=== PATIENT | male | born 1945 | race Caucasian/White ===

== ENCOUNTER 2016-08-20 11:09 | Inpatient (IN) | payer MEDICARE, BC ==
[2016-08-20] MEDS ORDERED: NS 0.9% 1000 ML* 1,000 ML IV ONE (12:21)
[2016-08-20 12:29] LABS: Hematocrit 28 % (42-52); Hemoglobin 8.6 g/dl (14.0-18.0); Mean Corpuscular HGB Conc 31 g/dl (31-36); Mean Corpuscular Hemoglobin 24 pg (27-31); Mean Corpuscular Volume 78 fL (80-94); Mean Platelet Volume 8 um3 (7.4-10.4); Red Blood Count 3.61 10^6/ul (4.0-5.4); Red Cell Distribution Width 23 % (10.5-15); White Blood Count 21.1 10^3/ul (3.5-10.8)
[2016-08-20 12:41] LABS: ALT 34 U/L (7-52); AST 11 U/L (13-39); Albumin 3.2 g/dL (3.2-5.2); Alkaline Phosphatase 66 U/L (34-104); Anion Gap 8 mmol/L (2-11); BUN/Creatinine Ratio 17.5 (8-20); Blood Urea Nitrogen 21 mg/dL (6-24); CO2 Carbon Dioxide 26 mmol/L (22-32); Calcium 9.1 mg/dL (8.6-10.3); Chloride 93 mmol/L (101-111); EGFR African American 77.2 (>60); Globulin 3.3 g/dL (2-4); Glucose 119 mg/dL (70-100); Sodium 127 mmol/L (133-145); Total Protein 6.5 g/dL (6.4-8.9)
[2016-08-20 12:45] LABS: Add Diff/Slide Review? Slide Review Added; Comments Flag Yes
[2016-08-20 12:53] LABS: Urine Bacteria Absent (Absent); Urine Bilirubin Negative (Negative); Urine Glucose 1+(50 mg/dL) (Negative); Urine Nitrite Negative (Negative)
[2016-08-20] MEDS ORDERED: NS 0.9% 1000 ML* 400 ML IV ONE (13:37)
[2016-08-20] MEDS ORDERED: Vancomycin(*) 1,500 MG in NS 0.9% 250 ML* 250 ML IVPB ONE (13:38)
[2016-08-20] MEDS ORDERED: Piperac/Tazob 3.375 gm in NS* 3.375 GM/100 ML BAG IVPB ONE (13:38)
[2016-08-20 14:11] LABS: Hypochromasia 2+; Immature Granulocytes 18 % (0-9); Metamyelocytes % 1 % (0-2); Neutrophil % 79 % (38-83); Tear Drop Cells 1+
[2016-08-20 14:12] LABS: Microcytosis 1+; Polychromasia 1+
[2016-08-20 14:13] LABS: Macrocytosis 1+
--- NOTE | 2016-08-20 14:40 | RAD ---
INDICATION: Leukocytosis COMPARISON: None TECHNIQUE: PA and lateral views of the chest were obtained. FINDINGS: The heart and mediastinum are normal in size and contour. There is a patchy density involving the mid-level and lower left lung. On the lateral view chest x-ray is density appears to be bordered posteriorly by the major fissure indicating pneumonia of the left upper lobe. There is no evidence of large pleural effusion. Visualized bones are normal for the patient's age. There is no radiographic evidence of free air beneath the diaphragm IMPRESSION: LEFT UPPER LOBE PNEUMONIA.
[2016-08-20] MEDS ORDERED: Thiamine IV* 100 MG/ML 2 ML VIAL IM ONE (16:29)
[2016-08-20] MEDS ORDERED: Acetaminophen TAB* 325 MG PO PRN (16:29)
[2016-08-20] MEDS ORDERED: methylPREDNISolone 125 MG* 2 ML VIAL IV ONE (17:00)
[2016-08-20] MEDS ORDERED: LORazepam INJ* 2 MG/ML 1 ML VIAL IV SCH (17:00)
[2016-08-20 17:01] LABS: C Reactive Protein 426.69 mg/L (< 5.00)
[2016-08-20] MEDS ORDERED: Albuterol/Ipratropium NEB.SOL* Albuterol 2.5 MG/Ipratropium 0.5 MG 3 ML INH PRN (17:01)
[2016-08-20] MEDS: NS 0.9% 1000 ML* 1,000 ML IV SCH (17:32)
[2016-08-20 17:44] LABS: Alcohol < 10 mg/dL (<10)
[2016-08-20] MEDS ORDERED: Atorvastatin* 40 MG TAB PO SCH (18:00)
--- NOTE | 2016-08-20 18:44 | ED ---
Eduardo Leos Billy, scribed for Víctor Marks MD on 08/20/16 at 1221 . Complex/Multi-Sys Presentation - HPI Summary HPI Summary: Patient is a 70 year-old male coming to the ED after he was referred by Dr. Kerns for elevated WBC and dehydration. The patient complains of fever and chills (TMax 102F) for 2 days. He took Tylenol PEDIATRIC ANESTHESIOLOGIST which did not improve his symptoms. He also reports diarrhea without any blood in the stool or associated abdominal pain. Positive dizziness, cough, and congestion. Denies any sore throat or earache. Denies urinary symptoms. He has left foot pain secondary to gout, but he states this has been ongoing for several weeks and is unchanged. Denies home O2 or inhaler use. No PMHx of DM or COPD. No flu shot this year. - History Of Current Complaint Chief Complaint: EDFever Time Seen by Provider: 08/20/16 11:51 Hx Obtained From: Patient Onset/Duration: Gradual Onset, Lasting Days, Still Present Timing: Constant Severity Currently: Moderate Severity Initially: Moderate Aggravating Factor(s): n/a Alleviating Factor(s): n/a Associated Signs And Symptoms: Positive: Dizziness, Cough, Diarrhea, Fever, Other - congestion, chills. Negative: Abdominal Pain, Dysuria - Allergies/Home Medications Allergies/Adverse Reactions: Allergies Allergy/AdvReac Type Severity Reaction Status Date / Time No Known Allergies Allergy Verified 08/20/16 11:18 Home Medications: Home Medications Colchicine* [Colcrys*] 0.6 mg PO BID 08/20/16 [History Confirmed 08/20/16] predniSONE TAB* [Deltasone TAB*] 5 mg PO BID 08/20/16 [History Confirmed ] PMH/Surg Hx/FS Hx/Imm Hx Endocrine/Hematology History: Denies: Hx Diabetes Cardiovascular History: Reports: Hx Hypercholesterolemia, Hx Hypertension Denies: Hx Pacemaker/ICD History: Denies: Hx Dialysis, Hx Renal Disease Musculoskeletal History: Reports: Hx Bursitis, Hx Gout Sensory History: Reports: Hx Contacts or Glasses - for reading Denies: Hx Hearing Aid Opthamlomology History: Reports: Hx Contacts or Glasses - for reading Psychiatric History: Denies: Hx Panic Disorder - Surgical History Surgery Procedure, Year, and Place: 2011 cataract. Lt knee surgery Infectious Disease History: No Infectious Disease History: Denies: Traveled Outside the [place] in Last 30 Days - Family History Known Family History: Negative: Cardiac Disease, Hypertension, Diabetes - Social History Alcohol Use: Daily Alcohol Amount: 4-6/CANS DAY Substance Use Type: Reports: None Smoking Status (MU): Former Smoker Type: Cigarettes Amount Used/How Often: DOWN TO 4/DAY Length of Time of Smoking/Using Tobacco: 53 YEARS Have You Smoked in the Last Year: Yes Review of Systems Positive: Fever, Chills Positive: Other - nasal congestion. Negative: Sore Throat, Ear Ache Positive: Cough Positive: Diarrhea. Negative: Abdominal Pain Negative: dysuria, hematuria Positive: Other - left foot pain Neurological: Other - dizziness All Other Systems Reviewed And Are Negative: Yes Physical Exam - Summary Physical Exam Summary: General: Comfortable, pleasant, alert. He feels hot, but is nontoxic-appearing. HEENT: Moist mucosa. No pharyngeal redness. TMs pearly white without any effusions or redness. Neck: Soft, supple, no adenopathy, no edema. Heart: S1, S2, tachycardic. Negative murmur/rub/gallops Lungs: Clear, breathing comfortably, good air movement throughout. Negative wheezes/rales. Abd: Soft, flat, nontender. No guarding. Extremities: No edema, no calf tenderness. First MTP joint is mildly tender without skin breakdown; it is not hot or red. There is a shallow stage 3 ulcer outside the fifth MTP joint laterally; it is tender without surrounding redness , not hot, not fluctuant, not indurated, no streaking; it is tender, but he states it is no more than usual. Neuro: A&Ox3. Psych: Logical, coherent. Triage Information Reviewed: Yes Vital Signs On Initial Exam: Initial Vitals Temp Pulse Resp BP Pulse Ox 102.4 F 127 18 143/53 98 08/20/16 11:10 08/20/16 11:10 08/20/16 11:10 08/20/16 11:10 08/20/16 11:10 Vital Signs Reviewed: Yes Diagnostics - Vital Signs Vital Signs Temp Pulse Resp BP Pulse Ox 08/20/16 11:10 102.4 F 127 18 143/53 98 - Laboratory Lab Results: Lab Results 08/20/16 08/20/1608/20/16 Range/Units 12:10 12:10 12:10 WBC 21.1 H (3.5-10.8) 10^3/ul RBC 3.61 L (4.0-5.4) 10^6/ul Hgb 8.6 L (14.0-18.0) g/dl Hct 28 L (42-52) % MCV 78 L (80-94) fL MCH 24 L (27-31) pg MCHC 31 (31-36) g/dl RDW 23 H (10.5-15) % Plt Count 441 (150-450) 10^3/ul MPV 8 (7.4-10.4) um3 Immature Gran % (Auto) 18 H (0-9) % Neut % (Auto) 96.0 H (38-83) % Lymph % (Auto) 2.2 L (25-47) % Dickenson % (Auto) 1.7 (1-9) % Eos % (Auto) 0.1 (0-6) % Baso % (Auto) 0 (0-2) % Absolute Neuts (auto) 20.3 H (1.5-7.7) 10^3/ul Absolute Lymphs (auto) 0.5 L (1.0-4.8) 10^3/ul Absolute Monos (auto) 0.4 (0-0.8) 10^3/ul Absolute Eos (auto) 0 (0-0.6) 10^3/ul Absolute Basos (auto) 0 (0-0.2) 10^3/ul Absolute Nucleated RBC 0.01 10^3/ul Neutrophils % 79 (38-83) % Band Neutrophils % 17 H (0-8) % Lymphocytes % 2 L (25-47) % Monocytes % 1 (0-13) % Metamyelocytes % 1 (0-2) % Nucleated RBC % 0 Normal RBC Morphology Not Reportable Polychromasia 1+ Hypochromasia 2+ Microcytosis 1+ Macrocytosis 1+ Tear Drop Cells 1+ Hem Pathologist Commnt Pending INR (Anticoag Therapy) 1.21 H (0.89-1.11) APTT 28.8 (26.0-36.3) seconds Sodium 127 L (133-145) mmol/L Potassium 4.0 (3.5-5.0) mmol/L Chloride 93 L (101-111) mmol/L Carbon Dioxide 26 (22-32) mmol/L Anion Gap 8 (2-11) mmol/L BUN 21 (6-24) mg/dL Creatinine 1.20 H (0.67-1.17) mg/dL Est GFR ( Amer) 77.2 (>60) Est GFR (Non-Af Amer) 60.0 (>60) BUN/Creatinine Ratio 17.5 (8-20) Glucose 119 H (70-100) mg/dL Lactic Acid (0.5-2.0) mmol/L Calcium 9.1 (8.6-10.3) mg/dL Total Bilirubin 0.50 (0.2-1.0) mg/dL AST 11 L (13-39) U/L ALT 34 (7-52) U/L Alkaline Phosphatase 66 (34-104) U/L C-Reactive Protein 426.69 H (< 5.00) mg/L Total Protein 6.5 (6.4-8.9) g/dL Albumin 3.2 (3.2-5.2) g/dL Globulin 3.3 (2-4) g/dL Albumin/Globulin Ratio 1.0 (1-3) Procalcitonin (<0.6) ng/mL Urine Color Urine Appearance Urine pH (5-9) Ur Specific Kellogg (1.010-1.030) Urine Protein (Negative) Urine Ketones (Negative) Urine Blood (Negative) Urine Nitrate (Negative) Urine Bilirubin (Negative) Urine Urobilinogen (Negative) Ur Leukocyte Esterase (Negative) Urine WBC (Auto) (Absent) Urine RBC (Auto) (Absent) Ur Squamous Epith Cells (Absent) Urine Bacteria (Absent) Urine Glucose (Negative) Serum Alcohol < 10 (<10) mg/dL Influenza A (Rapid) (Negative) Influenza B (Rapid) (Negative) 08/20/16 08/20/16 08/20/16 Range/Units 12:10 12:10 12:24 WBC (3.5-10.8) 10^3/ul RBC (4.0-5.4) 10^6/ul Hgb (14.0-18.0) g/dl Hct (42-52) % MCV (80-94) fL MCH (27-31) pg MCHC (31-36) g/dl RDW (10.5-15) % Plt Count (150-450) 10^3/ul MPV (7.4-10.4) um3 Immature Gran % (Auto) (0-9) % Neut % (Auto) (38-83) % Lymph % (Auto) (25-47) % Dickenson % (Auto) (1-9) % Eos % (Auto) (0-6) % Baso % (Auto) (0-2) % Absolute Neuts (auto) (1.5-7.7) 10^3/ul Absolute Lymphs (auto) (1.0-4.8) 10^3/ul Absolute Monos (auto) (0-0.8) 10^3/ul Absolute Eos (auto) (0-0.6) 10^3/ul Absolute Basos (auto) (0-0.2) 10^3/ul Absolute Nucleated RBC 10^3/ul Neutrophils % (38-83) % Band Neutrophils % (0-8) % Lymphocytes % (25-47) % Monocytes % (0-13) % Metamyelocytes % (0-2) % Nucleated RBC % Normal RBC Morphology Polychromasia Hypochromasia Microcytosis Macrocytosis Tear Drop Cells Hem Pathologist Commnt INR (Anticoag Therapy) (0.89-1.11) APTT (26.0-36.3) seconds Sodium (133-145) mmol/L Potassium (3.5-5.0) mmol/L Chloride (101-111) mmol/L Carbon Dioxide (22-32) mmol/L Anion Gap (2-11) mmol/L BUN (6-24) mg/dL Creatinine (0.67-1.17) mg/dL Est GFR ( Amer) (>60) Est GFR (Non-Af Amer) (>60) BUN/Creatinine Ratio (8-20) Glucose (70-100) mg/dL Lactic Acid 2.0 (0.5-2.0) mmol/L Calcium (8.6-10.3) mg/dL Total Bilirubin (0.2-1.0) mg/dL AST (13-39) U/L ALT (7-52) U/L Alkaline Phosphatase (34-104) U/L C-Reactive Protein (< 5.00) mg/L Total Protein (6.4-8.9) g/dL Albumin (3.2-5.2) g/dL Globulin (2-4) g/dL Albumin/Globulin Ratio (1-3) Procalcitonin 3.9 H (<0.6) ng/mL Urine Color Urine Appearance Urine pH (5-9) Ur Specific Kellogg (1.010-1.030) Urine Protein (Negative) Urine Ketones (Negative) Urine Blood (Negative) Urine Nitrate (Negative) Urine Bilirubin (Negative) Urine Urobilinogen (Negative) Ur Leukocyte Esterase (Negative) Urine WBC (Auto) (Absent) Urine RBC (Auto) (Absent) Ur Squamous Epith Cells (Absent) Urine Bacteria (Absent) Urine Glucose (Negative) Serum Alcohol (<10) mg/dL Influenza A (Rapid) Negative (Negative) Influenza B (Rapid) Negative (Negative) 08/20/16 08/20/16 Range/Units 12:27 17:45 WBC (3.5-10.8) 10^3/ul RBC (4.0-5.4) 10^6/ul Hgb (14.0-18.0) g/dl Hct (42-52) % MCV (80-94) fL MCH (27-31) pg MCHC (31-36) g/dl RDW (10.5-15) % Plt Count (150-450) 10^3/ul MPV (7.4-10.4) um3 Immature Gran % (Auto) (0-9) % Neut % (Auto) (38-83) % Lymph % (Auto) (25-47) % Dickenson % (Auto) (1-9) % Eos % (Auto) (0-6) % Baso % (Auto) (0-2) % Absolute Neuts (auto) (1.5-7.7) 10^3/ul Absolute Lymphs (auto) (1.0-4.8) 10^3/ul Absolute Monos (auto) (0-0.8) 10^3/ul Absolute Eos (auto) (0-0.6) 10^3/ul Absolute Basos (auto) (0-0.2) 10^3/ul Absolute Nucleated RBC 10^3/ul Neutrophils % (38-83) % Band Neutrophils % (0-8) % Lymphocytes % (25-47) % Monocytes % (0-13) % Metamyelocytes % (0-2) % Nucleated RBC % Normal RBC Morphology Polychromasia Hypochromasia Microcytosis Macrocytosis Tear Drop Cells Hem Pathologist Commnt INR (Anticoag Therapy) (0.89-1.11) APTT (26.0-36.3) seconds Sodium (133-145) mmol/L Potassium (3.5-5.0) mmol/L Chloride (101-111) mmol/L Carbon Dioxide (22-32) mmol/L Anion Gap (2-11) mmol/L BUN (6-24) mg/dL Creatinine (0.67-1.17) mg/dL Est GFR ( Amer) (>60) Est GFR (Non-Af Amer) (>60) BUN/Creatinine Ratio (8-20) Glucose (70-100) mg/dL Lactic Acid 1.8 (0.5-2.0) mmol/L Calcium (8.6-10.3) mg/dL Total Bilirubin (0.2-1.0) mg/dL AST (13-39) U/L ALT (7-52) U/L Alkaline Phosphatase (34-104) U/L C-Reactive Protein (< 5.00) mg/L Total Protein (6.4-8.9) g/dL Albumin (3.2-5.2) g/dL Globulin (2-4) g/dL Albumin/Globulin Ratio (1-3) Procalcitonin (<0.6) ng/mL Urine Color Yellow Urine Appearance Clear Urine pH 6.0 (5-9) Ur Specific Kellogg 1.016 (1.010-1.030) Urine Protein 2+(100 mg/dl) H (Negative) Urine Ketones Negative (Negative) Urine Blood Negative (Negative) Urine Nitrate Negative (Negative) Urine Bilirubin Negative (Negative) Urine Urobilinogen Negative (Negative) Ur Leukocyte Esterase Negative (Negative) Urine WBC (Auto) Trace(0-5/hpf) (Absent) Urine RBC (Auto) Trace(0-2/hpf) (Absent) Ur Squamous Epith Cells Present H (Absent) Urine Bacteria Absent (Absent) Urine Glucose 1+(50 mg/dl) H (Negative) Serum Alcohol (<10) mg/dL Influenza A (Rapid) (Negative) Influenza B (Rapid) (Negative) Result Diagrams: 08/20/16 12:10 08/20/16 12:10 Lab Statement: Any lab studies that have been ordered have been reviewed, and results considered in the medical decision making process. - Radiology CXR Radiology Interpretation Completed By: Radiologist - LEFT UPPER LOBE PNEUMONIA. Complex Multi-Symp Course/Dx Assessment/Plan: For the last 2 days, he has had a high fever, chills, increased cough, but no other focal signs or symptoms of infection. Yes[place] WBC was 63737, today it is [address]. I believe this is higher than can be simply explained by viral illness. At this point, with fever, tachycardia, very elevated WBC, I will treat him according to sepsis protocol and admit for at least 24 hours to see if blood cultures are negative. He has also had diarrhea and has been admitted several times in the last 90 days. We will add on C. dif to complete the workup. - Diagnoses Differential Diagnoses/HQI/PQRI: Urinary Tract Infection Provider Diagnoses: Sepsis - Physician Notifications Discussed Care Of Patient With: Dr. Arzate (hospitalist) @ 1437: accepts admission. Discharge - Discharge Plan Condition: Stable Disposition: ADMITTED TO [facility] The documentation as recorded by the Eduardo santana Billy accurately reflects the service I personally performed and the decisions made by me, Víctor Marks MD.
[2016-08-20] MEDS ORDERED: Azithromycin IV(*) 500 MG in NS 0.9% 250 ML* 250 ML IVPB SCH (20:00)
[2016-08-20] MEDS: Colchicine* 0.6 MG TAB PO SCH (21:26)
[2016-08-20] MEDS: Heparin VIAL(*) 5000 UNITS/ML VIAL (FIVE THOUSAND) SUBCUT SCH (21:26)
[2016-08-20] MEDS: Gabapentin CAP(*) 300 MG PO SCH (21:26)
[2016-08-20] MEDS: cefTRIAXone VIAL(*) 1,000 MG in NS 0.9% 50 ML* 50 ML IVPB SCH (22:44)
[2016-08-21] MEDS: NS 0.9% 1000 ML* 1,000 ML IV SCH (02:11)
--- NOTE | 2016-08-21 04:05 | HP ---
HISTORY AND PHYSICAL: DATE OF ADMISSION: 08/20/16 PROVIDER: Juan Carlos Milton NP ATTENDING PHYSICIAN: Dr. Arzate *(report dictated by Juan Carlos Milton NP). PRIMARY CARE PROVIDER: Dr. Geronimo. CHIEF COMPLAINT: Referred by Dr. Purvis for elevated white blood cell count and dehydration. HISTORY OF PRESENT ILLNESS: Mr. Nino is a 70-year-old male with a past medical history of hypertension, peripheral vascular disease, status post femoral stenting, alcohol abuse, hyperlipidemia and gout, who presents to the emergency department today referred by Dr. Purvis for increased white blood cell count and dehydration. Mr. Nino reports that yesterday he went to his primary care doctor's office, was seen as a same day appointment due to 1 day of fevers. The patient reports on 2 days ago, he developed a fever of 101 and felt like he was coming down with a cold. Then yesterday morning, he noted that he was still feverish and went to his primary care doctor who referred him to get labs. He was called this morning with recommendation to come to the emergency department. The patient reports he has also had accompanied diarrhea for 2 days. He denies any blood in his stool. He reports mildly productive cough. He reports normal appetite. No abdominal pain, nausea , or vomiting. Denies chest pain. He does report some shortness of breath when he coughs. Denies any lower extremity edema. He reports general myalgias. No headache, vision changes, gait abnormalities. No rashes, lesions, or open wounds. In the emergency department, reviewing the patient's lab values from yesterday, it was noted yesterday he had a white blood cell count of 33,000 and today is 21 ,000. It was noted yesterday, he had band neutrophils of 40 and today they are down to 17. Creatinine appears to be slightly elevated above his baseline and is noted to be hyponatremic. His temperature in the emergency department on arrival was 102.4. As well, he is noted to have tachycardia with a heart rate in the low 100s and blood pressure on the soft side, systolically in the low 100s per patient, screening positive for sepsis. The patient has a chest x-ray showing left upper lobe pneumonia and elevated procalcitonin of 3.9. Hospital Medicine was asked to evaluate the patient for sepsis secondary to pneumonia. PAST MEDICAL HISTORY: 1. Gout. Per patient, he had active gout in his left big toe, which he reports now to be much better. 2. Hypertension. 3. Hyperlipidemia. 4. Alcohol abuse. No history of detox. 5. Neuropathy. 6. History of olecranon bursitis in the left elbow. 7. Peripheral vascular disease, status post femoral endarterectomy and lower extremity stent, on aspirin and Plavix. 8. Recent hospitalization on 07/12/16 to 07/13/16 for acute blood loss anemia , suspected secondary to GI bleed, presenting with a hemoglobin of 5.7. He underwent a colonoscopy on 07/27/[address] Carrillo, which showed 2 large polyps which were removed per Dr. Carrillo. He thought that the possible GI bleed could have been secondary to the large polyp. 9. History of tobacco abuse, quitting approximately a year and a half ago. HOME MEDICATIONS: 1. Allopurinol 100 mg p.o. daily. 2. Prednisone 5 mg p.o. b.i.d. 3. Colchicine 0.6 mg p.o. b.i.d. 4. Lipitor 40 mg p.o. q.p.m. 5. Lisinopril 40 mg p.o. daily. 6. Gabapentin 300 mg p.o. b.i.d. 7. Norvasc 2.5 mg p.o. b.i.d. 8. Protonix 20 mg p.o. daily. ALLERGIES: No known allergies. FAMILY HISTORY: No family history of coronary artery disease, diabetes, or cancer. SOCIAL HISTORY: The patient has a 53-year smoking history, quitting about a year and a half ago. The patient reports he has not had an alcoholic drink since Thanksgiving of this year. Denies recreational drug use. The patient lives in his own home with his , who is his healthcare proxy. They have 2 grown children. His 's name is Mitchell Nino, number [phone] or . REVIEW OF SYSTEMS: A 14-point review of systems was performed. All the pertinent positives and negatives are mentioned in the history of present illness. All the remaining systems are negative. PHYSICAL EXAMINATION GENERAL: Chronically ill-appearing 70-year-old male, sitting up in the emergency department stretcher, alert and oriented x3, in no acute distress, appropriate to situation, appears nontoxic. VITAL SIGNS: Temperature 98.6, heart rate 105, respirations 23, O2 sat 96% on 2 L nasal cannula, blood pressure 102/61. HEENT: Head is normocephalic, atraumatic. Pupils are equal and reactive to light. Oropharynx is clear. Moist mucous membranes. Good dentition. No oropharyngeal edema or erythema noted. NECK: Supple. No supraclavicular lymphadenopathy. RESPIRATORY: No accessory muscle use. Left upper lobe is mildly diminished; otherwise good aeration throughout. No rhonchi, wheezes, or rales noted. CARDIAC: S1, S2. No murmurs, rubs, or gallops appreciated. No lower extremity edema noted; 1+ DP pulses bilaterally. ABDOMEN: Distended, obese, soft, nontender, nondistended. Normal bowel sounds x4. MUSCULOSKELETAL: No clubbing or cyanosis noted. Full range of motion in all extremities. Strength is 5/5 throughout. Left foot healing ulcer on the fifth MTP joint appears to be healing. No erythema or drainage noted. No foul odor. Left first big toe is tender to palpation over the joint. There is no noted edema or erythema. SKIN: No rashes, lesions or open wounds noted. NEUROLOGIC: Cranial nerves II through XII are intact. Moves all extremities equally. Sensation to lower extremities intact to light touch. PSYCH: Alert and oriented x3, appropriate to situation. LABORATORY DATA/DIAGNOSTIC STUDIES: Sodium 127, potassium 4.0, chloride 93, carbon dioxide 26, anion gap 8, BUN 21, creatinine 1.20, glucose 119, lactic acid 2.0, calcium 9.1, total bilirubin 0.50, AST 11, ALT 34, alkaline phosphatase 66, total protein 6.5, albumin 3.2, procalcitonin 3.9. INR 1.21. WBC is 21.1, RBC 3.61, Hgb is 8.6, Hct 28, MCV 78, MCH 24, MCHC 31, RDW 23, platelet count 441, band neutrophils 17. Urinalysis: 2+ protein, squamous epithelial cells present high, glucose 1+, otherwise negative. Influenza A, B negative. Chest x-ray. Impression: Left upper lobe pneumonia. ASSESSMENT AND PLAN: Mr. Nino is a 70-year-old male with a past medical history of peripheral vascular disease, status post lower extremity stent, gout , hypertension, history of alcohol abuse and tobacco abuse, presents to the emergency department today by referral of his primary care provider's office for increased WBCs and dehydration and found to have a left upper lobe pneumonia and screen positive for sepsis. 1. Sepsis. The patient screens positive for fever, chills, leukocytosis. His qSOFA score is 1. The patient was given 2 L of normal saline in the emergency department. Will continue the patient on normal saline at 125 mL an hour. The patient appears nontoxic. No lactic acidosis. He is noted to have procalcitonin of 3.9. He was given Zosyn and vancomycin in the emergency department. Will continue the patient on ceftriaxone and azithromycin and treat him for community- acquired pneumonia. He has not had any antibiotics in the last 90 days. Send urine legionella and S. pneumoniae antigens. Blood cultures have been sent. Send sputum culture. Prednisone 40 mg p.o. daily x5 days. We will monitor the patient on telemetry due to his sepsis. Suspect source is community-acquired pneumonia. 2. Microcytic anemia, appears to be around the patient's baseline. He did have a recent admission from 07/12/16 to 07/13/16 for acute blood loss anemia suspected to be secondary to two large polyps, which were found on a colonoscopy , 07/27/16, as an outpatient. At that time, he was also on aspirin and Plavix for his peripheral vascular disease and lower extremity stent. We will send stool for occult blood. The patient should be restarted on his aspirin and Plavix per Dr. Carrillo' procedure note from 07/27/16, it does state the patient aspirin should be held only for a week. Per patient, he has not been restarted on these medications. Continue Protonix. 3. Hyponatremia, suspect secondary to dehydration. Plan to give normal saline overnight and recheck in the morning. 4. Hypertension. Plan to hold lisinopril and Norvasc in the setting of soft blood pressure. 5. Gout. Per patient, his gout is much improved over the past month. Continue allopurinol and colchicine. 6. Alcohol abuse. Per patient, he has not had any alcohol since . We will add on an alcohol level. 7. Peripheral neuropathy, status post stent placement in 2014. Again as stated above, it is possible the patient could be restarted his aspirin and Plavix as per Dr. Carrillo' note. This is only supposed to be held a week in the beginning of July after the procedure. We will send stool for occult blood. This should be discussed prior to discharge. 8. DVT prophylaxis. Heparin subcu. 9. Code status. DNR. MOLST is filled out and that is on the chart. His is his healthcare proxy. TIME SPENT: Approximately 60 minutes were spent on this admission. This case was discussed with the attending physician, Dr. Arzate, who agrees with the plan of care. JUAN CARLOS MILTON NP CC: Dr. Geronimo* [id number]/CPS #: [id number] RIANA
[2016-08-21] MEDS: Heparin VIAL(*) 5000 UNITS/ML VIAL (FIVE THOUSAND) SUBCUT SCH ×3 (05:42→21:23)
[2016-08-21 06:02] LABS: Hematocrit 25 % (42-52); Hemoglobin 7.6 g/dl (14.0-18.0); Mean Corpuscular HGB Conc 31 g/dl (31-36); Mean Corpuscular Hemoglobin 24 pg (27-31); Mean Platelet Volume 8 um3 (7.4-10.4); Red Blood Count 3.15 10^6/ul (4.0-5.4); Red Cell Distribution Width 22 % (10.5-15); White Blood Count 15.9 10^3/ul (3.5-10.8)
[2016-08-21 06:11] LABS: Add Diff/Slide Review? Slide Review Added; Comments Flag Yes; Mean Corpuscular Volume 78 fL (80-94)
[2016-08-21 06:17] LABS: BUN/Creatinine Ratio 21.9 (8-20); Calcium 8.5 mg/dL (8.6-10.3); EGFR African American 99.9 (>60); EGFR Non-African American 77.7 (>60); Potassium 3.9 mmol/L (3.5-5.0)
[2016-08-21] MEDS: Atorvastatin* 40 MG TAB PO SCH (08:30)
[2016-08-21] MEDS: Thiamine TAB* 100 MG TAB PO SCH (08:30)
[2016-08-21] MEDS: Omeprazole CAP* 20 MG PO SCH (08:30)
[2016-08-21] MEDS: Allopurinol TAB* 100 MG PO SCH (08:30)
[2016-08-21] MEDS: predniSONE TAB* 20 MG PO SCH (08:30)
[2016-08-21] MEDS: Gabapentin CAP(*) 300 MG PO SCH ×2 (08:30→20:22)
[2016-08-21] MEDS: Folic Acid TAB* 1 MG PO SCH (08:30)
[2016-08-21] MEDS: Multivitamins/Minerals TAB PO SCH (08:30)
[2016-08-21] MEDS: Colchicine* 0.6 MG TAB PO SCH ×2 (08:31→20:24)
--- NOTE | 2016-08-21 12:01 | PN ---
Subjective Date of Service: 08/21/16 Interval History: Patient seen this morning. [place] some sweats overnight. Has begun to cough, dry, non-productive. Still with some loose stools, states 3 episodes today. Overall feels he is improving. Eating well today. Family History: Unchanged from Admission Social History: Unchanged from Admission Past Medical History: Unchanged from Admission Objective Active Medications: Acetaminophen (Tylenol Tab*) 650 mg PO Q4H PRN Albuterol/Ipratropium (Duoneb Neb.Stella*) 1 neb INH Q4H PRN Allopurinol (Zyloprim Tab*) 100 mg PO DAILY [facility] Atorvastatin Calcium (Lipitor*) 40 mg PO 0900 JUAN R Colchicine (Colcrys*) 0.6 mg PO BID JUAN R Folic Acid (Folvite Tab*) 1 mg PO DAILY [facility] Gabapentin (Neurontin Cap(*)) 300 mg PO BID [facility] Heparin Sodium (Porcine) (Heparin Vial(*)) 5,000 units SUBCUT Q8HR [facility] Sodium Chloride (Ns 0.9% 1000 Ml*) 1,000 mls @ 125 mls/hr IV PER RATE JUAN R Ceftriaxone Sodium 1,000 mg/ (Sodium Chloride) 50 mls @ 200 mls/hr IVPB Q24H JUAN R Azithromycin 500 mg/ Sodium (Chloride) 250 mls @ 250 mls/hr IVPB Q24H [facility] Multivitamins/Minerals (Theragran/Minerals Tab*) 1 tab PO DAILY [facility] Omeprazole (Prilosec Cap*) 20 mg PO DAILY JU[facility] Prednisone (Deltasone Tab*) 40 mg PO DAILY [facility] Thiamine HCl (Vitamin B-1 Tab*) 100 mg PO DAILY [facility] Vital Signs 08/20/16 08/20/16 08/20/16 18:00 19:17 19:47 Temperature 99.2 F Pulse Rate 89 100 Respiratory 29 14 14 Rate Blood Pressure 98/54 109/41 (mmHg) O2 Sat by Pulse 97 94 Oximetry 08/20/16 08/20/16 08/20/16 20:00 21:26 23:20 Temperature 98.0 F Pulse Rate 88 Respiratory 14 20 16 Rate Blood Pressure 96/46 (mmHg) O2 Sat by Pulse 94 Oximetry 08/20/16 08/21/16 08/21/16 23:26 03:35 07:31 Temperature 97.6 F 97.5 F Pulse Rate 87 88 Respiratory 16 16 16 Rate Blood Pressure 105/49 116/51 (mmHg) O2 Sat by Pulse 93 94 Oximetry 08/21/16 08/21/16 08/21/16 07:41 08:30 10:30 Temperature Pulse Rate Respiratory 16 16 18 Rate Blood Pressure (mmHg) O2 Sat by Pulse Oximetry Oxygen Devices in Use Now: None Appearance: Middle-aged, M, laying in bed in NAD Eyes: No Scleral Icterus Ears/Nose/Mouth/Throat: Mucous Membranes Moist Neck: NL Appearance and Movements; NL JVP Respiratory: Symmetrical Chest Expansion and Respiratory Effort, Clear to Auscultation Cardiovascular: NL Sounds; No Murmurs; No JVD, RRR Abdominal: NL Sounds; No Tenderness; No Distention Lymphatic: No Cervical Adenopathy Extremities: No Edema Skin: No Rash or Ulcers, - - warm, diaphoretic Neurological: Alert and Oriented x 3 Result Diagrams: 08/21/16 05:33 08/21/16 05:33 Additional Lab and Data: Lab Results 08/20/16 08/20/16 08/20/16 Range/Units 12:10 12:10 12:10 WBC 21.1 H (3.5-10.8) 10^3/ul RBC 3.61 L (4.0-5.4) 10^6/ul Hgb 8.6 L (14.0-18.0) g/dl Hct 28 L (42-52) % MCV 78 L (80-94) fL MCH 24 L (27-31) pg MCHC 31 (31-36) g/dl RDW 23 H (10.5-15) % Plt Count 441 (150-450) 10^3/ul MPV 8 (7.4-10.4) um3 Immature Gran % (Auto) 18 H (0-9) % Neut % (Auto) 96.0 H (38-83) % Lymph % (Auto) 2.2 L (25-47) % [place] % (Auto) 1.7 (1-9) % Eos % (Auto) 0.1 (0-6) % Baso % (Auto) 0 (0-2) % Absolute Neuts (auto) 20.3 H (1.5-7.7) 10^3/ul Absolute Lymphs (auto) 0.5 L (1.0-4.8) 10^3/ul Absolute Monos (auto) 0.4 (0-0.8) 10^3/ul Absolute Eos (auto) 0 (0-0.6) 10^3/ul Absolute Basos (auto) 0 (0-0.2) 10^3/ul Absolute Nucleated RBC 0.01 10^3/ul Neutrophils % 79 (38-83) % Band Neutrophils % 17 H (0-8) % Lymphocytes % 2 L (25-47) % Monocytes % 1 (0-13) % Metamyelocytes % 1 (0-2) % Nucleated RBC % 0 Normal RBC Morphology Not Reportable Polychromasia 1+ Hypochromasia 2+ Microcytosis 1+ Macrocytosis 1+ Tear Drop Cells 1+ Hem Pathologist Commnt Pending INR (Anticoag Therapy) 1.21 H (0.89-1.11) APTT 28.8 (26.0-36.3) seconds Sodium 127 L (133-145) mmol/L Potassium 4.0 (3.5-5.0) mmol/L Chloride 93 L (101-111) mmol/L Carbon Dioxide 26 (22-32) mmol/L Anion Gap 8 (2-11) mmol/L BUN 21 (6-24) mg/dL Creatinine 1.20 H (0.67-1.17) mg/dL Est GFR ( Amer) 77.2 (>60) Est GFR (Non-Af Amer) 60.0 (>60) BUN/Creatinine Ratio 17.5 (8-20) Glucose 119 H (70-100) mg/dL Lactic Acid (0.5-2.0) mmol/L Calcium 9.1 (8.6-10.3) mg/dL Total Bilirubin 0.50 (0.2-1.0) mg/dL AST 11 L (13-39) U/L ALT 34 (7-52) U/L Alkaline Phosphatase 66 (34-104) U/L C-Reactive Protein 426.69 H (< 5.00) mg/L Total Protein 6.5 (6.4-8.9) g/dL Albumin 3.2 (3.2-5.2) g/dL Globulin 3.3 (2-4) g/dL Albumin/Globulin Ratio 1.0 (1-3) Procalcitonin (<0.6) ng/mL Urine Color Urine Appearance Urine pH (5-9) Ur Specific [place] (1.010-1.030) Urine Protein (Negative) Urine Ketones (Negative) Urine Blood (Negative) Urine Nitrate (Negative) Urine Bilirubin (Negative) Urine Urobilinogen (Negative) Ur Leukocyte Esterase (Negative) Urine WBC (Auto) (Absent) Urine RBC (Auto) (Absent) Ur Squamous Epith Cells (Absent) Urine Bacteria (Absent) Urine Glucose (Negative) Serum Alcohol < 10 (<10) mg/dL Influenza A (Rapid) (Negative) Influenza B (Rapid) (Negative) 08/20/16 08/20/16 08/20/16 Range/Units 12:10 12:10 12:24 WBC (3.5-10.8) 10^3/ul RBC (4.0-5.4) 10^6/ul Hgb (14.0-18.0) g/dl Hct (42-52) % MCV (80-94) fL MCH (27-31) pg MCHC (31-36) g/dl RDW (10.5-15) % Plt Count (150-450) 10^3/ul MPV (7.4-10.4) um3 Immature Gran % (Auto) (0-9) % Neut % (Auto) (38-83) % Lymph % (Auto) (25-47) % [place] % (Auto) (1-9) % Eos % (Auto) (0-6) % Baso % (Auto) (0-2) % Absolute Neuts (auto) (1.5-7.7) 10^3/ul Absolute Lymphs (auto) (1.0-4.8) 10^3/ul Absolute Monos (auto) (0-0.8) 10^3/ul Absolute Eos (auto) (0-0.6) 10^3/ul Absolute Basos (auto) (0-0.2) 10^3/ul Absolute Nucleated RBC 10^3/ul Neutrophils % (38-83) % Band Neutrophils % (0-8) % Lymphocytes % (25-47) % Monocytes % (0-13) % Metamyelocytes % (0-2) % Nucleated RBC % Normal RBC Morphology Polychromasia Hypochromasia Microcytosis Macrocytosis Tear Drop Cells Hem Pathologist Commnt INR (Anticoag Therapy) (0.89-1.11) APTT (26.0-36.3) seconds Sodium (133-145) mmol/L Potassium (3.5-5.0) mmol/L Chloride (101-111) mmol/L Carbon Dioxide (22-32) mmol/L Anion Gap (2-11) mmol/L BUN (6-24) mg/dL Creatinine (0.67-1.17) mg/dL Est GFR ( Amer) (>60) Est GFR (Non-Af Amer) (>60) BUN/Creatinine Ratio (8-20) Glucose (70-100) mg/dL Lactic Acid 2.0 (0.5-2.0) mmol/L Calcium (8.6-10.3) mg/dL Total Bilirubin (0.2-1.0) mg/dL AST (13-39) U/L ALT (7-52) U/L Alkaline Phosphatase (34-104) U/L C-Reactive Protein (< 5.00) mg/L Total Protein (6.4-8.9) g/dL Albumin (3.2-5.2) g/dL Globulin (2-4) g/dL Albumin/Globulin Ratio (1-3) Procalcitonin 3.9 H (<0.6) ng/mL Urine Color Urine Appearance Urine pH (5-9) Ur Specific [place] (1.010-1.030) Urine Protein (Negative) Urine Ketones (Negative) Urine Blood (Negative) Urine Nitrate (Negative) Urine Bilirubin (Negative) Urine Urobilinogen (Negative) Ur Leukocyte Esterase (Negative) Urine WBC (Auto) (Absent) Urine RBC (Auto) (Absent) Ur Squamous Epith Cells (Absent) Urine Bacteria (Absent) Urine Glucose (Negative) Serum Alcohol (<10) mg/dL Influenza A (Rapid) Negative (Negative) Influenza B (Rapid) Negative (Negative) 08/20/16 08/20/16 Range/Units 12:27 17:45 WBC (3.5-10.8) 10^3/ul RBC (4.0-5.4) 10^6/ul Hgb (14.0-18.0) g/dl Hct (42-52) % MCV (80-94) fL MCH (27-31) pg MCHC (31-36) g/dl RDW (10.5-15) % Plt Count (150-450) 10^3/ul MPV (7.4-10.4) um3 Immature Gran % (Auto) (0-9) % Neut % (Auto) (38-83) % Lymph % (Auto) (25-47) % [place] % (Auto) (1-9) % Eos % (Auto) (0-6) % Baso % (Auto) (0-2) % Absolute Neuts (auto) (1.5-7.7) 10^3/ul Absolute Lymphs (auto) (1.0-4.8) 10^3/ul Absolute Monos (auto) (0-0.8) 10^3/ul Absolute Eos (auto) (0-0.6) 10^3/ul Absolute Basos (auto) (0-0.2) 10^3/ul Absolute Nucleated RBC 10^3/ul Neutrophils % (38-83) % Band Neutrophils % (0-8) % Lymphocytes % (25-47) % Monocytes % (0-13) % Metamyelocytes % (0-2) % Nucleated RBC % Normal RBC Morphology Polychromasia Hypochromasia Microcytosis Macrocytosis Tear Drop Cells Hem Pathologist Commnt INR (Anticoag Therapy) (0.89-1.11) APTT (26.0-36.3) seconds Sodium (133-145) mmol/L Potassium (3.5-5.0) mmol/L Chloride (101-111) mmol/L Carbon Dioxide (22-32) mmol/L Anion Gap (2-11) mmol/L BUN (6-24) mg/dL Creatinine (0.67-1.17) mg/dL Est GFR ( Amer) (>60) Est GFR (Non-Af Amer) (>60) BUN/Creatinine Ratio (8-20) Glucose (70-100) mg/dL Lactic Acid 1.8 (0.5-2.0) mmol/L Calcium (8.6-10.3) mg/dL Total Bilirubin (0.2-1.0) mg/dL AST (13-39) U/L ALT (7-52) U/L Alkaline Phosphatase (34-104) U/L C-Reactive Protein (< 5.00) mg/L Total Protein (6.4-8.9) g/dL Albumin (3.2-5.2) g/dL Globulin (2-4) g/dL Albumin/Globulin Ratio (1-3) Procalcitonin (<0.6) ng/mL Urine Color Yellow Urine Appearance Clear Urine pH 6.0 (5-9) Ur Specific [place] 1.016 (1.010-1.030) Urine Protein 2+(100 mg/dl) H (Negative) Urine Ketones Negative (Negative) Urine Blood Negative (Negative) Urine Nitrate Negative (Negative) Urine Bilirubin Negative (Negative) Urine Urobilinogen Negative (Negative) Ur Leukocyte Esterase Negative (Negative) Urine WBC (Auto) Trace(0-5/hpf) (Absent) Urine RBC (Auto) Trace(0-2/hpf) (Absent) Ur Squamous Epith Cells Present H (Absent) Urine Bacteria Absent (Absent) Urine Glucose 1+(50 mg/dl) H (Negative) Serum Alcohol (<10) mg/dL Influenza A (Rapid) (Negative) Influenza B (Rapid) (Negative) Microbiology and Other Data: Microbiology 08/21/16 09:50 Gram Stain - Final Sputum Expectorated 08/21/16 05:47 Stool Occult Blood (HOLLY) - Final Stool 08/21/16 05:41 Stool Gross Appearance - Final Stool C. difficile DNA Amplification - Final 027 Presumptive NEGATIVE Toxigenic C.diff NEGATIVE Assess/Plan/Problems-Billing Assessment: S. pneumo CAP in a 70 yo M with hx of HTN, HLD, EtOH abuse, gout, neuropathy - Patient Problems (1) CAP (community acquired pneumonia) Current Visit: Yes Comment: Positive s. pneumo antigen. Leukocytosis still present but improving. Will continue IV CTX for another 24 hours. Continue Prednisone. Can d/c IVF. (2) Anemia Current Visit: Yes Comment: Hct down a bit today, likely from IVF. Will hold on restarting ASA/Plavix for now, can restart tomorrow if blood counts are stable. (3) Hyponatremia Current Visit: Yes Comment: Resolved (4) Gout Current Visit: No Comment: Continue allopurinol and colchicine (5) Hyperlipidemia Current Visit: No Comment: Cont statin (6) Hypertension Current Visit: No Comment: Holding home Lisinopril and Norvasc (7) DVT prophylaxis Current Visit: Yes Comment: HSQ Status and Disposition: Likely discharge in AM
[2016-08-21] MEDS: cefTRIAXone VIAL(*) 1,000 MG in NS 0.9% 50 ML* 50 ML IVPB SCH (19:51)
[2016-08-22] MEDS: Heparin VIAL(*) 5000 UNITS/ML VIAL (FIVE THOUSAND) SUBCUT SCH (05:30)
[2016-08-22 06:10] LABS: Hematocrit 25 % (42-52); Hemoglobin 7.7 g/dl (14.0-18.0); Mean Corpuscular HGB Conc 31 g/dl (31-36); Mean Corpuscular Hemoglobin 24 pg (27-31); Mean Corpuscular Volume 77 fL (80-94); Mean Platelet Volume 7 um3 (7.4-10.4); Red Blood Count 3.21 10^6/ul (4.0-5.4); Red Cell Distribution Width 22 % (10.5-15)
[2016-08-22 07:58] VITALS: BP 139/61
[2016-08-22] MEDS: Colchicine* 0.6 MG TAB PO SCH (08:12)
[2016-08-22] MEDS: Multivitamins/Minerals TAB PO SCH (08:13)
[2016-08-22] MEDS: predniSONE TAB* 20 MG PO SCH (08:13)
[2016-08-22] MEDS: Atorvastatin* 40 MG TAB PO SCH (08:13)
[2016-08-22] MEDS: Folic Acid TAB* 1 MG PO SCH (08:13)
[2016-08-22] MEDS: Omeprazole CAP* 20 MG PO SCH (08:13)
[2016-08-22] MEDS: Allopurinol TAB* 100 MG PO SCH (08:13)
[2016-08-22] MEDS: Gabapentin CAP(*) 300 MG PO SCH (08:13)
[2016-08-22] MEDS: Thiamine TAB* 100 MG TAB PO SCH (08:13)
--- NOTE | 2016-08-22 09:44 | DCNOTE ---
Patient seen this morning. Says he has slight cough productive of some yellow mucous. No fever or chills. No SOB. Stool is beginning to solidify. On exam, RRR, s1 and s2 present, no m/g/r, abd soft, mild distension, obese, non -tender, lungs CTA B/L, no LE edema Discharge home to complete ABx today. Has PCP f/u tomorrow.
--- NOTE | 2016-08-23 00:40 | DS ---
DISCHARGE SUMMARY: DATE OF ADMISSION: 08/20/16 DATE OF DISCHARGE: 08/22/15 PRIMARY CARE PHYSICIAN: Dr. eGronimo. PRINCIPAL DISCHARGE DIAGNOSIS: Streptococcus pneumoniae, community acquired pneumonia. SECONDARY DIAGNOSIS: 1. Gout. 2. Hypertension. 3. Hyperlipidemia. 4. Neuropathy. DISCHARGE MEDICATION REGIMEN: 1. Cefpodoxime 200 mg by mouth 2 times daily. 2. Loperamide 2 mg by mouth every 4 hours as needed for diarrhea. 3. Prednisone 40 mg by mouth daily. 4. Protonix 40 mg by mouth daily. 5. Amlodipine 2.5 mg by mouth 2 times daily. 6. Gabapentin 300 mg by mouth 2 times daily. 7. Lisinopril 40 mg by mouth daily. 8. Atorvastatin 40 mg by mouth nightly. 9. Colchicine 0.6 mg by mouth 2 times daily. 10. Prednisone 5 mg by mouth 2 times daily, to resume after prednisone burst. 11. Allopurinol 100 mg by mouth daily. LABS AND DIAGNOSTICS: Chest x-ray, impression: Left upper lobe pneumonia. HPI AND HOSPITAL SUMMARY: Please see the full history and physical by Alison Infante NP, for full details. Briefly, Mr. Nino is a 70-year-old male with a past medical history as above who presented to the hospital with fevers, cough, and leukocytosis, which was noted on outpatient labs. He was referred to the hospital by his PCP office. He had a bandemia on his CBC as well. The patient has elevated procalcitonin on admission and a fever as well. He was started on IV antibiotics as well as prednisone for severe community acquired pneumonia. His urine strep pneumo antigen came back positive. The patient did not require any oxygen and over the following days, the symptoms improved and his fever resolved. He still had a leukocytosis; however, this was preferably felt to be due to the steroids contributing as well. Clinically , he was continuing to improve. It was noted that the patient used to be on aspirin and Plavix and this was held earlier in July for GI procedure; however, it seemed that the plan was to possibly restart these after a week. He is not taking currently them now. We will defer to Dr. Geronimo if and when to restart the patient's aspirin and Plavix for his peripheral vascular disease. The patient will be discharged home to complete a few additional days of prednisone and to complete his oral antibiotics. He has followup with Dr. Geronimo tomorrow. Total time spent on this discharge 45 minutes. This is the summary of the hospitalization. Please see the full medical records for further details. CC: Dr. Geronimo * [id number]/CPS #: [id number] MTDD
== END 2016-08-22 11:15 | disposition home or self-care (01) | DRG 871 ==
LOC: ED 11:09 → MEDTELE 17:56 → MED 08-21 19:40
PROVIDERS: ADMIT Hospitalist; ATTEND Hospitalist
DX: A41.9 Sepsis, unspecified organism (principal); J13 Pneumonia due to Streptococcus pneumoniae; E87.1 Hypo-osmolality and hyponatremia; I10 Essential (primary) hypertension; F10.10 Alcohol abuse, uncomplicated; D50.9 Iron deficiency anemia, unspecified; M10.9 Gout, unspecified; I73.9 Peripheral vascular disease, unspecified; E78.5 Hyperlipidemia, unspecified; G62.9 Polyneuropathy, unspecified; E86.0 Dehydration; Z66 Do not resuscitate; Z87.891 Personal history of nicotine dependence; Z79.52 Long term (current) use of systemic steroids; Z79.899 Other long term (current) drug therapy
CPT/HCPCS: 36415; 71020; 80048; 80053; 80320; 81003; 81015; 82272; 83605; 84145; 84550; 85025; 85060; 85610; 85730; 86140; 87040; 87070; 87205; 87493; 87502; 87899; 94760; 99283; A9270-GY; G0480; J0456; J0696; J1644; J2543; J2930; J3370; J7512

== ENCOUNTER 2019-09-21 08:22 | Inpatient (IN) | payer MEDICARE, BC ==
--- OUTSIDE RECORDS SUMMARY | 2019-09-21 08:31 | XMS REPORT ---
:1945 Author Organization [facility] Care Team Providers Name Role Phone Unavailable Unavailable Unavailable Problems Condition Condition Condition Status Onset Resolution Last Treating Comments Name Details Category Date Date Treatment Clinician Date Peripheral Peripheral Diagnosis Active [facility], disease, [id number] unspecified unspecified Allergies, Adverse Reactions, Alerts Allergy Allergy Status Severity Reaction(s) Onset Inactive Treating Comments Name Type Date Date Clinician Unknown None Active Unknown None Unknown No Known Allergies For This Patient Medications Ordered Filled Start Stop Current Ordering Indication Dosage Frequency Signature Comments Components Medication Medication Date Date Medication? Clinician (SIG) Name Name No Known No Known No None None None Medications Medications For This For This Patient Patient Procedures This patient has no known procedures. Results This patient has no known results.
--- OUTSIDE RECORDS SUMMARY | 2019-09-21 08:31 | XMS REPORT ---
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 16 [facility] ulcer of ulcer of [id number] other part other part of right of right foot with foot with fat layer fat layer exposed exposed 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 -16 [facility] ulcer of ulcer of [id number] other part other part of right of right foot foot limited to limited to breakdown breakdown of skin of skin Essential Essential Diagnosis Active Sasha (primary) (primary) 08-21 [facility] hypertensio hypertensio [id number] n n Gout, Gout, Diagnosis Active Sasha unspecified unspecified 08-21 [facility] [id number] Low back Low back Diagnosis Active Sasha pain pain In[facility] [id number] Gastro-esop Gastro-esop Diagnosis Active Sasha hageal hageal [facility] reflux reflux [id number] disease disease without without esophagitis esophagitis Hyperlipide Hyperlipide Diagnosis Active Sasha austin, austin, Ingra[facility] unspecified unspecified [id number] Alcohol Alcohol Diagnosis Active Sasha abuse, abuse, [facility] uncomplicat uncomplicat [id number] ed ed buttermaker buttermaker Diagnosis Active Sasha (current) (current) [facility] use of use of [id number] anticoagula anticoagula nts nts buttermaker buttermaker Diagnosis Active Sasha (current) (current) Ingrahm use of use of [id number] aspirin aspirin buttermaker buttermaker Diagnosis Active Sasha (current) (current) Ingrahm use of use of [id number] opiate opiate analgesic analgesic Personal Personal Diagnosis Active Sasha history of history of [facility] nicotine nicotine [id number] dependence dependence Pain frequent Pain Mgmt Active 2019-0 Jennifer pain -16 (Manuel) 10:00: Sanchez [id number] Cardio edema Cardiovasc Active 2019-0 Jennifer ular -16 (Manuel) 10:00: Sanchez [id number] Respiratory dyspnea Respirator Active 2019-0 Jennifer present y - (Manuel) 10:00: Sanchez [id number] Endo/Lorne anti-coagul Endo/Lorne Active 2019-0 Jennifer ation -16 (Manuel) therapy 10:00: Sanchez [id number] Integument surgical Integument Active 2019-0 Jennifer wound -16 (Manuel) present 10:00: Sanchez [id number] Integument skin Integument Active 2019-0 Jennifer integrity -16 (Manuel) risk 10:00: Sanchez [id number] Nutrition nutritional Nutrition Active 2019-0 Jennifer restriction -16 (Manuel) s 10:00: Sanchez [id number] Elimination urinary Eliminatio Resolve 2019-0 2019-09-09 Jennifer incontinenc n d -16 11:20:00 (Manuel) e 10:00: Sanchez [id number] Neuro confusion Neuro/Emot Active 2020-0 Jennifer present ion -16 (Manuel) 10:00: Sanchez [id number] Activity ADL Activity Active 2019-0 Jennifer assistance -16 (Manuel) required 10:00: Sanchez [id number] Activity self-care Activity Active 2020-0 Jennifer deficit -16 (Manuel) 10:00: Sanchez [id number] Safety fall risk Safety Active 2020-0 Jennifer factor -16 (Manuel) present 10:00: Sanchez [id number] Safety risk for Safety Active 2020-0 Jennifer hospitaliza -16 (Manuel) tion 10:00: Sanchez [id number] Safety can be left Safety Active 2020-0 Jennifer alone for -16 (Manuel) only short 10:00: Sanchez periods [id number] Medication oral med Meds Active 2020-0 Jennifer assistance 16 (Manuel) required 10:00: Sanchez [id number] Musculoskel transfer Musculoske Active 2020-0 Jennifer etal assistance letal 16 (Manuel) required 10:00: Sanchez [id number] Musculoskel requires Musculoske Active 2020-0 Jennifer etal human letal 16 (Manuel) assist to 10:00: Sanchez leave home [id number] Elimination urinary Eliminatio Active 2020-0 Marg[place] urgency n 24 Cheryle 14:30: [facility] [id number] Allergies, Adverse Reactions, Alerts Allergy Allergy Status Severity Reaction(s) Onset Inactive Treating Comments Name Type Date Date Clinician Unknown None Active Unknown None Unknown No Known Allergies For This Patient Medications Ordered Filled Start Stop Current Ordering Indication Dosage Frequency Signature Comments Components Medication Medication Date Date Medication? Clinician (SIG) Name Name oxyCODONE 5 oxyCODONE 5 2019- Yes Fernando Unknown Unknown mg tablet mg tablet 09-05 Kristin WOOD allopurinol allopurinol 0 Yes [place] Unknown Unknown 100 mg 100 mg 16 DO,Vivek tablet tablet amLODIPine amLODIPine 2019-0 Yes Fernando Unknown Unknown 2.5 mg 2.5 mg 09-05 MDFoster tablet tablet Aspirin Low Aspirin Low 2019-0 Yes [place] Unknown Unknown Dose 81 mg Dose 81 mg 16 DO,Vivek tablet,hao tablet,hao yed release yed release atorvastati atorvastati 2019-0 Yes [place] Unknown Unknown n 40 mg n 40 mg -16 DO,Vivek tablet tablet gabapentin gabapentin 2019-0 Yes [place] Unknown Unknown 300 mg 300 mg -16 DO,Vivek capsule capsule latanoprost latanoprost 2019-0 Yes Fernando Unknown Unknown 0.005 % eye 0.005 % eye 16 Kristin WOOD drops drops lisinopril lisinopril 2019-0 Yes [place] Unknown Unknown 40 mg 40 mg -16 DO,Vivek tablet tablet Protonix 40 Protonix 40 2020-0 Yes [place] Unknown Unknown mg mg -16 DO,Vivek tablet,hao tablet,hao yed release yed release Vitamin Vitamin No Fernando 1 tab Unknown B-12 1,000 B-12 1,000 Kristin WOOD mcg tablet mcg tablet collagenase collagenase 2019-0 Yes [place] Unknown Unknown -16 DO,Vivek multivitami multivitami 2019-0 Yes [place] Unknown Unknown n capsule n capsule 16 DO,Vivek Xarelto 2.5 Xarelto 2.5 2019- Yes [place]ak Unknown Unknown mg tablet mg tablet 16 DO,Vivek Acetaminoph Acetaminoph Yes [place] Unknown Unknown en Extra en Extra - DO,Vivke Strength Strength 500 mg 500 mg tablet tablet oxyCODONE 5 oxyCODONE 5 Yes Fernando Unknown Unknown mg tablet mg tablet 09-10 Kristin WOOD Vital Signs Vital Name Observation Time Observation Value Comments SYSTOLIC mm[Hg] 2019-09-18 18:10:07 132 mm[Hg] mm[Hg] Method: Sit SYSTOLIC mm[Hg] 2019-09-08 18:09:57 132 mm[Hg] mm[Hg] Method: Stand SYSTOLIC mm[Hg] 2019-09-09 18:09:58 122 mm[Hg] mm[Hg] Method: Lie DIASTOLIC mm[Hg] 2019-09-18 18:10:07 78 mm[Hg] mm[Hg] Method: Sit DIASTOLIC mm[Hg] 2019-09-08 18:09:57 64 mm[Hg] mm[Hg] Method: Stand DIASTOLIC mm[Hg] 2019-09-09 18:09:58 64 mm[Hg] mm[Hg] Method: Lie PULSE 2019-09-18 18:10:07 82 /min /min RESP RATE 2019-09-18 18:10:07 18 /min /min TEMP 2019-09-18 18:10:07 98.2 [degF] Procedures This patient has no known procedures. Results This patient has no known results.
--- OUTSIDE RECORDS SUMMARY | 2019-09-21 08:31 | XMS REPORT ---
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 Ingrahm ulcer of ulcer of [id number] other part other part of right of right foot with foot with fat layer fat layer exposed exposed 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 -16 Ingrahm ulcer of ulcer of [id number] other part other part of right of right foot foot limited to limited to breakdown breakdown of skin of skin Essential Essential Diagnosis Active Sasha (primary) (primary) 08-21 Ingrahm hypertensio hypertensio [id number] n n Gout, Gout, Diagnosis Active Sasha unspecified unspecified 08-21 Ingrahm [id number] Low back Low back Diagnosis Active Sasha pain pain Ingrahm [id number] Gastro-esop Gastro-esop Diagnosis Active Sasha hageal hageal Ingrahm reflux reflux [id number] disease disease without without esophagitis esophagitis Hyperlipide Hyperlipide Diagnosis Active Sasha austin, austin, Ingrahm unspecified unspecified [id number] Alcohol Alcohol Diagnosis Active Sasha abuse, abuse, Ingrahm uncomplicat uncomplicat [id number] 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 Sasha (current) (current) Ingrahm use of use of [id number] anticoagula anticoagula nts nts terminal gauger terminal gauger Diagnosis Active Sasha (current) (current) Ingrahm use of use of [id number] aspirin aspirin terminal gauger terminal gauger Diagnosis Active Sasha (current) (current) Ingrahm use of use of [id number] opiate opiate analgesic analgesic Personal Personal Diagnosis Active Sasha history of history of Ingrahm nicotine nicotine 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 dependence dependence Pain frequent Pain Mgmt Active 2019-0 Jennifer pain -16 (Manuel) 10:00: Sanchez [id number] Cardio edema Cardiovasc Active 2019-0 Jennifer ular -16 (Manuel) 10:00: Sanchez [id number] Respiratory dyspnea Respirator Active 2019-0 Jennifer present y - (Manuel) 10:00: Sanchez [id number] Endo/Lorne anti-coagul Endo/Lorne Active 2019-0 Jennifer ation -16 (Manuel) therapy 10:00: Sanchez [id number] Integument surgical Integument Active 2019-0 Jennifer wound -16 (Manuel) present 10:00: Sanchez [id number] Integument skin Integument Active 2019-0 Jennifer integrity -16 (Manuel) risk 10:00: Sanchez [id number] Nutrition nutritional Nutrition Active 2019-0 Jennifer restriction -16 (Manuel) s 10:00: Sanchez [id number] Elimination urinary Eliminatio Resolve 2019-0 2019-09-09 Jennifer incontinenc n d -16 11:20:00 (Manuel) e 10:00: Sanchez [id number] Neuro confusion Neuro/Emot Active 2020-0 Jennifer present ion -16 (Manuel) 10:00: Sanchez [id number] Activity ADL Activity Active 2019-0 Jennifer assistance -16 (Manuel) required 10:00: Sanchez [id number] Activity self-care Activity Active 2020-0 Jennifer deficit -16 (Manuel) 10:00: Sanchez [id number] Safety fall risk Safety Active 2020-0 Jennifer factor -16 (Manuel) present 10:00: Sanchez [id number] Safety risk for Safety Active 2020-0 Jennifer hospitaliza -16 (Manuel) tion 10:00: Sanchez [id number] Safety can be left Safety Active 2020-0 Jennifer alone for 1-16 (Manuel) only short 10:00: Sanhcez [id number] Medication oral med Meds Active 2020-0 Jennifer assistance 16 (Manuel) required 10:00: [id number] Musculoskel transfer Musculoske Active 2020-0 Jennifer etal assistance letal 16 (Manuel) required 10:00: Sanchez [id number] Musculoskel requires Musculoske Active 2020-0 Jennifer etal human letal 09-05 (Manuel) assist to 10:00: Sanchez leave home [id number] Allergies, Adverse Reactions, Alerts Allergy Allergy Status Severity Reaction(s) Onset Inactive Treating Comments Name Type Date Date Clinician Unknown None Active Unknown None Unknown No Known Allergies For This Patient Medications Ordered Filled Start Stop Current Ordering Indication Dosage Frequency Signature Comments Components Medication Medication Date Date Medication? Clinician (SIG) Name Name oxyCODONE 5 oxyCODONE 5 2020-0 Yes Fernando Unknown Unknown mg tablet mg tablet 09-05 MDFoster allopurinol allopurinol 2019-0 Yes Sopchak Unknown Unknown 100 mg 100 mg 16 DO,Vivek tablet tablet amLODIPine amLODIPine 2019-0 Yes Fernando Unknown Unknown 2.5 mg 2.5 mg 09-05 ,Foster tablet tablet Aspirin Low Aspirin Low 2020-0 Yes Sopchak Unknown Unknown Dose 81 mg Dose 81 mg 16 DO,Vivek tablet,hao tablet,hao yed release yed release atorvastati atorvastati 2019-0 Yes Sopchak Unknown Unknown n 40 mg n 40 mg 16 DO,Vivek tablet tablet gabapentin gabapentin 2019-0 Yes Sopchak Unknown Unknown 300 mg 300 mg 16 DO,Vivek capsule capsule latanoprost latanoprost 2019-0 Yes Fernando Unknown Unknown 0.005 % eye 0.005 % eye 16 ,Foster drops drops lisinopril lisinopril 2020-0 Yes Sopchak Unknown Unknown 40 mg 40 mg -16 DO,Vivek tablet tablet Protonix 40 Protonix 40 2020-0 Yes Sopchak Unknown Unknown mg mg -16 DO,Vivek tablet,hao tablet,hao yed release yed release Vitamin Vitamin No Fernando 1 tab Unknown B-12 1,000 B-12 1,000 ,Foster mcg tablet mcg tablet collagenase collagenase 2019-0 Yes Sopchak Unknown Unknown 09-05 DO,Vivek multivitami multivitami 2019- Yes Sopchak Unknown Unknown n capsule n capsule 09-05 DO,Vivek Xarelto 2.5 Xarelto 2.5 2019- Yes Sopchak Unknown Unknown mg tablet mg tablet 09-05 DO,Vivek Acetaminoph Acetaminoph Yes Sopchak Unknown Unknown en Extra en Extra 09-05 DO,Vivek Strength Strength 500 mg 500 mg tablet tablet oxyCODONE 5 oxyCODONE 5 Yes Fernando Unknown Unknown mg tablet mg tablet 09-10 Kristin WOOD Vital Signs Vital Name Observation Time Observation Value Comments SYSTOLIC mm[Hg] 2019-09-11 18:10:00 130 mm[Hg] mm[Hg] Method: Sit SYSTOLIC mm[Hg] 2019-09-08 18:09:57 132 mm[Hg] mm[Hg] Method: Stand SYSTOLIC mm[Hg] 2019-09-09 18:09:58 122 mm[Hg] mm[Hg] Method: Lie DIASTOLIC mm[Hg] 2019-09-11 18:10:00 60 mm[Hg] mm[Hg] Method: Sit DIASTOLIC mm[Hg] 2019-09-08 18:09:57 64 mm[Hg] mm[Hg] Method: Stand DIASTOLIC mm[Hg] 2019-09-09 18:09:58 64 mm[Hg] mm[Hg] Method: Lie PULSE 2019-09-11 18:10:00 83 /min /min RESP RATE 2019-09-09 18:09:58 16 /min /min TEMP 2019-09-11 18:10:00 98.9 [degF] Procedures This patient has no known procedures. Results This patient has no known results.
--- OUTSIDE RECORDS SUMMARY | 2019-09-21 08:31 | XMS REPORT | Summary of Care ---
:1945 Author Organization [facility] Address [address] [place] [id number] Care Team Providers Name Role Phone Vivek Geronimo DO Primary Care Provider Reason for Visit Reason Comments Post-op Encounter Details Date Type Department Care Team Description 09/20/2019 Office Visit [facility] Kristin Fernando, PAD (peripheral artery Associates MD ROSI disease) (Primary Dx) Department of Surgery, [address] [place] [address] Division of Vascular [address], [place] [facility] [id number] [facility] [phone] [place] [address] (Fax) [phone] Allergies No Known Allergiesdocumented as of this encounter (statuses as of 09/20/2019) Medications Medication Sig Dispensed Refills Start Date End Date Status atorvastatin (LIPITOR) Take 40 mg by 0 Active 40 MG tablet mouth daily lisinopril Take 40 mg by 0 Active (PRINIVIL,ZESTRIL) 40 MG mouth daily tablet amlodipine (NORVASC) 2.5 Take 2.5 mg by 0 Active MG tablet mouth Two Times Daily aspirin 81 MG tablet Take 81 mg by 0 Active mouth every evening pantoprazole (PROTONIX) Take 20 mg by 0 Active 20 MG tablet mouth daily allopurinol (ZYLOPRIM) Take 300 mg by 0 Active 300 MG tablet mouth daily as directed. gabapentin (NEURONTIN) Take 300 mg by 0 Active 300 MG capsule mouth Three times daily latanoprost (XALATAN) Place 1 drop 0 08/07/2017 Active 0.005 % ophthalmic into both eyes solution nightly acetaminophen (TYLENOL) Take 500 mg by 0 Active 500 MG tablet mouth every 6 (six) hours as needed for Pain Chlorthalidone 25 MG Take 25 mg by 0 08/18/2019 Active Oral Tablet (HYGROTON) mouth daily PreserVision AREDS 2 Take 1 capsule 0 Active Oral Capsule by mouth daily Tab-A-Marcelo/Beta Carotene Take 1 tablet by 30 tablet 0 09/04/2019 Active Oral Tablet mouth daily Additional information Patient not taking. Reported on 09/20/2019 9:01 AM Rivaroxaban 2.5 MG Oral Take 1 tablet by 60 tablet 5 09/03/2019 Active Tablet (XARELTO) mouth Two Times Daily oxyCODONE HCl 5 MG Oral Take 1 tablet by 44 tablet 0 09/10/20192019 Active Tablet (ROXICODONE) mouth every 6 (six) hours as needed for Pain, Max Daily Dose: 20 mg cloNIDine 0.1 MG/24HR 0 10/03/2018 Active Transdermal Patch Weekly (CATAPRES) documented as of this encounter (statuses as of 09/20/2019) Active Problems Problem Noted Date Alcohol abuse 08/28/2019 Overview: 6 beers per day PAD (peripheral artery disease) 07/29/2019 Atherosclerotic PVD with ulceration 10/24/2016 PVD (peripheral vascular disease) 01/30/2015 Current smoker 10/29/2014 Hyperlipidemia 10/29/2014 Hypertension 10/29/2014 Critical ischemia of lower extremity 10/29/2014 Ischemic ulcer 10/27/2014 documented as of this encounter (statuses as of 09/20/2019) Social History Tobacco Use Types Packs/Day Years Used Date Former Smoker Cigarettes 1 50 Quit: 02/28/2015 Smokeless Tobacco: Never Used Alcohol Use Drinks/Week oz/Week Comments Yes 42 Standard drinks or equivalent 42.0 6 beers daily Sex Assigned at Date Recorded Not on file Job Start Date Occupation Industry Not on file Not on file Not on file Travel History Travel Start Travel End No recent travel history available. documented as of this encounter Last Filed Vital Signs Vital Sign Reading Time Taken Comments Blood Pressure 123/57 09/20/2019 8:59 AM EST Pulse 110 09/20/2019 8:59 AM EST Temperature 36.1 09/20/2019 8:59 AM EST C (97 F) Respiratory Rate 18 09/20/2019 8:59 AM EST Oxygen Saturation 97% 09/20/2019 8:59 AM EST Inhaled Oxygen Concentration - - Weight 78 kg (172 lb) 09/20/2019 8:59 AM EST Height 172.7 cm (5' 8") 09/20/2019 8:59 AM EST Body Mass Index 26.15 09/20/2019 8:59 AM EST documented in this encounter Progress Notes Kristin Fernando MD - 09/20/2019 8:45 AM EST Subjective: Patient ID: Micah Nino is a 73 y.o. male whom I have followed for quite some time back in 2015. He has had severe peripheral vascular disease bilaterally for some time. He has had multiple procedures all revealed in my latest note. Surgically, he did have a right common femoral endarterectomy, bovine pericardial patch, and then a femoral-femoral bypass graft right to left with an 8 mm ringedPropaten graft and at that time, I did an antegrade procedure through the fem-fem bypass graft. I was able to cross an occlusion of the below-knee popliteal, TP trunk total occlusion and treat tibial vessels at that time. Since then, he had done fairly well. He did have a muscle flap after that procedure over that left common femoral. He has had progressive ulceration of both legs. The right foot has been increasingly ischemic. I did an angiogram, I did an angioplasty July 29 of the iliac artery via brachial approach, and did angiography. At that time, I tried to cross total occlusion of his popliteal, but I was unable to re-enter, so we decided to proceed with surgery. He has suitable below-knee popliteal artery bypass target with least 2 tibial vessel runoff, so we had him cleared for surgery and he is brought in for the bypass. HOSPITAL COURSE: The patient was admitted on 08/28/2019 for Atherosclerotic PVD with ulceration. He was taken to the OR and underwent a right femoral to popliteal artery bypass with Propaten graft. He noted to have some diminished pulses to RLE POD 2 and an arterial ultrasound was obtained which demonstrated no arterial flow in distal PT suggesting occlusion. He was started on a Heparin infusion eturned to the OR on 08/31/2019 and underwent a thrombectomy of RLE fem pop bypass X 2, aortogram and right external iliac artery angioplasty/stent and RLE angiogramshowing popliteal artery occlusion distal to distal anastomosis. On 09/02/2019 there was concern that the bypass was down and a repeat RLE arterial duplex indicated occlusion. A CTA obtained showed complete occlusion of the right femoral popliteal bypass graft, with official read results listed below. After reviewing images and results the plan for vein mapping to BLE was obtained. The patient was restarted on Xarelto and plan for discharge to home with follow up in [facility] with Dr. Fernando to discuss further intervention that could be offered. Patient remained hemodynamically stable and neurologically intact. He ambulated safely and tolerateda low fat low cholesterol diet, and his pain was well controlled. CTA 09/05/2019: VASCULAR FINDINGS: Dense calcified plaque is seen along the course of the infrarenal abdominal aorta. There is partially visualized focal occlusion at the origin of the left common iliac artery, unchanged from the 05/29/2019 CT study. There is moderate narrowing of the proximal right common iliac artery. A stent graft isseen at the right iliac bifurcation, extending along the proximal aspect of the internal iliac artery and appears patent. Another stent graft in the proximal external iliac artery and appears patent. The right internal and external iliac arteries are grossly patent. There is complete occlusion of the right femoropopliteal bypass graft, beginning at the anastomosis with the femorofemoral graft, extending to the distal popliteal anastomosis. There is high-grade narrowing at the common femoral bifurcation. There is intermittent occlusion of the superficial and deep femoral arteries throughout their respective courses. Dense calcification is seen at the tibioperoneal trunk and along the courses of the anterior tibial, posterior tibial, and peroneal arteries, throughout their respectivecourses. There is likely tandem stenosis of all 3 vessels throughout the calf. The vessels do appearpatent at the level of the ankle. DATE OF PROCEDURE/OPERATION: 08/28/2019 SURGEON: Kristin Fernando MD PREOPERATIVE DIAGNOSES: Right leg ischemia with ulceration, severe peripheral vascular disease. POSTOPERATIVE DIAGNOSES: Right leg ischemia with ulceration, severe peripheral vascular disease. PROCEDURE: Right common femoral artery graft to below-knee popliteal artery bypass with 6 mm ringed Propaten graft. DATE OF PROCEDURE/OPERATION: 08/31/2019 SURGEON: dL Campos MD PREOPERATIVE DIAGNOSIS: Acute graft thrombosis, right lower extremity, acute limb ischemia. POSTOPERATIVE DIAGNOSIS: Acute graft thrombosis, right lower extremity, acute limb ischemia. NATURE OF OPERATION: 1. Exposure and control of right femoral-popliteal bypass at both the common femoral artery anastomosis, as well as the below-knee popliteal artery segment. 2. Thromboembolectomy of the femoral-popliteal bypass x2. 3. Diagnostic angiogram right lower extremity. 4. Exposure and control of the right superficial femoral artery. 5. Aortogram and right lower extremity angiogram with angioplasty stenting of the right external iliac artery. Additional VASCULAR PROCEDURAL HISTORY: 10-24-16Left common femoral artery exposure, femoral and iliac angiography and a failed attempt tocross left iliac artery total occlusion retrograde; left brachial access under ultrasound guidance, aortic pelvic angiography, failed attempt to cross left iliac artery occlusion in antegrade fashion, completion angiography. (Fernando) [id number]:(Fernando) 1. Right common femoral artery endarterectomy with bovine pericardial patch. 2. Femoral-femoral bypass graft, right to left, using an 8 mm ringed Propaten graft. 3. Left lower extremity angiography via antegrade puncture through the fem-fem bypass graft. 4. Cross total occlusion of the below-knee popliteal and TP trunk total occlusion. 5. Balloon angioplasty of the anterior tibial artery with a 2.5 x 15 mm balloon , balloon angioplastyof the TP trunk and popliteal with a 3 mm x 15 cm balloon, balloon angioplasty of the SFA and above-knee popliteal with a 4 mm x 150 mm balloon, and then finally, balloon angioplasty of the superficialfemoral artery with a 5 mm x 10 cm balloon, . 6. Angioplasty of the popliteal TP trunk previously occluded area, 5 mm x 10 cm in length, drug-coated balloon Lutonix 7. Completion angiography. 10-28-16 Left muscle only rectus femoris flap to cover left groin anastomosis (Stefano) 02-02-15 Left common femoral artery and superficial femoral artery endarterectomy and patch angioplasty with a bovine pericardial patch, left profunda femoral endarterectomy and bovine pericardial patch, left lower extremity angiography cross focal total occlusion of the mid SFA, then crossed the totalocclusion of the popliteal artery, 4 cm and tibioperoneal trunk. Balloon angioplasty first with 3 mm x 10 cm balloon of the tibioperoneal trunk, popliteal and SFA, balloon angioplasty of the popliteal and tibioperoneal trunk with a 4 mm x 100 mm drug-coated Lutonix balloon, balloon angioplastywith a 5 mm x 8 cm balloon of the length of the SFA, focal stenting with a 6 mm x 4 cm LifeStent of the recalcitrant greater than 50% residual stenosis at the mid SFA post balloon dilatation, with a 5 mm x 8 cm balloon. Balloon angioplasty of the distal anterior tibial dorsalis pedis artery with a2 mm x 4 cm balloon and subsequent balloon angioplasty of the popliteal artery with a 5 mm x 4 cm balloon. Completion angiography of the left lower extremity and debridement of the left lateral foot wound down to fascia and wound VAC application, with the wound measuring 3 x 3 cm x 0.5 cm. He follows up today. He has a lot of right foot rest pain and 2 ulcers (Right 4th toe and lat foot 5th met head). Chief Complaint: JUAN Carver has a past medical history of Alcohol abuse (08/28/2019), Blood transfusion without reported diagnosis, Cataract, GERD (gastroesophageal reflux disease), Gout, Hyperlipidemia, Hypertension, Low back pain, Nonhealing skin ulcer, PAD (peripheral artery disease), and Tobacco use disorder. Micah has PVD (peripheral vascular disease); Atherosclerotic PVD with ulceration; Current smoker; Hyperlipidemia; Hypertension; Ischemic ulcer; Critical ischemia of lower extremity; PAD (peripheral artery disease); and Alcohol abuse on their problem list. Micah has a past surgical history that includes Knee surgery (Left); Femoral endarterectomy (Left,01/30/15); Aortic-Illiac Endarterectomy (N/A, 01/30/2015); Colonoscopy; pr vein bypass graft,fem-tibial (Left, 10/24/2016); pr thromboendartectmy femoral common (Bilateral, 10/28/2016); pr bypass graft othr, fem-fem (N/A, 10/28/2016); pr revascularization iliac artery angiop 1st vsl ( Bilateral, 07/29/2019); pr revsc opn/prq iliac art w/stnt plmt & angioplsty ( N/A, 07/29/2019); Cataract extraction (Bilateral); pr vein bypass graft,fem-pop ( Right, 08/28/2019); and pr remv art clot iliac-pop,leg incis (Right,08/30/2019). His family history is not on file. Micah reports that he quit smoking about 4 years ago. His smoking use included cigarettes. He has a 50.00 pack-year smoking history. He has never used smokeless tobacco. He reports current alcohol use of about 42.0 standard drinks of alcohol per week. He reports that he does not use drugs. Micah has a current medication list which includes the following prescription(s ): acetaminophen, allopurinol, amlodipine, aspirin, atorvastatin, chlorthalidone , clonidine, gabapentin, latanoprost, lisinopril, oxycodone, pantoprazole, preservision areds 2, rivaroxaban, and multivitamin. Current Outpatient Medications on File Prior to Visit Medication Sig Dispense Refill acetaminophen (TYLENOL) 500 MG tablet Take 500 mg by mouth every 6 (six) hours as needed forPain allopurinol (ZYLOPRIM) 300 MG tablet Take 300 mg by mouth daily as directed. amlodipine (NORVASC) 2.5 MG tablet Take 2.5 mg by mouth Two Times Daily aspirin 81 MG tablet Take 81 mg by mouth every evening atorvastatin (LIPITOR) 40 MG tablet Take 40 mg by mouth daily Chlorthalidone 25 MG Oral Tablet (HYGROTON) Take 25 mg by mouth daily cloNIDine 0.1 MG/24HR Transdermal Patch Weekly (CATAPRES) gabapentin (NEURONTIN) 300 MG capsule Take 300 mg by mouth Three times daily latanoprost (XALATAN) 0.005 % ophthalmic solution Place 1 drop into both eyes nightly lisinopril (PRINIVIL,ZESTRIL) 40 MG tablet Take 40 mg by mouth daily oxyCODONE HCl 5 MG Oral Tablet (ROXICODONE) Take 1 tablet by mouth every 6 (six) hours as needed for Pain, Max Daily Dose: 20 mg 44 tablet 0 pantoprazole (PROTONIX) 20 MG tablet Take 20 mg by mouth daily PreserVision AREDS 2 Oral Capsule Take 1 capsule by mouth daily Rivaroxaban 2.5 MG Oral Tablet (XARELTO) Take 1 tablet by mouth Two Times Daily 60 tablet 5 Tab-A-Marcelo/Beta Carotene Oral Tablet Take 1 tablet by mouth daily ( Patient not taking: Reported on 09/20/2019) 30 tablet No current facility-administered medications on file prior to visit. Micah has No Known Allergies. Review of Systems All other systems reviewed and are negative. Objective: Physical Exam Constitutional: He is oriented to person, place, and time. He appears well- developed and well-nourished. HENT: Head: Normocephalic. Eyes: Pupils are equal, round, and reactive to light. Neck: Normal range of motion. Cardiovascular: Normal rate. Right AT, peroneal faint monophasic. PT monophasic Left Peroneal and AT biphasic, PT monophasic Pulmonary/Chest: Effort normal. Abdominal: Soft. Musculoskeletal: Normal range of motion. Neurological: He is alert and oriented to person, place, and time. Skin: Skin is warm. Left 4th toe ulcer, lat met head area- dry, no redness, slight blister over heel Right rubor, 4th toe macerated and ulcerated, tender, lat foot 5th met head ulcer as well- tender. Heel with DTI. Psychiatric: He has a normal mood and affect. His behavior is normal. Judgment and thought content normal. Nursing note and vitals reviewed. Lab Review: [facility] --- FINAL REPORT --- Name: MICAH NINO : 1945 Visit: [id number] Date: 03 Sep 2019 TYPE OF TEST: Peripheral Venous Testing REASON FOR TEST Claudication Right Leg:- Deep venous thrombosis: No Superficial venous thrombosis: No Deep venous insufficiency: Not examined Superficial venous insufficiency: Not examined Left Leg:- Deep venous thrombosis: No Superficial venous thrombosis: No Deep venous insufficiency: Not examined Superficial venous insufficiency: Not examined Vein Mapping: Diam. Depth (mm) Right Great Saphenous Vein: High Thigh: Mid Thigh: 3.5 Low Thigh: 5.9 Knee: 5.0 High Calf: Low Calf: 5.3 Ankle: 4.0 Right Small Saphenous Vein: SPJ: Mid Calf: 3.3 Ankle: Giacomini: Accessory saph.: Pena mount loader: Marroquin mount loader: Left Great Saphenous Vein: High Thigh: 5.4 Mid Thigh: 3.2 Low Thigh: 3.7 Knee: 3.0 High Calf: 2.4 Low Calf: 3.5 Ankle: 4.1 Left Small Saphenous Vein: SPJ: Mid Calf: 2.9 Ankle: Giacomini: Accessory saph.: Pena mount loader: Marroquin mount loader: INTERPRETATION/FINDINGS Duplex interrogation of the bilateral lower extremity deep venous system was performed. Normal compressibility, augmentation and phasicity was demonstrated within the left common femoral and bilateral popliteal veins. The visualized portions of the femoral, posterior tibial and peroneal veins show normal compressibility. The right common femoral, proximal femoral, and proximal posterior tibial and peroneal veins were not imaged due to overlying bandage. Impression: No evidence of lower extremity deep venous thrombosis bilaterally. ADDITIONAL COMMENTS Bilateral vein mapping measurements enclosed. I have personally reviewed the data relevant to the interpretation of this study. TECHNOLOGIST: Roslyn Parsons PHYSICIAN: Electronically signed by: Keyur uMrphy 09/03/2019 05:40 PM Assessment: 1. PAD (peripheral artery disease) Right foot ischemia and CTLI. Left foot with severe PAD as well with small dry ulcer. More stable. Plan: His has severe PAD bilaterally. His Right foot has CLTI and is not adequately perfused to heal his wounds. He appears to have a tibial vessel patent (PT) however, these vessels are all very calcified. Additionally, a vein bypass would need to come off the FFBG or wilkins of the PTFE graft which is thrombosed. I had a long discussion with his and the patient as well while he was in the hospital. He is at significant risk of limb loss. I did explain to them that his extensive calcific burden may make a distal bypass impossible. He really wants to have another attempt at saving his foot. His rest pain is progressive and tissueloss worse. He needs something done soon. I will try to schedule this in next few weeks. Total time spent during this encounter including review of record and available studies, obtaining history and performing the physical exam with recommendations was 45 minutes. documented in this encounter Plan of Treatment Health Maintenance Due Date Last Done Comments Hepatitis C Screening (B. 1945 [id number]) MMR Vaccines (1 of 1 - Standard 10/23/1946 series) Varicella Vaccines (1 of 2 - 10/23/1946 2-dose childhood series) DTaP,Tdap,and Td Vaccines (1 - 1953 Tdap) Colon Cancer Screening 10 yrs 1996 Zoster Vaccines (1 of 2) 1996 Pneumococcal Vaccine: 65+ Years (1 10/23/2011 of 2 - PCV13) Influenza Vaccine 05/21/2019 HIB Vaccines Aged Out No longer eligible based on patient's age to complete this topic Hepatitis A Vaccines Aged Out No longer eligible based on patient's age to complete this topic Hepatitis B Vaccines Aged Out No longer eligible based on patient's age to complete this topic IPV Vaccines Aged Out No longer eligible based on patient's age to complete this topic Pneumococcal Vaccine: Pediatrics Aged Out No longer eligible based on (0 to 5 Years) and At-Risk patient's age to complete this Patients (6 to 64 Years) topic documented as of this encounter Implants Implanted Type Area Motorized Squad Lieutenant Device Shelf Model / Identifier Expiration Serial / Date Lot Patch Vasc Xenosure [id number] - [id number] Left: [facility] 07/20/2017 [id number] / Implanted: Qty: 1 on 01/30/2015 by Kristin Fernando MD at OR [facility] Arterial VASCULAR / [id number] Stent- Lifestent-6 X 40 X130 - [id number] Left: [facility] 01/30/2016 [id number] / Implanted: Qty: 1 on 01/30/2015 by Kristin Fernando MD at OR [facility] Arterial / [id number] Pledget Ptfe 9.5x4.8mm - [id number] Left: [facility] [id number] / Implanted: Qty: 1 on 01/30/2015 by Kristin Fernando MD at OR [facility] Arterial / Patch Vasc Xenosure [id number] - [id number] Right: [facility] 2021 E0.8P8 / Implanted: Qty: 1 on 10/28/2016 by Kristin Fernando MD at OR [facility] VASCULAR / [id number] Graft Vasc Propaten [id number] - [id number] Groin NATHANIELAnayaCHARLENE 05/25/2020 [id number] / Implanted: Qty: 1 on 10/28/2016 by Kristin Fernando MD at OR [facility] [id number] / Description:femoral to femoral artery graft Stent- Omnilink 8mm X 39 [id number] - [id number] Arterial [facility] 07/20/2022 [id number] / Implanted: Qty: 1 on 07/29/2019 by Kristin Fernando MD at OR [facility] [id number] / [id number] Description:iliac Graft Vasc Propaten [id number] - [id number] Right: Leg CHARLENE KLINE + 09/04/2022 [id number] / Implanted: Qty: 1 on 08/28/2019 by Kristin Fernando MD at OR [facility] [id number] / Cov Stnt - [id number] - [id number] Right: Iliac CHARLENE KLINE + [id number] / Implanted: Qty: 1 on 08/30/2019 by Ld Campos MD at OR [address] [facility] [id number] / documented as of this encounter Results Not on filedocumented in this encounter Visit Diagnoses Diagnosis PAD (peripheral artery disease) - Primary Peripheral vascular disease, unspecified documented in this encounter
--- OUTSIDE RECORDS SUMMARY | 2019-09-21 08:31 | XMS REPORT ---
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, disease, [id number] unspecified unspecified 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 09-05 Ingrahm ulcer of ulcer of [id number] other part other part of right of right foot with foot with fat layer fat layer exposed exposed 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 -16 Ingrahm ulcer of ulcer of [id number] other part other part of right of right foot foot limited to limited to breakdown breakdown of skin of skin Essential Essential Diagnosis Active Sasha (primary) (primary) 08-21 Ingrahm hypertensio hypertensio [id number] n n Gout, Gout, Diagnosis Active Sasha unspecified unspecified 08-21 Ingrahm [id number] Low back Low back Diagnosis Active Sasha pain pain Ingrahm [id number] Gastro-esop Gastro-esop Diagnosis Active Sasha hageal hageal Ingrahm reflux reflux [id number] disease disease without without esophagitis esophagitis Hyperlipide Hyperlipide Diagnosis Active Sasha austin, austin, Ingrahm unspecified unspecified [id number] Alcohol Alcohol Diagnosis Active Sasha abuse, abuse, Ingrahm uncomplicat uncomplicat [id number] 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 Sasha (current) (current) Ingrahm use of use of [id number] anticoagula anticoagula nts nts 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 Active Sasha (current) (current) Ingrahm use of use of [id number] aspirin aspirin 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 Active Sasha (current) (current) Ingrahm use of use of [id number] opiate opiate analgesic analgesic Personal Personal Diagnosis Active Sasha history of history of Ingrahm nicotine nicotine [id number] dependence dependence Pain frequent Pain Mgmt Active 2019-0 Jennifer pain -16 (Manuel) 10:00: Sanchez [id number] Cardio edema Cardiovasc Active 2019-0 Jennifer ular -16 (Manuel) 10:00: Sanchez [id number] Respiratory dyspnea Respirator Active 2019-0 Jennifer present y - (Manuel) 10:00: Sanchez [id number] Endo/Lorne anti-coagul Endo/Lorne Active 2019-0 Jennifer ation -16 (Manuel) therapy 10:00: Sanchez [id number] Integument surgical Integument Active 2019-0 Jennifer wound -16 (Manuel) present 10:00: Sanchez [id number] Integument skin Integument Active 2019-0 Jennifer integrity -16 (Manuel) risk 10:00: Sanchez [id number] Nutrition nutritional Nutrition Active 2019-0 Jennifer restriction -16 (Manuel) s 10:00: Sanchez [id number] Elimination urinary Eliminatio Resolve 2019-0 2019-09-09 Jennifer incontinenc n d -16 11:20:00 (Manuel) e 10:00: Sanchez [id number] Neuro confusion Neuro/Emot Active 2020-0 Jennifer present ion -16 (Manuel) 10:00: Sanchez [id number] Activity ADL Activity Active 2019-0 Jennifer assistance -16 (Manuel) required 10:00: Sanchez [id number] Activity self-care Activity Active 2020-0 Jennifer deficit -16 (Manuel) 10:00: Sanchez [id number] Safety fall risk Safety Active 2020-0 Jennifer factor -16 (Manuel) present 10:00: Sanchez [id number] Safety risk for Safety Active 2020-0 Jennifer hospitaliza -16 (Manuel) tion 10:00: Sanchez [id number] Safety can be left Safety Active 2020-0 Jennifer alone for 1-16 (Manuel) only short 10:00: Sanchez periods [id number] Medication oral med Meds Active 2020-0 Jennifer assistance 16 (Manuel) required 10:00: [id number] Musculoskel transfer Musculoske Active 2020-0 Jennifer etal assistance letal 16 (Manuel) required 10:00: Sanchez [id number] Musculoskel requires Musculoske Active 2020-0 Jennifer etal human letal 09-05 (Manuel) assist to 10:00: Sanchez leave home [id number] Elimination urinary Eliminatio Active Cherrise urgency n 09-16 Foster 10:50: [id number] Allergies, Adverse Reactions, Alerts Allergy Allergy Status Severity Reaction(s) Onset Inactive Treating Comments Name Type Date Date Clinician Unknown None Active Unknown None Unknown No Known Allergies For This Patient Medications Ordered Filled Start Stop Current Ordering Indication Dosage Frequency Signature Comments Components Medication Medication Date Date Medication? Clinician (SIG) Name Name oxyCODONE 5 oxyCODONE 5 Yes Fernando Unknown Unknown mg tablet mg tablet 09-05 Kristin WOOD allopurinol allopurinol Yes Sopchak Unknown Unknown 100 mg 100 mg 09-05 DO,Vivek tablet tablet amLODIPine amLODIPine 0 Yes Fernando Unknown Unknown 2.5 mg 2.5 mg 09-05 MDFoster tablet tablet Aspirin Low Aspirin Low 2019- Yes Sopchak Unknown Unknown Dose 81 mg Dose 81 mg 16 DO,Vivek tablet,hao tablet,hao yed release yed release atorvastati atorvastati Yes Sopchak Unknown Unknown n 40 mg n 40 mg 16 DO,Vivek tablet tablet gabapentin gabapentin 0 Yes Sopchak Unknown Unknown 300 mg 300 mg 16 DO,Vivek capsule capsule latanoprost latanoprost 2019-0 Yes Fernando Unknown Unknown 0.005 % eye 0.005 % eye 09-05 Kristin WOOD drops drops lisinopril lisinopril 2019-0 Yes Sopchak Unknown Unknown 40 mg 40 mg -16 DO,Vivek tablet tablet Protonix 40 Protonix 40 2019-0 Yes Sopchak Unknown Unknown mg mg -16 DO,Vivek tablet,hao tablet,hao yed release yed release Vitamin Vitamin No Fernando 1 tab Unknown B-12 1,000 B-12 1,000 Kristin WOOD mcg tablet mcg tablet collagenase collagenase 2019-0 Yes Sopchak Unknown Unknown -16 DO,Vivek multivitami multivitami 2019-0 Yes Sopchak Unknown Unknown n capsule n capsule 16 DO,Vivek Xarelto 2.5 Xarelto 2.5 2019-0 Yes Sopchak Unknown Unknown mg tablet mg tablet -16 DO,Vivek Acetaminoph Acetaminoph Yes Sopchak Unknown Unknown en Extra en Extra -16 DO,Vivek Strength Strength 500 mg 500 mg tablet tablet oxyCODONE 5 oxyCODONE 5 Yes Fernando Unknown Unknown mg tablet mg tablet 09-10 Kristin WOOD Vital Signs Vital Name Observation Time Observation Value Comments SYSTOLIC mm[Hg] 2019-09-16 18:10:05 142 mm[Hg] mm[Hg] Method: Sit SYSTOLIC mm[Hg] 2019-09-08 18:09:57 132 mm[Hg] mm[Hg] Method: Stand SYSTOLIC mm[Hg] 2019-09-09 18:09:58 122 mm[Hg] mm[Hg] Method: Lie DIASTOLIC mm[Hg] 2019-09-16 18:10:05 54 mm[Hg] mm[Hg] Method: Sit DIASTOLIC mm[Hg] 2019-09-08 18:09:57 64 mm[Hg] mm[Hg] Method: Stand DIASTOLIC mm[Hg] 2019-09-09 18:09:58 64 mm[Hg] mm[Hg] Method: Lie PULSE 2019-09-16 18:10:05 85 /min /min RESP RATE 2019-09-16 18:10:05 18 /min /min TEMP 2019-09-16 18:10:05 97.3 [degF] Procedures This patient has no known procedures. Results This patient has no known results.
--- OUTSIDE RECORDS SUMMARY | 2019-09-21 08:31 | XMS REPORT ---
:1945 Author Organization [facility] Care Team Providers Name Role Phone Unavailable Unavailable Unavailable Problems Condition Condition Condition Status Onset Resolution Last Treating Comments Name Details Category Date Date Treatment Clinician Date Peripheral Peripheral Diagnosis Active [facility], [id number] unspecified unspecified Allergies, Adverse Reactions, Alerts Allergy [...]
--- OUTSIDE RECORDS SUMMARY | 2019-09-21 08:31 | XMS REPORT ---
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, disease, [id number] unspecified unspecified 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 16 Ingrahm ulcer of ulcer of [id number] other part other part of right of right foot with foot with fat layer fat layer exposed exposed 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 -16 Ingrahm ulcer of ulcer of [id number] other part other part of right of right foot foot limited to limited to breakdown breakdown of skin of skin Essential Essential Diagnosis Active Sasha (primary) (primary) 08-21 Ingrahm hypertensio hypertensio [id number] n n Gout, Gout, Diagnosis Active Sasha unspecified unspecified 08-21 Ingrahm [id number] Low back Low back Diagnosis Active Sasha pain pain Ingrahm [id number] Gastro-esop Gastro-esop Diagnosis Active Sasha hageal hageal Ingrahm reflux reflux [id number] disease disease without without esophagitis esophagitis Hyperlipide Hyperlipide Diagnosis Active Sasha austin, austin, Ingrahm unspecified unspecified [id number] Alcohol Alcohol Diagnosis Active Sasha abuse, abuse, Ingrahm uncomplicat uncomplicat [id number] ed 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 Sasha (current) (current) Ingrahm use of use of [id number] anticoagula anticoagula nts nts 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 Sasha (current) (current) Ingrahm use of use of [id number] aspirin aspirin 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 Sasha (current) (current) Ingrahm use of use of [id number] opiate opiate analgesic analgesic Personal Personal Diagnosis Active Sasha history of history of Ingrahm nicotine nicotine [id number] dependence dependence Pain frequent Pain Mgmt Active 2019-0 Jennifer pain -16 (Manuel) 10:00: Sanchez [id number] Cardio edema Cardiovasc Active 2019-0 Jennifer ular -16 (Manuel) 10:00: Sanchez [id number] Respiratory dyspnea Respirator Active 2019-0 Jennifer present y - (Manuel) 10:00: Sanchez [id number] Endo/Lorne anti-coagul Endo/Lorne Active 2019-0 Jennifer ation -16 (Manuel) therapy 10:00: Sanchez [id number] Integument surgical Integument Active 2019-0 Jennifer wound -16 (Manuel) present 10:00: Sanchez [id number] Integument skin Integument Active 2019-0 Jennifer integrity -16 (Manuel) risk 10:00: Sanchez [id number] Nutrition nutritional Nutrition Active 2019-0 Jennifer restriction -16 (Manuel) s 10:00: Sanchez [id number] Elimination urinary Eliminatio Resolve 2019-0 2019-09-09 Jennifer incontinenc n d -16 11:20:00 (Manuel) e 10:00: Sanchez [id number] Neuro confusion Neuro/Emot Active 2020-0 Jennifer present ion -16 (Manuel) 10:00: Sanchez [id number] Activity ADL Activity Active 2019-0 Jennifer assistance -16 (Manuel) required 10:00: Sanchez [id number] Activity self-care Activity Active 2020-0 Jennifer deficit -16 (Manuel) 10:00: Sanchez [id number] Safety fall risk Safety Active 2020-0 Jennifer factor -16 (Manuel) present 10:00: Sanchez [id number] Safety risk for Safety Active 2020-0 Jennifer hospitaliza -16 (Manuel) tion 10:00: Sanchez [id number] Safety can be left Safety Active 2020-0 Jennifer alone for 1-16 (Manuel) only short 10:00: Sanchez [id number] Medication oral med Meds Active 2020-0 Jennifer assistance 16 (Manuel) required 10:00: [id number] Musculoskel transfer Musculoske Active 2020-0 Jennifer etal assistance letal 16 (Manuel) required 10:00: Sanchez [id number] Musculoskel requires Musculoske Active 2020-0 Jennifer etal human letal 09-05 (Manuel) assist to 10:00: Sanchez leave home [id number] Allergies, Adverse Reactions, Alerts Allergy Allergy Status [...]
--- OUTSIDE RECORDS SUMMARY | 2019-09-21 08:31 | XMS REPORT ---
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, disease, [id number] unspecified unspecified 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 16 Ingrahm ulcer of ulcer of [id number] other part other part of right of right foot with foot with fat layer fat layer exposed exposed 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 -16 Ingrahm ulcer of ulcer of [id number] other part other part of right of right foot foot limited to limited to breakdown breakdown of skin of skin Essential Essential Diagnosis Active Sasha (primary) (primary) 08-21 Ingrahm hypertensio hypertensio [id number] n n Gout, Gout, Diagnosis Active Sasha unspecified unspecified 08-21 Ingrahm [id number] Low back Low back Diagnosis Active Sasha pain pain Ingrahm [id number] Gastro-esop Gastro-esop Diagnosis Active Sasha hageal hageal Ingrahm reflux reflux [id number] disease disease without without esophagitis esophagitis Hyperlipide Hyperlipide Diagnosis Active Sasha austin, austin, Ingrahm unspecified unspecified [id number] Alcohol Alcohol Diagnosis Active Sasha abuse, abuse, Ingrahm uncomplicat uncomplicat [id number] 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 Sasha (current) (current) Ingrahm use of use of [id number] anticoagula anticoagula nts nts 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 Sasha (current) (current) Ingrahm use of use of [id number] aspirin aspirin 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 Sasha (current) (current) Ingrahm use of use of [id number] opiate opiate analgesic analgesic Personal Personal Diagnosis Active Sasha history of history of Ingrahm nicotine nicotine [id number] dependence dependence Pain frequent Pain Mgmt Active 2019-0 Jennifer pain -16 (Manuel) 10:00: Sanchez [id number] Cardio edema Cardiovasc Active 2019-0 Jennifer ular -16 (Manuel) 10:00: Sanchez [id number] Respiratory dyspnea Respirator Active 2019-0 Jennifer present y - (Manuel) 10:00: Sanchez [id number] Endo/Lorne anti-coagul Endo/Lorne Active 2019-0 Jennifer ation -16 (Manuel) therapy 10:00: Sanchez [id number] Integument surgical Integument Active 2019-0 Jennifer wound -16 (Manuel) present 10:00: Sanchez [id number] Integument skin Integument Active 2019-0 Jennifer integrity -16 (Manuel) risk 10:00: Sanchez [id number] Nutrition nutritional Nutrition Active 2019-0 Jennifer restriction -16 (Manuel) s 10:00: Sanchez [id number] Elimination urinary Eliminatio Resolve 2019-0 2019-09-09 Jennifer incontinenc n d -16 11:20:00 (Manuel) e 10:00: Sanchez [id number] Neuro confusion Neuro/Emot Active 2020-0 Jennifer present ion -16 (Manuel) 10:00: Sanchez [id number] Activity ADL Activity Active 2019-0 Jennifer assistance -16 (Manuel) required 10:00: Sanchez [id number] Activity self-care Activity Active 2020-0 Jennifer deficit -16 (Manuel) 10:00: Sanchez [id number] Safety fall risk Safety Active 2020-0 Jennifer factor -16 (Manuel) present 10:00: Sanchez [id number] Safety risk for Safety Active 2020-0 Jennifer hospitaliza -16 (Manuel) tion 10:00: Sanchez [id number] Safety can be left Safety Active 2020-0 Jennifer alone for 1-16 (Manuel) only short 10:00: Sanchez [id number] Medication oral med Meds Active 2020-0 Jennifer assistance 16 (Manuel) required 10:00: [id number] Musculoskel transfer Musculoske Active 2020-0 Jennifer etal assistance letal 16 (Manuel) required 10:00: Sanchez [id number] Musculoskel requires Musculoske Active 2020-0 Jennifer etal human letal 09-05 (Manuel) assist to 10:00: Sanchez leave home [id number] Allergies, Adverse Reactions, Alerts Allergy Allergy Status [...]
--- OUTSIDE RECORDS SUMMARY | 2019-09-21 08:31 | XMS REPORT ---
:1945 Author Organization [facility] Care Team Providers Name Role Phone Unavailable Unavailable Unavailable Problems Condition Condition Condition Status Onset Resolution Last Treating Comments Name Details Category Date Date Treatment Clinician Date Peripheral Peripheral Diagnosis Active 2020-0 Sasha vascular vascular -14 Ingrahm disease, disease, [id number] unspecified unspecified Pain frequent Pain Mgmt Active 2020-0 Jennifer pain -16 (Manuel) 10:00: Daniel [id number] Cardio edema Cardiovasc Active 2020-0 Jennifer ular -16 (Manuel) 10:00: Daniel [id number] Respiratory dyspnea Respirator Active 2020-0 Jennifer present y -16 (Manuel) 10:00: Daniel [id number] Endo/Lorne anti-coagul Endo/Lorne Active 2020-0 Jennifer ation -16 (Manuel) therapy 10:00: Daniel [id number] Integument surgical Integument Active 2020-0 Jennifer wound -16 (Manuel) present 10:00: Daniel [id number] Integument skin Integument Active 2020-0 Jennifer integrity -16 (Manuel) risk 10:00: Daniel [id number] Nutrition nutritional Nutrition Active 2020-0 Jennifer restriction -16 (Manuel) s 10:00: Daniel [id number] Elimination urinary Eliminatio Resolve 2020-0 2019-09-09 Jennifer incontinenc n d -16 11:20:00 (Manuel) e 10:00: Daniel [id number] Neuro confusion Neuro/Emot Active 2020-0 Jennifer present ion -16 (Manuel) 10:00: Daniel [id number] Activity ADL Activity Active 2020-0 Jennifer assistance -16 (Manuel) required 10:00: Daniel [id number] Activity self-care Activity Active 2020-0 Jennifer deficit -16 (Manuel) 10:00: [id number] Safety fall risk Safety Active 2020-0 Jennifer factor 1-16 (Manuel) present 10:00: [id number] Safety risk for Safety Active 2020-0 Jennifer hospitaliza 16 (Manuel) tion 10:00: [id number] Safety can be left Safety Active 2020-0 Jennifer alone for 16 (Manuel) only short 10:00: Sanchez [id number] Medication oral med Meds Active 2019-0 Jennifer assistance -16 (Manuel) required 10:00: [id number] Musculoskel transfer Musculoske Active 2020-0 Jennifer etal assistance letal 16 (Manuel) required 10:00: [id number] Musculoskel requires Musculoske Active 2019-0 Jennifer etal human letal 16 (Manuel) assist to 10:00: Sanchez leave home [id number] Allergies, Adverse Reactions, Alerts Allergy Allergy Status [...] mg 09-05 DO,Vivek tablet tablet amLODIPine amLODIPine Yes Fernando Unknown Unknown 2.5 mg 2.5 mg 09-05 Kristin WOOD tablet tablet Aspirin Low Aspirin Low Yes Sopchak Unknown Unknown Dose 81 mg Dose 81 mg 09-05 DO,Vivek tablet,hao tablet,hao yed release yed release atorvastati atorvastati Yes Sopchak Unknown Unknown n 40 mg n 40 mg 09-05 DO,Vivek tablet tablet gabapentin gabapentin 0 Yes Sopchak Unknown Unknown 300 mg 300 mg 09-05 DO,Vivek capsule capsule latanoprost latanoprost Yes Fernando Unknown Unknown 0.005 % eye 0.005 % eye 09-05 Kristin WOOD drops drops lisinopril lisinopril 2020-0 Yes Sopchak Unknown Unknown 40 mg 40 mg 1-16 DO,Vivek tablet tablet Protonix 40 Protonix 40 2019-0 Yes Sopchak Unknown Unknown mg mg -16 DO,Vivek tablet,hao tablet,hao yed release yed release Vitamin Vitamin No Fernando 1 tab Unknown B-12 1,000 B-12 1,000 MD,Foster mcg tablet mcg tablet collagenase collagenase 2019-0 Yes Sopchak Unknown Unknown -16 DO,Vivek multivitami multivitami 2019-0 Yes Sopchak Unknown Unknown n capsule n capsule 16 DO,Vivek Xarelto 2.5 Xarelto 2.5 2019-0 Yes Sopchak Unknown Unknown mg tablet mg tablet 16 DO,Vivek Acetaminoph Acetaminoph Yes Sopchak Unknown Unknown en Extra en Extra -16 DO,Vivek Strength Strength 500 mg 500 mg tablet tablet Vital Signs Vital Name Observation Time Observation Value Comments SYSTOLIC mm[Hg] 2019-09-08 18:09:57 132 mm[Hg] mm[Hg] Method: Stand SYSTOLIC mm[Hg] 2019-09-09 18:09:58 122 mm[Hg] mm[Hg] Method: Lie DIASTOLIC mm[Hg] 2019-09-08 18:09:57 64 mm[Hg] mm[Hg] Method: Stand DIASTOLIC mm[Hg] 2019-09-09 18:09:58 64 mm[Hg] mm[Hg] Method: Lie PULSE 2019-09-09 18:09:58 80 /min /min RESP RATE 2019-09-09 18:09:58 16 /min /min TEMP 2019-09-09 18:09:58 98.0 [degF] Procedures This patient has no known procedures. Results This patient has no known results.
--- OUTSIDE RECORDS SUMMARY | 2019-09-21 08:31 | XMS REPORT ---
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, disease, [id number] unspecified unspecified 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 09-05 Ingrahm ulcer of ulcer of [id number] other part other part of right of right foot with foot with fat layer fat layer exposed exposed 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 16 Ingrahm ulcer of ulcer of [id number] other part other part of right of right foot foot limited to limited to breakdown breakdown of skin of skin Essential Essential Diagnosis Active Sasha (primary) (primary) 08-21 Ingrahm hypertensio hypertensio [id number] n n Gout, Gout, Diagnosis Active Sasha unspecified unspecified 08-21 Ingrahm [id number] Low back Low back Diagnosis Active Sasha pain pain Ingrahm [id number] Gastro-esop Gastro-esop Diagnosis Active Sasha hageal hageal Ingrahm reflux reflux [id number] disease disease without without esophagitis esophagitis Hyperlipide Hyperlipide Diagnosis Active Sasha austin, austin, Ingrahm unspecified unspecified [id number] Alcohol Alcohol Diagnosis Active Sasha abuse, abuse, Ingrahm uncomplicat uncomplicat [id number] 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 Diagnosis Active Sasha (current) (current) Ingrahm use of use of [id number] anticoagula anticoagula nts nts long term acute care registered nurse long term acute care registered nurse Diagnosis Active Sasha (current) (current) Ingrahm use of use of [id number] aspirin aspirin long term acute care registered nurse long term acute care registered nurse Diagnosis Active Sasha (current) (current) Ingrahm use of use of [id number] opiate opiate analgesic analgesic Personal Personal Diagnosis Active Sasha history of history of Ingrahm nicotine nicotine [id number] dependence dependence Pain frequent Pain Mgmt Active 2019-0 Jennifer pain -16 (Manuel) 10:00: Sanchez [id number] Cardio edema Cardiovasc Active 2019-0 Jennifer ular -16 (Manuel) 10:00: Sanchez [id number] Respiratory dyspnea Respirator Active 2019-0 Jennifer present y - (Manuel) 10:00: Sanchez [id number] Endo/Lorne anti-coagul Endo/Lorne Active 2019-0 Jennifer ation -16 (Manuel) therapy 10:00: Sanchez [id number] Integument surgical Integument Active 2019-0 Jennifer wound -16 (Manuel) present 10:00: Sanchez [id number] Integument skin Integument Active 2019-0 Jennifer integrity -16 (Manuel) risk 10:00: Sanchez [id number] Nutrition nutritional Nutrition Active 2019-0 Jennifer restriction -16 (Manuel) s 10:00: Sanchez [id number] Elimination urinary Eliminatio Resolve 2019-0 2019-09-09 Jennifer incontinenc n d -16 11:20:00 (Manuel) e 10:00: Sanchez [id number] Neuro confusion Neuro/Emot Active 2020-0 Jennifer present ion -16 (Manuel) 10:00: Sanchez [id number] Activity ADL Activity Active 2019-0 Jennifer assistance -16 (Manuel) required 10:00: Sanchez [id number] Activity self-care Activity Active 2020-0 Jennifer deficit -16 (Manuel) 10:00: Sanchez [id number] Safety fall risk Safety Active 2020-0 Jennifer factor -16 (Manuel) present 10:00: Sanchez [id number] Safety risk for Safety Active 2020-0 Jennifer hospitaliza -16 (Manuel) tion 10:00: Sanchez [id number] Safety can be left Safety Active 2020-0 Jennifer alone for -16 (Manuel) only short 10:00: Sanchez periods [id number] Medication oral med Meds Active 2020-0 Jennifer assistance 16 (Manuel) required 10:00: Sanchez [id number] Musculoskel transfer Musculoske Active 2020-0 Jennifer etal assistance letal 16 (Manuel) required 10:00: Sanchez [id number] Musculoskel requires Musculoske Active 2020-0 Jennifer etal human letal 16 (Manuel) assist to 10:00: Sanchez leave home [id number] Elimination urinary Eliminatio Active 2020-0 Margoth urgency n 24 Cheryle 14:30: [facility] [id number] Allergies, Adverse Reactions, Alerts Allergy Allergy Status [...] Unknown Unknown en Extra en Extra - DO,Vivek Strength Strength 500 mg 500 mg tablet tablet oxyCODONE 5 oxyCODONE 5 Yes Fernando Unknown Unknown mg tablet mg tablet 09-10 Kristin WOOD Vital Signs Vital Name Observation Time Observation Value Comments SYSTOLIC mm[Hg] 2019-09-19 18:10:08 118 mm[Hg] mm[Hg] Method: Sit SYSTOLIC mm[Hg] 2019-09-08 18:09:57 132 mm[Hg] mm[Hg] Method: Stand SYSTOLIC mm[Hg] 2019-09-09 18:09:58 122 mm[Hg] mm[Hg] Method: Lie DIASTOLIC mm[Hg] 2019-09-19 18:10:08 55 mm[Hg] mm[Hg] Method: Sit DIASTOLIC mm[Hg] 2019-09-08 18:09:57 64 mm[Hg] mm[Hg] Method: Stand DIASTOLIC mm[Hg] 2019-09-09 18:09:58 64 mm[Hg] mm[Hg] Method: Lie PULSE 2019-09-19 18:10:08 72 /min /min RESP RATE 2019-09-19 18:10:08 16 /min /min TEMP 2019-09-19 18:10:08 97.6 [degF] Procedures This patient has no known procedures. Results This patient has no known results.
--- OUTSIDE RECORDS SUMMARY | 2019-09-21 08:31 | XMS REPORT ---
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, disease, [id number] unspecified unspecified 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 -16 Ingrahm ulcer of ulcer of [id number] other part other part of right of right foot with foot with fat layer fat layer exposed exposed 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 -16 Ingrahm ulcer of ulcer of [id number] other part other part of right of right foot foot limited to limited to breakdown breakdown of skin of skin Essential Essential Diagnosis Active Sasha (primary) (primary) 08-21 Ingrahm hypertensio hypertensio [id number] n n Gout, Gout, Diagnosis Active Sasha unspecified unspecified 08-21 Ingrahm [id number] Low back Low back Diagnosis Active Sasha pain pain Ingrahm [id number] Gastro-esop Gastro-esop Diagnosis Active Sasha hageal hageal Ingrahm reflux reflux [id number] disease disease without without esophagitis esophagitis Hyperlipide Hyperlipide Diagnosis Active Sasha austin, austin, Ingrahm unspecified unspecified [id number] Alcohol Alcohol Diagnosis Active Sasha abuse, abuse, Ingrahm uncomplicat uncomplicat [id number] 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 Sasha (current) (current) Ingrahm use of use of [id number] anticoagula anticoagula nts nts 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 Sasha (current) (current) Ingrahm use of use of [id number] aspirin aspirin 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 Sasha (current) (current) Ingrahm use of use of [id number] opiate opiate analgesic analgesic Personal Personal Diagnosis Active Sasha history of history of Ingrahm nicotine nicotine [id number] dependence dependence Pain frequent Pain Mgmt Active 2019-0 Jennifer pain -16 (Manuel) 10:00: Sanchez [id number] Cardio edema Cardiovasc Active 2019-0 Jennifer ular -16 (Manuel) 10:00: Sanchez [id number] Respiratory dyspnea Respirator Active 2019-0 Jennifer present y - (Manuel) 10:00: Sanchez [id number] Endo/Lorne anti-coagul Endo/Lorne Active 2019-0 Jennifer ation -16 (Manuel) therapy 10:00: Sanchez [id number] Integument surgical Integument Active 2019-0 Jennifer wound -16 (Manuel) present 10:00: Sanchez [id number] Integument skin Integument Active 2019-0 Jennifer integrity -16 (Manuel) risk 10:00: Sanchez [id number] Nutrition nutritional Nutrition Active 2019-0 Jennifer restriction -16 (Manuel) s 10:00: Sanchez [id number] Elimination urinary Eliminatio Resolve 2019-0 2019-09-09 Jennifer incontinenc n d -16 11:20:00 (Manuel) e 10:00: Sanchez [id number] Neuro confusion Neuro/Emot Active 2020-0 Jennifer present ion -16 (Manuel) 10:00: Sanchez [id number] Activity ADL Activity Active 2019-0 Jennifer assistance -16 (Manuel) required 10:00: Sanchez [id number] Activity self-care Activity Active 2020-0 Jennifer deficit -16 (Manuel) 10:00: Sanchez [id number] Safety fall risk Safety Active 2020-0 Jennifer factor -16 (Manuel) present 10:00: Sanchez [id number] Safety risk for Safety Active 2020-0 Jennifer hospitaliza -16 (Manuel) tion 10:00: Sanchez [id number] Safety can be left Safety Active 2020-0 Jennifer alone for 1-16 (Manuel) only short 10:00: Sanchez [id number] Medication oral med Meds Active 2020-0 Jennifer assistance 16 (Manuel) required 10:00: [id number] Musculoskel transfer Musculoske Active 2020-0 Jennifer etal assistance letal 16 (Manuel) required 10:00: Sanchez [id number] Musculoskel requires Musculoske Active 2020-0 Jennifer etal human letal 09-05 (Manuel) assist to 10:00: Sanchez leave home [id number] Allergies, Adverse Reactions, Alerts Allergy Allergy Status [...]
--- OUTSIDE RECORDS SUMMARY | 2019-09-21 08:31 | XMS REPORT ---
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, disease, [id number] unspecified unspecified 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 09-05 Ingrahm ulcer of ulcer of [id number] other part other part of right of right foot with foot with fat layer fat layer exposed exposed 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 -16 Ingrahm ulcer of ulcer of [id number] other part other part of right of right foot foot limited to limited to breakdown breakdown of skin of skin Essential Essential Diagnosis Active Sasha (primary) (primary) 08-21 Ingrahm hypertensio hypertensio [id number] n n Gout, Gout, Diagnosis Active Sasha unspecified unspecified 08-21 Ingrahm [id number] Low back Low back Diagnosis Active Sasha pain pain Ingrahm [id number] Gastro-esop Gastro-esop Diagnosis Active Sasha hageal hageal Ingrahm reflux reflux [id number] disease disease without without esophagitis esophagitis Hyperlipide Hyperlipide Diagnosis Active Sasha austin, austin, Ingrahm unspecified unspecified [id number] Alcohol Alcohol Diagnosis Active Sasha abuse, abuse, Ingrahm uncomplicat uncomplicat [id number] ed ed buttermaker buttermaker Diagnosis Active Sasha (current) (current) Ingrahm use of use of [id number] anticoagula anticoagula nts nts buttermaker buttermaker Diagnosis Active Sasha (current) (current) Ingrahm use of use of [id number] aspirin aspirin buttermaker buttermaker Diagnosis Active Sasha (current) (current) Ingrahm use of use of [id number] opiate opiate analgesic analgesic Personal Personal Diagnosis Active Sasha history of history of Ingrahm nicotine nicotine [id number] dependence dependence Pain frequent Pain Mgmt Active 2019-0 Jennifer pain -16 (Manuel) 10:00: Sanchez [id number] Cardio edema Cardiovasc Active 2019-0 Jennifer ular -16 (Manuel) 10:00: Sanchez [id number] Respiratory dyspnea Respirator Active 2019-0 Jennifer present y - (Manuel) 10:00: Sanchez [id number] Endo/Lorne anti-coagul Endo/Lorne Active 2019-0 Jennifer ation -16 (Manuel) therapy 10:00: Sanchez [id number] Integument surgical Integument Active 2019-0 Jennifer wound -16 (Manuel) present 10:00: Sanchez [id number] Integument skin Integument Active 2019-0 Jennifer integrity -16 (Manuel) risk 10:00: Sanchez [id number] Nutrition nutritional Nutrition Active 2019-0 Jennifer restriction -16 (Manuel) s 10:00: Sanchez [id number] Elimination urinary Eliminatio Resolve 2019-0 2019-09-09 Jennifer incontinenc n d -16 11:20:00 (Manuel) e 10:00: Sanchez [id number] Neuro confusion Neuro/Emot Active 2020-0 Jennifer present ion -16 (Manuel) 10:00: Sanchez [id number] Activity ADL Activity Active 2019-0 Jennifer assistance -16 (Manuel) required 10:00: Sanchez [id number] Activity self-care Activity Active 2020-0 Jennifer deficit -16 (Manuel) 10:00: Sanchez [id number] Safety fall risk Safety Active 2020-0 Jennifer factor -16 (Manuel) present 10:00: Sanchez [id number] Safety risk for Safety Active 2020-0 Jennifer hospitaliza -16 (Manuel) tion 10:00: Sanchez [id number] Safety can be left Safety Active 2020-0 Jennifer alone for -16 (Manuel) only short 10:00: Sanchez periods [id number] Medication oral med Meds Active 2020-0 Jennifer assistance 16 (Manuel) required 10:00: Sanchez [id number] Musculoskel transfer Musculoske Active 2020-0 Jennifer etal assistance letal 16 (Manuel) required 10:00: Sanchez [id number] Musculoskel requires Musculoske Active 2020-0 Jennifer etal human letal 16 (Manuel) assist to 10:00: Sanchez leave home [id number] Elimination urinary Eliminatio Active 2020-0 Margoth urgency n 24 Cheryle 14:30: [facility] [id number] Allergies, Adverse Reactions, Alerts Allergy Allergy Status [...]
--- OUTSIDE RECORDS SUMMARY | 2019-09-21 08:31 | XMS REPORT ---
:1945 Author Organization [facility] Care Team Providers Name Role Phone Unavailable Unavailable Unavailable Problems Condition Condition Condition Status Onset Resolution Last Treating Comments Name Details Category Date Date Treatment Clinician Date Peripheral Peripheral Diagnosis Active Neelam vascular vascular 1-14 Wendela disease, disease, unspecified unspecified Allergies, Adverse Reactions, Alerts Allergy [...]
--- OUTSIDE RECORDS SUMMARY | 2019-09-21 08:31 | XMS REPORT ---
:1945 Author Organization [facility] Care Team Providers Name Role Phone Unavailable Unavailable Unavailable Problems Condition Condition Condition Status Onset Resolution Last Treating Comments Name Details Category Date Date Treatment Clinician Date Peripheral Peripheral Diagnosis Active 2020-0 Sasha vascular vascular 1-14 Ingrahm disease, disease, [id number] unspecified unspecified Pain frequent Pain Mgmt Active 2020-0 Jennifer pain 1-16 (Manuel) 10:00: Daniel [id number] Cardio edema Cardiovasc Active 2020-0 Jennifer ular 1-16 (Manuel) 10:00: Daniel [id number] Respiratory dyspnea Respirator Active 2020-0 Jennifer present y 1-16 (Manuel) 10:00: Daniel [id number] Endo/Lorne anti-coagul Endo/Lorne Active 2020-0 Jennifer ation 1-16 (Manuel) therapy 10:00: Daniel [id number] Integument surgical Integument Active 2020-0 Jennifer wound 1-16 (Manuel) present 10:00: Daniel [id number] Integument skin Integument Active 2020-0 Jennifer integrity 1-16 (Manuel) risk 10:00: Daniel [id number] Nutrition nutritional Nutrition Active 2020-0 Jennifer restriction 1-16 (Manuel) s 10:00: Daniel [id number] Elimination urinary Eliminatio Active 2020-0 Jennifer incontinenc n 1-16 (Manuel) e 10:00: Daniel [id number] Neuro confusion Neuro/Emot Active 2020-0 Jennifer present ion 1-16 (Manuel) 10:00: Daniel [id number] Activity ADL Activity Active 2020-0 Jennifer assistance 1-16 (Manuel) required 10:00: Daniel [id number] Activity self-care Activity Active 2020-0 Jennifer deficit 1-16 (Manuel) 10:00: [id number] Safety fall risk Safety Active 2020-0 Jennifer factor 1-16 (Manuel) present 10:00: [id number] Safety risk for Safety Active 2020-0 Jennifer hospitaliza 16 (Manuel) tion 10:00: [id number] Safety can be left Safety Active 2020-0 Jennifer alone for 16 (Manuel) only short 10:00: Sanchez [id number] Medication oral med Meds Active 2020-0 Jennifer assistance 16 (Manuel) required 10:: [id number] Musculoskel transfer Musculoske Active 2020-0 Jennifer etal assistance letal 16 (Manuel) required 10:: Sanchez [id number] Musculoskel requires Musculoske Active 2020-0 Jennifer etal human letal 16 (Manuel) assist to 10:00: Sanchez leave home [id number] Allergies, Adverse Reactions, Alerts Allergy Allergy Status [...] mg 09-05 DO,Vivek tablet tablet amLODIPine amLODIPine 2019-0 Yes Fernando Unknown Unknown 2.5 mg 2.5 mg 09-05 Kristin WOOD tablet tablet Aspirin Low Aspirin Low 2019- [...] 2019-0 Yes Sopchak Unknown Unknown mg mg 1-16 DO,Vivek tablet,hao tablet,hao yed release yed release Vitamin Vitamin No Fernando 1 tab Unknown B-12 1,000 B-12 1,000 MD,Foster mcg tablet mcg tablet collagenase collagenase 2019-0 Yes Sopchak Unknown Unknown -16 DO,Vivek multivitami multivitami 2019-0 Yes Sopchak Unknown Unknown n capsule n capsule -16 DO,Vivek Xarelto 2.5 Xarelto 2.5 2019-0 Yes Sopchak Unknown Unknown mg tablet mg tablet -16 DO,Vivek Acetaminoph Acetaminoph 2019-0 Yes Sopchak Unknown Unknown en Extra en Extra -16 DO,Vivek Strength Strength 500 mg 500 mg tablet tablet Vital Signs Vital Name Observation Time Observation Value Comments SYSTOLIC mm[Hg] 2019-09-08 18:09:57 132 mm[Hg] mm[Hg] Method: Sit SYSTOLIC mm[Hg] 2019-09-08 18:09:57 132 mm[Hg] mm[Hg] Method: Stand DIASTOLIC mm[Hg] 2019-09-08 18:09:57 64 mm[Hg] mm[Hg] Method: Sit DIASTOLIC mm[Hg] 2019-09-08 18:09:57 64 mm[Hg] mm[Hg] Method: Stand PULSE 2019-09-08 18:09:57 82 /min /min RESP RATE 2019-09-08 18:09:57 16 /min /min TEMP 2019-09-08 18:09:57 98.1 [degF] Procedures This patient has no known procedures. Results This patient has no known results.
--- OUTSIDE RECORDS SUMMARY | 2019-09-21 08:31 | XMS REPORT ---
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-21 Ingrahm disease, disease, [id number] unspecified unspecified 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 16 Ingrahm ulcer of ulcer of [id number] other part other part of right of right foot with foot with fat layer fat layer exposed exposed 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 -16 Ingrahm ulcer of ulcer of [id number] other part other part of right of right foot foot limited to limited to breakdown breakdown of skin of skin Essential Essential Diagnosis Active Sasha (primary) (primary) 08-21 Ingrahm hypertensio hypertensio [id number] n n Gout, Gout, Diagnosis Active Sasha unspecified unspecified 08-21 Ingrahm [id number] Low back Low back Diagnosis Active Sasha pain pain Ingrahm [id number] Gastro-esop Gastro-esop Diagnosis Active Sasha hageal hageal Ingrahm reflux reflux [id number] disease disease without without esophagitis esophagitis Hyperlipide Hyperlipide Diagnosis Active Sasha austin, austin, Ingrahm unspecified unspecified [id number] Alcohol Alcohol Diagnosis Active Sasha abuse, abuse, Ingrahm uncomplicat uncomplicat [id number] ed ed roasterman roasterman Diagnosis Active Sasha (current) (current) Ingrahm use of use of [id number] anticoagula anticoagula nts nts roasterman roasterman Diagnosis Active Sasha (current) (current) Ingrahm use of use of [id number] aspirin aspirin roasterman roasterman Diagnosis Active Sasha (current) (current) Ingrahm use of use of [id number] opiate opiate analgesic analgesic Personal Personal Diagnosis Active Sasha history of history of Ingrahm nicotine nicotine [id number] dependence dependence Pain frequent Pain Mgmt Active 2019-0 Jennifer pain -16 (Manuel) 10:00: Sanchez [id number] Cardio edema Cardiovasc Active 2019-0 Jennifer ular -16 (Manuel) 10:00: Sanchez [id number] Respiratory dyspnea Respirator Active 2019-0 Jennifer present y - (Manuel) 10:00: Sanchez [id number] Endo/Lorne anti-coagul Endo/Lorne Active 2019-0 Jennifer ation -16 (Manuel) therapy 10:00: Sanchez [id number] Integument surgical Integument Active 2019-0 Jennifer wound -16 (Manuel) present 10:00: Sanchez [id number] Integument skin Integument Active 2019-0 Jennifer integrity -16 (Manuel) risk 10:00: Sanchez [id number] Nutrition nutritional Nutrition Active 2019-0 Jennifer restriction -16 (Manuel) s 10:00: Sanchez [id number] Elimination urinary Eliminatio Resolve 2019-0 2019-09-09 Jennifer incontinenc n d -16 11:20:00 (Manuel) e 10:00: Sanchez [id number] Neuro confusion Neuro/Emot Active 2020-0 Jennifer present ion -16 (Manuel) 10:00: Sanchez [id number] Activity ADL Activity Active 2019-0 Jennifer assistance -16 (Manuel) required 10:00: Sanchez [id number] Activity self-care Activity Active 2020-0 Jennifer deficit -16 (Manuel) 10:00: Sanchez [id number] Safety fall risk Safety Active 2020-0 Jennifer factor -16 (Manuel) present 10:00: Sanchez [id number] Safety risk for Safety Active 2020-0 Jennifer hospitaliza -16 (Manuel) tion 10:00: Sanchez [id number] Safety can be left Safety Active 2020-0 Jennifer alone for -16 (Manuel) only short 10:00: Sanchez periods [id number] Medication oral med Meds Active 2020-0 Jennifer assistance 16 (Manuel) required 10:00: Sanchez [id number] Musculoskel transfer Musculoske Active 2020-0 Jennifer etal assistance letal 16 (Manuel) required 10:00: Asnchez [id number] Musculoskel requires Musculoske Active 2020-0 Jennifer etal human letal 16 (Manuel) assist to 10:00: Sanchez leave home [id number] Elimination urinary Eliminatio Active 2020-0 Margoth urgency n 24 Cheryle 14:30: [facility] [id number] Allergies, Adverse Reactions, Alerts Allergy Allergy Status [...]
--- OUTSIDE RECORDS SUMMARY | 2019-09-21 08:31 | XMS REPORT ---
:1945 Author Organization [facility] Care Team Providers Name Role Phone Unavailable Unavailable Unavailable Problems Condition Condition Condition Status Onset Resolution Last Treating Comments Name Details Category Date Date Treatment Clinician Date Peripheral Peripheral Diagnosis Active 2020-0 Sasha vascular vascular -14 Ingrahm disease, disease, [id number] unspecified unspecified Pain frequent Pain Mgmt Active 2020-0 Jennifer pain -16 (Manuel) 10:00: Daniel [id number] Cardio edema Cardiovasc Active 2020-0 Jennifer ular -16 (Manuel) 10:00: Daniel [id number] Respiratory dyspnea Respirator Active 2020-0 Jennifer present y -16 (Manuel) 10:00: Daniel [id number] Endo/Lorne anti-coagul Endo/Lorne Active 2020-0 Jennifer ation -16 (Manuel) therapy 10:00: Daniel [id number] Integument surgical Integument Active 2020-0 Jennifer wound -16 (Manuel) present 10:00: Daniel [id number] Integument skin Integument Active 2020-0 Jennifer integrity -16 (Manuel) risk 10:00: Daniel [id number] Nutrition nutritional Nutrition Active 2020-0 Jennifer restriction -16 (Manuel) s 10:00: Daniel [id number] Elimination urinary Eliminatio Resolve 2020-0 2019-09-09 Jennifer incontinenc n d -16 11:20:00 (Manuel) e 10:00: Daniel [id number] Neuro confusion Neuro/Emot Active 2020-0 Jennifer present ion -16 (Manuel) 10:00: Daniel [id number] Activity ADL Activity Active 2020-0 Jennifer assistance -16 (Manuel) required 10:00: Daniel [id number] Activity self-care Activity Active 2020-0 Jennifer deficit -16 (Manuel) 10:00: [id number] Safety fall risk Safety Active 2020-0 Jennifer factor 1-16 (Manuel) present 10:00: [id number] Safety risk for Safety Active 2020-0 Jennifer hospitaliza 16 (Manuel) tion 10:00: [id number] Safety can be left Safety Active 2020-0 Jennifer alone for 16 (Manuel) only short 10:00: Sanchez [id number] Medication oral med Meds Active 2019-0 Jennifer assistance -16 (Manuel) required 10:00: [id number] Musculoskel transfer Musculoske Active 2020-0 Jennifer etal assistance letal 16 (Manuel) required 10:00: [id number] Musculoskel requires Musculoske Active 2019-0 Jennifer etal human letal 16 (Manuel) assist to 10:00: Sanchez leave home [id number] Allergies, Adverse Reactions, Alerts Allergy Allergy Status [...] Unknown Unknown 2.5 mg 2.5 mg 09-05 Krsitin WOOD tablet tablet Aspirin Low Aspirin Low [...]
--- OUTSIDE RECORDS SUMMARY | 2019-09-21 08:31 | XMS REPORT ---
:1945 Author Organization [facility] Care Team Providers Name Role Phone Unavailable Unavailable Unavailable Problems Condition Condition Condition Status Onset Resolution Last Treating Comments Name Details Category Date Date Treatment Clinician Date Peripheral Peripheral Diagnosis Active [facility] vascular [facility] 1[facility] disease, disease, [id number] unspecified unspecified Allergies, Adverse Reactions, Alerts Allergy [...]
--- OUTSIDE RECORDS SUMMARY | 2019-09-21 08:32 | XMS REPORT | Summary of Care ---
:1945 Author Organization [facility] Address [address] [place] [address] Care Team Providers Name Role Phone Vivek Geronimo DO Primary Care Provider Reason for Visit Auth/Cert Status Reason Specialty Diagnoses / Procedures Referred By Contact Referred To Contact Diagnoses bilateral PAD, rest pain Kristin Fernando MD [address] [facility] Room [address] [place] [phone] Email: [email or web address] Encounter Details Date Type Department Care Team Description 07/29/2019 Hospital Encounter 01D ONE DAY SUITE Kristin Fernando MD Claudication [address] [facility] [address] [place] [address] [place] [address] [phone] Allergies No Known Allergiesdocumented as of this encounter (statuses as of 07/29/2019) Medications Medication Sig Dispensed Refills Start Date End Date Status atorvastatin (LIPITOR) Take 40 mg by 0 Active 40 MG tablet mouth every morning lisinopril Take 40 mg by 0 Active (PRINIVIL,ZESTRIL) 40 MG mouth every tablet morning amlodipine (NORVASC) 2.5 Take 2.5 mg by 0 Active MG tablet mouth Two Times Daily Cyanocobalamin (VITAMIN Take 1,000 mg by 0 Active B 12 PO) mouth Two Times Daily aspirin 81 MG tablet Take 81 mg by 0 Active mouth daily. pantoprazole (PROTONIX) Take 40 mg by 0 Active 40 MG tablet mouth every morning allopurinol (ZYLOPRIM) Take 200 mg by 0 Active 100 MG tablet mouth every morning ferrous sulfate 325 (65 Take 325 mg by 0 Active FE) MG tablet mouth Three times daily with meals colchicine 0.6 MG tablet Take 0.6 mg by 0 Active mouth Two Times Daily Ascorbic Acid (VITAMIN C Take 1,000 mg by 0 Active PO) mouth every morning gabapentin (NEURONTIN) Take 300 mg by 0 Active 300 MG capsule mouth Two Times Daily latanoprost (XALATAN) 0 08/07/2017 Active 0.005 % ophthalmic solution acetaminophen (TYLENOL) Take 500 mg by 0 Active 500 MG tablet mouth every 6 (six) hours as needed for Pain indomethacin (INDOCIN TAKE ONE CAPSULE 3 02/05/2019 Active SR) 75 MG CR capsule BY MOUTH EVERY DAY WITH FOOD OR MILK Multiple Take by mouth 0 Active Vitamins-Minerals (PRESERVISION AREDS 2 PO) documented as of this encounter (statuses as of 07/29/2019) Active Problems Problem Noted Date PAD (peripheral artery disease) 07/29/2019 Atherosclerotic PVD with ulceration 10/24/2016 PVD (peripheral vascular disease) 01/30/2015 Current smoker 10/29/2014 Hyperlipidemia 10/29/2014 Hypertension 10/29/2014 Critical ischemia of lower extremity 10/29/2014 Ischemic ulcer 10/27/2014 documented as of this encounter (statuses as of 07/29/2019) Social History Tobacco Use Types Packs/Day Years Used Date Former Smoker Cigarettes 1 50 Quit: 02/28/2015 Smokeless Tobacco: Never Used Comments: cutting down to 3-4 daily Alcohol Use Drinks/Week oz/Week Comments Yes 42 [...] Sign Reading Time Taken Comments Blood Pressure 135/69 07/29/2019 2:00 PM EST Pulse 92 07/29/2019 2:00 PM EST Temperature 36.6 07/29/2019 2:00 PM EST C (97.9 F) Respiratory Rate 17 07/29/2019 2:00 PM EST Oxygen Saturation 97% 07/29/2019 2:00 PM EST Inhaled Oxygen Concentration - - Weight 82.1 kg (181 lb) 07/29/2019 7:33 AM EST Height 172.7 cm (5' 8") 07/29/2019 7:33 AM EST Body Mass Index 27.52 07/29/2019 7:33 AM EST documented in this encounter Discharge Instructions Discharge Instr - Other AbbeyMuYadira schuler RN - 07/29/2019 2:[address] Lowell Cyr, pt. Is to take off dressing tomorrow . documented in this encounter Progress Notes Yadira Licona RN - 07/29/2019 2:35 PM [id number]: Per Dr. Lowell Cyr, pt. Does not need a sling for home, he can Leave the facility at 1600 without an AVS. Pt. Can take dressing off tomorrow and leave open to air. documented in this encounter Plan of Treatment Name Type Priority Associated Diagnoses Date/Time IR Aortogram Imaging Routine Claudication 07/29/2019 11:09 AM EST Name Type Priority Associated Diagnoses Order Schedule IR Aortogram Imaging Routine Claudication One Time Imaging Routine for 1 Occurrences starting 07/29/2019 until 07/29/2019 Health Maintenance Due Date Last Done Comments Hepatitis C Screening (B. 1945 [id number]) MMR Vaccines (1 of 1 - Standard [...] of this encounter Implants Implanted Type Area Early Education Teacher Device Shelf Model / Identifier Expiration Serial / Date Lot Patch Vasc Xenosure [id number] - [id number] Left: [facility] 07/20/2017 E0.8P8 / Implanted: Qty: 1 on 01/30/2015 by Kristin Fernando MD at OR 5E Arterial VASCULAR / [id number] Stent- Lifestent-6 X 40 X130 - [id number] Left: [facility] 01/30/2016 [id number] / Implanted: Qty: 1 on 01/30/2015 by Kristin Fernando MD at OR 5E Arterial / [id number] Pledget Ptfe 9.5x4.8mm - [id number] Left: [facility] ALICE [id number] / Implanted: Qty: 1 on 01/30/2015 by Kristin Fernando MD at OR 5E Arterial / Patch Vasc Xenosure 0.7uta2nm - [id number] Right: [facility] 2021 E0.8P8 / Implanted: Qty: 1 on 10/28/2016 by Kristin Fernando MD at OR 5E VASCULAR / [id number] Graft Vasc Propaten [id number] - [id number] Groin CHARLENE KLINE Jessica 05/25/2020 [id number] / Implanted: Qty: 1 on 10/28/2016 by Kristin Fernando MD at OR 5E + [employer] [id number] / Description:femoral to femoral artery graft Stent- Omnilink 8mm X 39 [id number] - [id number] Arterial [facility] 07/20/2022 [id number] / Implanted: Qty: 1 on 07/29/2019 by Kristin Fernando MD at OR [facility] [id number] / [id number] Description:iliac documented as of this encounter Procedures Procedure Name Priority Date/Time Associated Diagnosis Comments POCT ISTAT ACT Routine 07/29/2019 10:53 AM Results for this EST procedure are in the results section. POCT ISTAT ACT Routine 07/29/2019 10:19 AM Results for this EST procedure are in the results section. POCT ISTAT ACT Routine 07/29/2019 9:37 AM Results for this EST procedure are in the results section. OPERATIVE AND 07/29/2019 7:39 AM PROCEDURE NOTE EST CBC STAT 07/29/2019 7:25 AM Results for this EST procedure are in the results section. BASIC METABOLIC STAT 07/29/2019 7:25 AM Results for this PANEL EST procedure are in the results section. documented in this encounter Results POCT i-STAT ACT (07/29/2019 10:53 AM EST) i-Stat ACT [facility] POC Specimen Whole Blood Performing Organization Address [facility] Phone Number POINT OF CARE TEST [address] POC [address] [place] [address] POCT i-STAT ACT (07/29/2019 10:19 AM EST) i-Stat ACT [facility] POC Specimen Whole Blood Performing Organization Address [facility] Phone Number POINT OF CARE TEST [address] POC [address] [place] [address] POCT i-STAT ACT (07/29/2019 9:37 AM EST) i-Stat ACT [facility] POC Specimen Whole Blood Performing Organization Address [facility] Phone Number POINT OF CARE TEST [address] POC [address] [place] [address] CBC (07/29/2019 7:25 AM EST) White Blood Cell 9.5 4 - 10 10*3/uL [facility] Clin Pathology Red Blood Cell 4.32 (L) 4.6 - 6.1 [facility] 10*6/uL Univ Clin Pathology Hemoglobin 14.4 13.5 - 18 g/dL [facility] Clin Pathology Hematocrit 42.8 41 - 53 % [facility] Clin Pathology Mean Cell Volume 98.9 (H) 80 - 96 fL [facility] Clin Pathology Mean Cell Hemoglobin 33.3 (H) 27 - 33 pg [facility] Clin Pathology Mean Cell Hgb Conc 33.7 32.0 - 36.0 [facility] g/dL Univ Clin Pathology Red Cell Dist Width 14.4 11.5 - 14.5 % [facility] Clin Pathology Platelet Count 356 150 - 400 [facility] 10*3/uL Univ Clin Pathology Specimen EDTA Whole Blood Performing Organization Address [facility] Phone Number [facility] CLINICAL PATHOLOGY [address] [place] [address] [facility] Clin [address] [place] [address] Pathology Basic Metabolic Panel (07/29/2019 7:25 AM EST) Bicarbonate 24 22 - 29 mmol/L [facility] Clin Pathology Chloride 95 (L) 98 - 107 mmol/L [facility] Clin Pathology Creatinine 0.95 0.70 - 1.20 [facility] mg/dL Univ Clin Pathology Glucose 128 70 - 140 mg/dL [facility] Clin Pathology Potassium 3.8 3.4 - 5.1 mmol/L [facility] Clin Pathology Sodium 136 136 - 145 mmol/L [facility] Clin Pathology Blood Urea Nitrogen 12 8 - 23 mg/dL [facility] Clin Pathology Anion Gap 16 (H) 8 - 15 mmol/L [facility] Clin Pathology Osmolality, Jermain 282 275 - 300 [facility] mosm/kg Univ Clin Pathology BUN/Cre Ratio 12 [facility] Clin Pathology Calcium 9.9 8.8 - 10.2 mg/dL [facility] Clin Pathology GFR Non 81 >60 [facility] [place] 2009 CDK-EPI mL/min/1.73m2 Univ Clin Pathology GFR >90 >60 [facility] 2009 CKD-EPI mL/min/1.73m2 [facility] Clin Pathology Specimen Plasma Performing Organization Address [facility] Phone Number [facility] CLINICAL PATHOLOGY [address] [place] [address] [phone] [facility] Clin [address] [place] [address] Pathology documented in this encounter Visit Diagnoses Diagnosis Claudication Peripheral vascular disease, unspecified documented in this encounter
--- OUTSIDE RECORDS SUMMARY | 2019-09-21 08:32 | XMS REPORT | Summary of Care ---
:1945 Author Organization [facility] Address [address] [place] [address] Care Team Providers Name Role Phone Vivek Geronimo DO Primary Care Provider Encounter Details Date Type Department Care Team Description 08/26/2019 Office Visit PREADMISSION TESTING Rosalinda Landis, Preop testing [address] [facility] (Primary Dx) [address] [place] [address] [address] [phone] [place] [address] [phone] Allergies No Known Allergiesdocumented as of this encounter (statuses as of 08/27/2019) Medications Medication Sig Dispensed Refills Start Date [...] by 0 Active 20 MG tablet mouth every morning allopurinol (ZYLOPRIM) Take 300 mg by 0 Active 300 MG tablet mouth every morning ferrous sulfate [...] mouth Three times daily latanoprost (XALATAN) Place 2 drops 0 08/07/2017 Active 0.005 % ophthalmic into both eyes solution every evening acetaminophen (TYLENOL) Take 500 mg by 0 Active 500 MG tablet mouth every 6 (six) hours as needed for Pain indomethacin (INDOCIN Take 75 mg by 3 02/05/2019 Active SR) 75 MG CR capsule mouth every morning Multiple Take 2 tablets 0 Active Vitamins-Minerals by mouth nightly (PRESERVISION AREDS 2 PO) Chlorthalidone 25 MG Take 25 mg by 0 08/18/2019 Active Oral Tablet (HYGROTON) mouth every morning documented as of this encounter (statuses as of 08/27/2019) Active Problems Problem Noted Date PAD (peripheral artery disease) 07/29/2019 Atherosclerotic PVD with ulceration 10/24/2016 PVD (peripheral vascular disease) 01/30/2015 Current smoker 10/29/2014 Hyperlipidemia 10/29/2014 Hypertension 10/29/2014 Critical ischemia of lower extremity 10/29/2014 Ischemic ulcer 10/27/2014 documented as of this encounter (statuses as of 08/27/2019) Social History Tobacco Use Types Packs/Day Years [...] Sign Reading Time Taken Comments Blood Pressure 156/72 08/26/2019 10:42 AM EST Pulse 92 08/26/2019 10:42 AM EST Temperature 37 08/26/2019 10:42 AM C (98.6 EST F) Respiratory Rate 16 08/26/2019 10:42 AM EST Oxygen Saturation 97% 08/26/2019 10:42 AM EST Inhaled Oxygen Concentration - - Weight 85.6 kg (188 lb 11.4 oz) 08/26/2019 10:42 AM EST Height 167.5 cm (5' 5.95") 08/26/2019 10:42 AM EST Body Mass Index 30.51 08/26/2019 10:42 AM EST documented in this encounter Plan of Treatment Date Type Specialty Care Team Description 08/28/2019 Hospital Encounter Surgery Kristin Fernando MD [place] [address] [phone] Health Maintenance Due Date Last Done Comments Hepatitis C Screening (B. 1945 [id number]) MMR Vaccines (1 of 1 - Standard [...] of this encounter Implants Implanted Type Area Boring And Filling Machine Operator Device Shelf Model / Identifier Expiration Serial / Date Lot Patch Vasc Xenosure [id number] - [id number] Left: [employer] 07/20/2017 E0.8P8 / Implanted: Qty: 1 on 01/30/2015 by Kristin Fernando MD at OR 5E Arterial VASCULAR / [id number] Stent- Lifestent-6 X 40 X130 - [id number] Left: [facility] 01/30/2016 [id number] / Implanted: Qty: 1 on 01/30/2015 by Kristin Fernando MD at OR 5E Arterial / [id number] Pledget Ptfe 9.5x4.8mm - [id number] Left: [facility] [id number] / Implanted: Qty: 1 on 01/30/2015 by Kristin Fernando MD at OR 5E Arterial / Patch Vasc Xenosure [id number] - [id number] Right: [employer] 2021 E0.8P8 / Implanted: Qty: 1 on 10/28/2016 by Kristin Fernando MD at OR 5E VASCULAR / [id number] Graft Vasc Propaten [id number] - [id number] CHARLENE Deng 05/25/2020 [id number] / Implanted: Qty: 1 on 10/28/2016 by Kristin Fernando MD at OR 5E [employer] [id number] / Description:femoral to femoral artery graft Stent- Omnilink 8mm X 39 [id number] - [id number] Arterial [facility] 07/20/2022 [id number] / Implanted: Qty: 1 on 07/29/2019 by Kristin Fernando MD at OR [facility] [id number] / [id number] Description:iliac documented as of this encounter Procedures Procedure Name Priority Date/Time Associated Diagnosis Comments CBC Routine 08/26/2019 11:04 AM Preop testing Results for this EST procedure are in the results section. TYPE AND SCREEN Routine 08/26/2019 11:04 AM Preop testing Results for this EST procedure are in the results section. documented in this encounter Results CBC (08/26/2019 11:04 AM EST) White Blood Cell 7.8 4 - 10 10*3/uL [facility] Clin Pathology Red Blood Cell 3.98 (L) 4.6 - 6.1 Health system 10*6/uL Univ Clin Pathology Hemoglobin 13.2 (L) 13.5 - 18 g/dL [facility] Clin Pathology Hematocrit 39.0 (L) 41 - 53 % [facility] Clin Pathology Mean Cell Volume 97.9 (H) 80 - [address] [facility] Clin Pathology Mean Cell Hemoglobin 33.1 (H) 27 - [address] [facility] Clin Pathology Mean Cell Hgb Conc 33.8 32.0 - 36.0 Health system g/dL [facility] Clin Pathology Red Cell Dist Width 14.1 11.5 - 14.5 % [facility] Clin Pathology Platelet Count 309 150 - 400 Health system 10*3/uL Univ Clin Pathology Specimen EDTA Whole Blood Performing Organization Address City/State/Zipcode Phone Number [facility] CLINICAL PATHOLOGY [address] [place], [place] [phone] Health system Univ Clin [address] [place] [address] Pathology Type and screen (08/26/2019 11:04 AM EST) ABO/RH(D) O POS [facility] Pathology Gel Antibody Screen NEG [facility] Pathology Site Performed at [facility], [facility], Pathology [place], [place] Blood Bank Comment Blood Type Health system Confirmed [facility] Pathology Specimen EDTA Whole Blood Performing Organization Address City/[facility]/Zipcode Phone Number [facility] CLINICAL PATHOLOGY [address] [place], [place] [phone] [facility] Clin [address] [place] [address] Pathology documented in this encounter Visit Diagnoses Diagnosis Preop testing - Primary Preoperative examination, unspecified documented in this encounter
--- OUTSIDE RECORDS SUMMARY | 2019-09-21 08:32 | XMS REPORT | Summary of Care ---
:1945 Author Organization [facility] Address [address] [place] [address] Care Team Providers Name Role Phone Vivek Geronimo DO Primary Care Provider Reason for Referral Home Health Care (Routine) Status Reason Specialty Diagnoses / Referred By Referred To Procedures Contact Contact Open Specialty Home Health Diagnoses PAD (peripheral artery disease) Denisse Olivarez Services Services B, RUG SHAMPOOER Required [address] [address] Email: [email or web address] Diagnostic Radiology (Routine) Status Reason Specialty Diagnoses / Procedures Referred By Contact Referred To Contact Open Procedures Lois, Doppler Lower MD Augusto Extremity Bilateral [address] [facility] Venous Comp (Vascular Room 4835 Lab) [place] [address] US Doppler Lower Extremity Bilateral Venous Comp (Vascular Email: Lab) [email or web address] Diagnostic Radiology (Routine) Status Reason Specialty Diagnoses / Referred By Contact Referred To Procedures Contact Open Diagnoses PVD (peripheral vascular disease) 08g Cardiothoracic Procedures US Doppler Lower Unilateral Arterial Bypass [employer] (Vascular Lab) [address] [place] [address] Diagnostic Radiology (Routine) Status Reason Specialty Diagnoses / Referred By Contact Referred To Procedures Contact Open Diagnoses PVD (peripheral vascular disease) Ischemic ulcer, limited to breakdown of skin 08g Cardiothoracic Procedures US Doppler Lower Unilateral Arterial Bypass [employer] (Vascular Lab) [address] [place] [address] Diagnostic Radiology (Routine) Status Reason Specialty Diagnoses / Procedures Referred By Contact Referred To Contact Open Procedures Denisse Olivarez, MALIKA US Doppler Lower [address] Extremity Unilateral 8th Floor [employer]terial [facility] ([place] [address] Lab) Email: [email or web address] Reason for Visit Auth/Cert Status Reason Specialty Diagnoses / Procedures Referred By Contact Referred To Contact Diagnoses Right foot ischemia, ulceration Kristin Fernando MD [address] Room [address] [place] [address] Email: [email or web address] Encounter Details Date Type Department Care Team Description 08/28/2019 - Hospital Encounter 08G CARDIOTHORACIC Kristin Fernando PAD (peripheral artery disease) (Primary Dx); 09/03/2019 [address] MD PVD (peripheral vascular disease); [place], [place] [address] Ischemic ulcer, limited to breakdown of skin; [id number] Diagnosis unknown Room [facility] [place] [address] [phone] Allergies No Known Allergiesdocumented as of this encounter (statuses as of 09/03/2019) Medications Medication Sig Dispensed Refills Start Date End Date Status atorvastatin Take 40 mg 0 Active (LIPITOR) 40 MG by mouth tablet daily lisinopril Take 40 mg 0 Active (PRINIVIL,ZESTRIL) by mouth 40 MG tablet daily amlodipine Take 2.5 mg 0 Active (NORVASC) 2.5 MG by mouth Two tablet Times Daily aspirin 81 MG Take 81 mg 0 Active tablet by mouth every evening pantoprazole Take 20 mg 0 Active (PROTONIX) 20 MG by mouth tablet daily allopurinol Take 300 mg 0 Active (ZYLOPRIM) 300 MG by mouth tablet daily as directed. gabapentin Take 300 mg 0 Active (NEURONTIN) 300 MG by mouth capsule Three times daily latanoprost Place 1 drop 0 08/07/2017 Active (XALATAN) 0.005 % into both ophthalmic solution eyes nightly acetaminophen Take 500 mg 0 Active (TYLENOL) 500 MG by mouth tablet every 6 (six) hours as needed for Pain indomethacin Take 75 mg 3 02/05/2019 Active (INDOCIN SR) 75 MG by mouth CR capsule daily with food or milk. Chlorthalidone 25 Take 25 mg 0 08/18/2019 Active MG Oral Tablet by mouth (HYGROTON) daily PreserVision AREDS Take 1 0 Active 2 Oral Capsule capsule by mouth daily Collagenase 250 To right 15 g 0 09/03/2019 Active UNIT/GM External foot toe 0 Ointment (SANTYL) ulcer daily Tab-A-Marcelo/Beta Take 1 30 tablet 0 09/04/2019 Active Carotene Oral tablet by Tablet mouth daily oxyCODONE HCl 5 MG Take 1 12 tablet 0 09/03/2019 Active Oral Tablet tablet by 0 (ROXICODONE) mouth every 6 (six) hours as needed for up to 3 days, Max Daily Dose: 20 mg Rivaroxaban 2.5 MG Take 1 60 tablet 5 09/03/2019 Active Oral Tablet tablet by (XARELTO) mouth Two Times Daily Cyanocobalamin Take 1,000 0 Discontinued (VITAMIN B 12 PO) mg by mouth 0 (Medication Two Times Reconcilation) Daily ferrous sulfate 325 Take 325 mg 0 Discontinued (65 FE) MG tablet by mouth 0 (Medication Three times Reconcilation) daily with meals colchicine 0.6 MG Take 0.6 mg 0 Discontinued tablet by mouth Two 0 (Medication Times Daily Reconcilation) Ascorbic Acid Take 1,000 0 Discontinued (VITAMIN C PO) mg by mouth 0 (Medication every Reconcilation) morning Multiple Take 2 0 Discontinued Vitamins-Minerals tablets by 0 (Medication (PRESERVISION AREDS mouth Reconcilation) 2 PO) nightly documented as of this encounter (statuses as of 09/03/2019) Active Problems Problem Noted Date Alcohol abuse 08/28/2019 Overview: 6 beers per day PAD (peripheral artery disease) 07/29/2019 Atherosclerotic PVD with ulceration 10/24/2016 PVD (peripheral vascular disease) 01/30/2015 Current smoker 10/29/2014 Hyperlipidemia 10/29/2014 Hypertension 10/29/2014 Critical ischemia of lower extremity 10/29/2014 Ischemic ulcer 10/27/2014 documented as of this encounter (statuses as of 09/03/2019) Social History Tobacco Use Types Packs/Day Years [...] Sign Reading Time Taken Comments Blood Pressure 134/51 09/03/2019 8:00 AM EST Pulse 87 09/03/2019 8:00 AM EST Temperature 36.6 09/03/2019 8:00 AM EST C (97.9 F) Respiratory Rate 14 09/03/2019 8:00 AM EST Oxygen Saturation 93% 09/03/2019 8:00 AM EST Inhaled Oxygen Concentration - - Weight 87 kg (191 lb 12.8 oz) 09/02/2019 7:00 AM EST Height 172.7 cm (5' 8") 08/28/2019 8:47 PM EST Body Mass Index 29.16 08/28/2019 8:47 PM EST documented in this encounter Discharge Instructions Patient InstructionsRosalinda Landis PA - 08/26/2019 10:18 AM EST PRE-ANESTHESIA INSTRUCTIONS Tentative Date: 08/28/2019 Tentative Arrival Time: noon Take medications morning of surgery with a few sips of water/clear liquid [employer]POSITOR Medications Medication Sig Pre-Anesthesia Instructions for Medications acetaminophen (TYLENOL) 500 MG tablet Take 500 mg by mouth every 6 (six) hours as needed forPain Continue as prescribed allopurinol (ZYLOPRIM) 300 MG tablet Take 300 mg by mouth every morning Continue as prescribed - TAKE MORNING OF SURGERY amlodipine (NORVASC) 2.5 MG tablet Take 2.5 mg by mouth Two Times Daily Continue as prescribed - TAKE MORNING OF SURGERY aspirin 81 MG tablet Take 81 mg by mouth every evening Call Surgeon for instructions atorvastatin (LIPITOR) 40 MG tablet Take 40 mg by mouth every morning Continue as prescribed- TAKE MORNING OF SURGERY Chlorthalidone 25 MG Oral Tablet (HYGROTON) Take 25 mg by mouth every morning Continue as prescribed - NOT TO BE TAKEN DAY OF SURGERY gabapentin (NEURONTIN) 300 MG capsule Take 300 mg by mouth Three times daily Continue as prescribed - TAKE MORNING OF SURGERY indomethacin (INDOCIN SR) 75 MG CR capsule Take 75 mg by mouth every morning Call Surgeon for instructions latanoprost (XALATAN) 0.005 % ophthalmic solution Place 2 drops into both eyes every eveningContinue as prescribed lisinopril (PRINIVIL,ZESTRIL) 40 MG tablet Take 40 mg by mouth every morning Continue as prescribed - NOT TO BE TAKEN DAY OF SURGERY Multiple Vitamins-Minerals (PRESERVISION AREDS 2 PO) Take 2 tablets by mouth nightly Continue as prescribed - NOT TO BE TAKEN DAY OF SURGERY pantoprazole (PROTONIX) 20 MG tablet Take 20 mg by mouth every morning Continue as prescribed - TAKE MORNING OF SURGERY ADULT AND CHILDREN 12 years old and older: These instructions apply to food and liquids by mouth andfeeding tube. Stop solid food 8 hours before your scheduled arrival at hospital (This includes gum and candies) Stop all clear liquids 2 hours before your scheduled arrival at hospital. Examples of Approved Clear Liquids for Children: water or ice,clear juices ( apple, grape, cranberry), Kee-Aid, plain Jello, plain popsicles, and balanced electrolyte solution (Pedialyte). Examples of Approved Clear Liquids for Adults: Water or ice, apple juice, bogdan luanne, non-red and non-purple Gatorade or Powerade. NOTHING ELSE, NO SUBSTITUTIONS! Examples of solids include: pureed solids, milk, formula, gum, candy, lozenges, pulp juices, nectars, or any liquid you cannot see through. PATIENTS WITH DIABETES PLEASE NOTE: Please check your sugar level the morning of your procedure. If you are having a low blood sugar attack (sweating, fatigue, light-headedness ) the morning of yoursurgery, please check your sugar level. You may take glucose tablets and/or clear juices such as apple, grape, or cranberry. Do not take juices you cannot see through such as orange or tomato juice.Do not eat solid food. If you are taking Motrin, Advil, Ibuprofen, or other anti-inflammatories, call your surgeon for specific instructions regarding stopping them prior to surgery. You may take Tylenol (acetaminophen) for pain. No alcohol, vitamins and supplements, illegal drugs or smoking 24 hours before surgery. Call your surgeon if you are sick, have a cold or fever. Make arrangements to have a responsible adult drive you home after surgery. Wear comfortable clothes, no valuables, remove all jewelry and piercing, no makeup or nail taiwanese. Do not use oil, lotion or powder on your skin before coming for your procedure. You will meet with your Anesthesiologist the day of your surgery. The Night before Your Procedure: You should receive a phone call the business day before (Monday for Monday procedures) between 3 and6 PM to confirm your arrival time the next day, as any time given to you before this was only tentative. To finalize your arrival time for your procedure, and if you have not heard from : Adult Operating Room (5E) will only call you if your arrival time has changed. If you have anyquestions, please call The Day of Your Procedure: Please park in the East Garage. Patient and Visitor parking is located on the 1st and 2nd floors of the garage. The garage accepts both ragland and credit cards for payment of parking fees. There also is an ELENA located in the Main Lobby. Speech Language Therapist Parking - Speech Language Therapist Parking is available in the Hospital front comanche for an additional $5.00 on top of regular parking fees. 1st floor - If you park on the 1st floor of the garage, please walk across [facility] and enter through the Main Hospital entrance. Walk past the Visitor check in and go to the Registration desk on the right, where you will be registered for your procedure and your family will get their visitor passes. All adults need to provide photo ID. You will then be told where to go for your procedure. 2 nd floor - If you park on the 2nd floor of the garage, please walk across bridge over [facility]. Do NOT go to the Visitor checking in on the 2nd floor. Take either the stairs or the elevator to yourright and go down to the 1st floor Main Lobby. Walk past the Visitor check in and go to the Registration desk on the right, where you will be registered for your procedure and your family will get their visitor passes. All adults need to provide photo ID. You will then be told where to go for yourprocedure. 5E Fast Pass Patients: Directions to 5E Pre-Surgical Care Waiting Room For patients seen in Pre-admission testing, attach your 5E Visitor Pass prior to coming to the hospital. Be sure the 5E Visitor pass is visible and you may bypass visitor check in and registration. Main elevators to 5th Floor Exit the elevator and take a right out of the elevator, then take another right and go straightdown Hallway E Continue down the urena approximately 50 feet on the left hand side to the Surgical Care WaitingArea Sign in at the Registration/Client Service Professional Desk Call Ambassador Services between 7:30am - 8:00PM. if you need more assistance Discharge Instr - Other Denisse Hagan NP - 09/03/2019 8:59 AM ESTLeg Bypass discharge intructions It is important to follow the instructions listed below to prevent possible problems after surgery and minimize any discomfort. If you have any questions or problems, please call our office, [facility] at: [phone] [phone]) Please call the appropriate office location when you get home to schedule a 2- week appointment for reevaluation. Medications ? You will be given a prescription for pain medication. Follow the instructions provided on how to take it. ? You should resume your regularly prescribed medications unless your provider has specifically instructed you not to. ? You may also be prescribed a medication to thin your blood. This is to prevent your bypass site from closing. Diet ? You may resume your regular diet as tolerated. ? Your appetite may be decreased after surgery, but will gradually improve. ? It is important to eat sufficient amounts of protein daily to help your incisions heal. Activity ? No vigorous exercise or heavy housework. Avoid frequent bending or lifting over 5 pounds for 2 weeks. ? Walking is encouraged. Walk short distances several times a day, gradually increasing the distanceyou walk daily. ? You will tire easily with activity. Your energy levels will improve gradually as you heal. Rest when you are tired. ? When resting, lay down with your legs elevated above the level of your heart. Use pillows for this, and put them under your lower legs to keep your knees bent and your heels lifted. ? Avoid sitting with your legs hanging down for long periods of time. Elevate your operative leg when sitting. ? If your leg swelling is increasing, you are doing too much walking, standing or sitting. You must elevate your leg more often. ? You may climb stairs. Use the good leg first when going upstairs and the operated leg first when going down. Go up a few steps, stop and rest if needed. ? No driving for 2 weeks or until you are told you may resume driving. You may ride in car. If possible, ride in the back, resting your operative leg on the seat. Incision Care ? You may shower. ? Wash the incisions gently with soap and water and rinse thoroughly. ? Do not rub or scrub the incisions. ? Wash gently with soap and water, pat dry, cover with dry gauze to keep area clean and dry and freeof moisture or irritation. ? Do not soak in a tub bath, hot tub, or go swimming until your doctor has told you the incisions are healed. ? Do not apply any creams, lotions, ointments or powders on or around the incisions unless prescribed by your doctor. ? Wear loose fitting clothing that wont irritate your incisions. Normal Expectations ? Some swelling, tenderness and bruising around the incisions. ? Slight swelling in the operative leg. ? Slight bleeding at the incision sites. ? Mild pain in the leg, groin and the incision sites. ? Tingling, burning, and numbness along the incisions and down the front of the calf. These are nerves healing after surgery and should resolve over 6 12 months. When to Call the Office ? Increasing redness, warmth or pain at the incision site. ? Severe bleeding or drainage from incisions. ? Chills and/or fever greater than 102 F ? If your leg suddenly becomes more painful, cold or numb, turns pale or bluish in color. Protecting Your Bypass To protect your bypass graft, it is important to control certain risk factors. The risk factors thatyou can control include: ? Smoking ? Obesity ? Diabetes ? High Cholesterol ? High blood pressure Call to make or change a follow up appointment: ? [facility]: [phone] ? [facility]: [phone] ? Satellite Offices: [facility] Right foot toe ulcer: Apply Santyl and dry sterile gauze to ulcer on toe daily. documented in this encounter Progress Notes Vianca Hernandez RN - 09/03/2019 10:37 AM ESTReviewed AVS with pt. At bedside. Demonstrated how to do dressing change. Pt. Feels comfortable since he did it with shift boss RN as well. Supplies sent with pt. Removed PIV. [facility] Vianca Hernandez RN at 09/03/2019 10:39 AM Vlad Iyer MD - 09/03/2019 7:01 AM EST Vascular Surgery Progress Note Micah Walters 73 y.o. POD: 4 Days Post-Op S/P: 08/31/2018: thrombectomy of RLE fem pop bypass X 2, aortogram and right external iliac artery angioplasty/stent, RLE angiogram. 08/28/2019: right femoral to popliteal artery bypass with propaten graft Subjective: HPI: 73 y.o. male with a PMH significant for HTN, Tobacco use, ETOH abuse, HLD and PAD with right 5th toe ulcer. He is now s/p right femoral to popliteal artery bypass with Propaten graft. He noted to have some diminished pulses to RLE and an arterial ultrasound was obtained POD 2 which demonstrated no arterial flow in distal PT suggesting occlusion. He returned to the OR and underwent a thrombectomyof RLE fem pop bypass X 2, aortogram and right external iliac artery angioplasty/stent and RLE angiogram showing popliteal artery occlusion distal to distal anastomosis No acute overnight events. Arterial duplex and RLE CTA demonstrates occulsion of graft with significant calcification distally. Ordered vein mapping to assess for possibility of repeat bypass using vein graft but study not performed yet. Denies CP, pressure, SOB abdominal pain nausea or vomiting, I/O: Intake/Output Summary (Last 24 hours) at 09/03/2019 0701 Last data filed at 09/03/2019 0350 Gross per 24 hour Intake 1953.6 ml Output 350 ml Net 1603.6 ml IV Access Peripheral IV 08/28/19 Right Hand Peripheral IV 08/28/19 Right Antecubital Scheduled Meds: acetaminophen (TYLENOL) tablet 650 mg Oral Q6H allopurinol 300 mg Oral QAM amlodipine 2.5 mg Oral BID aspirin 81 mg Oral QPM atorvastatin 40 mg Oral QAM collagenase Topical Daily folic acid 1 mg Oral Daily gabapentin 300 mg Oral TID sodium chloride (preservative free) 10 mL Intravenous Q12H And heparin lock flush 20 Units Intravenous Q12H latanoprost 2 drop Both Eyes QPM lisinopril 40 mg Oral QAM multivitamin 1 tablet Oral Daily pantoprazole 20 mg Oral QAM thiamine 100 mg Oral Daily Continuous Infusions: heparin (porcine) in NaCl 1,800 Units/hr (09/03/19 0350) PRN Meds:.sodium chloride (preservative free) AND heparin lock flush AND* * sodium chloride (preservative free) AND heparin lock flush, lidocaine, lidocaine, ondansetron, oxyCODONE OR oxyCODONE Telemetry: SR Physical Exam: Vitals: Visit Vitals BP 142/55 Pulse 91 Temp 36.6 C (97.9 F) (Oral) Resp 17 Ht 1.727 m (5' 8") Wt 87 kg (191 lb 12.8 oz) SpO2 91% BMI 29.16 kg/m Exam: General: Alert, pleasant, in NAD CV: RRR Lungs: CTA b/l no wheezes, rales, crackles or rhonchi Abd: Soft, non-tender, non-distended, positive bowel sounds, no masses Extremities: All dressings changed today. Right groin and medial thigh incisions clean intact, no drainage or surrounding erythema. Right toe with dry ulcer. No erythema noted. LLE warm perfused. Pulses:RLE AT/PT monophasic, LLE AT/PT biphasic, left femoral and cross femoral graft signal audible Neuro: AAOx3, speech is clear, answers questions appropriately Labs, Imaging, and other Diagnostics: Diagnostic tests reviewed for today's visit. SCIP Measures: Antibiotics: discontinued post op Ramos: discontinued DVT prophylaxis: Heparin drip Beta Steven: none Assessment and Plan: Principal Problem: Atherosclerotic PVD with ulceration Active Problems: Hyperlipidemia Hypertension PAD (peripheral artery disease) Alcohol abuse 1. PAD with right 5th toe ulcer: - s/p revascularization, with return to OR for thrombectomy - monophasic RLE AT/PT, foot warm pink - Will follow up results of venous US - All dressings changed today - continue Heparin infusion - santyl to right 5th toe ulcer - OOB PT, OT, Incentive spirometer, pain control, Neurontin ASA 2. HTN: - BP well controlled - continue Lisinopril Norvasc - chorthalidone held 3. HLD: - Lipitor - low fat diet 4. ETOH abuse: - [facility] protocol - MVI, Thiamine, Folic acid - currently scoring 0 5. AHD: full code 6. ADOD: unknown pending progress with PT, I saw and evaluated the patient. Discussed with the resident and agree with the residents findings and above plan along with any supplemental dictated and/ or attending documentation in the patient record by myself. I reviewed his pre op angio and CTA. His bypass graft is down and his outflow is poor. He has very calcified tibial vessels and a distal bypass would be very challenging. In discussion with Dr. Prajapati is in agreement will obtain vein mapping and have him fu with her outpt this month to see if anyfurther intervention can be offered. He is assymptomatic and anxious to go home. Will resume his home AC Vlad Reyez MD, [facility] Department of Vascular Surgery [facility] pilot boat captain Vlad Lorenzana, PT - 09/02/2019 10:31 AM ESTPhysical Therapy Acute Care Treatment Note Medical Diagnosis: Right foot ischemia, ulceration Atherosclerotic PVD with ulceration s/p Procedure(s): 08/28/19 FEMORAL BELOW KNEE POPLITEAL bypass graft, prosthetic graft s/p Procedure(s): 08/31/19 Thrombectomy of fem-pop bypass x2, aortagram and right external illiac artery angioplasty stent, right lower extremity angiogram- per Dr. Campos Rehabilitation Precautions/Restrictions: Full code, moderate fall risk, out of bed as tolerated Goal Review Visit Number: 3 SUBJECTIVE Patient Report: Pt agrees to participate with PT Pain: Patient currently complains of pain. Location: right LE . Patient describes pain as Nonspecific. Verbal Scale: Patient reports a pain level of 7 out of 10. Location #2: right hip . Patient describes pain as Nonspecific. Verbal Scale: Patient reports a pain level of 4 out of 10. Pain Medication Today: yes. OBJECTIVE General Observation: Supine in bed with head of bed slightly elevated in no apparent distress, PIV, pulse oximeter, cardiac monitor technician, denies lightheadedness or dizziness No bed alarm noted at start of session. Vital Signs: Heart Rate: 99 beats per minute Blood Pressure: 137/51 mm Hg Range of Motion:No change observed. Strength:No change observed. Skin Integrity Screen: All visible skin intact, surgical dressing to right medial thigh. Functional Status: Transfers: Transfers were not assessed at this time. Bed Mobility: Not assessed. Locomotion/Wheelchair: Not assessed. Locomotion/Gait/Ambulation: Not assessed. Stairs: Not assessed. Outcome Measures: [facility] AM-PAC "6 Clicks" Basic Mobility Inpatient Short Form: Turning over in bed: A little difficulty (3) Sitting down on and standing up from a chair with arms: A little difficulty (3) Moving from lying on back to sitting on the side of the bed: A little difficulty (3) Moving to and from a bed to a chair (including a wheelchair): A little help (3) Walking in hospital room: A little help (3) Climbing 3-5 steps with a railing: A little help (3) Raw Score 18 /24. Interventions: Therapeutic Exercise: Pt instructed to perform single knee to chest, ankle pumps, glute sets, quad sets, and straight leg raises. Pt required verbal cues for proper muscle activation, proper form, proper breathing technique, and to ensure appropriate parameters. Pt required rest breaks between exercises secondary to LE muscle fatigue and pain. Education: Mode of education provided: Demonstration. Explanation. Audience: Patient. Nurse. Education Provided: Safe mobility. Treatment plan. Range of motion exercises. Importance of activity. Mobility Techniques. Role of Physical Therapy. Response: Applied knowledge. Indicates understanding. Needs practice/reinforcement. ASSESSMENT Response to Visit: The session was tolerated fair, as evidenced by: Pain unchanged. Patient reported fatigue Patient demonstrated good exercise technique. Call khan was in patient's reach at end of session. Pain: Yes, pain is unchanged from start of today's treatment. Goal review: Pt continues to progress towards ambulating with at least modified independence utilizing least restrictive assistive device Changes in or Continuation of Plan of Care: Patient will benefit from continued therapy to achieve planned goals. PLAN Treatment Frequency, Duration and Interventions: Restorative Physical Therapy is recommended for 5 times per week for 3 weeks Treatment is to include: Gait Training. Manual Therapy. Neuromuscular Re-education. Therapeutic Activity. Therapeutic Exercise. Self Care/Home Management. Pt will continue to benefit from skilled PT services to optimize functional mobility Equipment Provided: None issued this visit. Equipment Recommended: To be assessed. Recommended Physical Therapy Follow Up: Upon acute care discharge, the following is currently recommended: Anticipate home with family assistance and Home PT pending progress Recommended Consults: None currently. Development of Plan of Care: Participants included: pt. There was no change to plan of care today. Visit Number: Today's visit is number 3 Program: General Medicine (Therapist may be reached on Vocera) SESSION: Duration: 23 CHARGES: - ORDER - Physical Therapy Treatment 1 Units 45222 - CHARGE - PT THER EX - 15 MIN 2 Units - GENERAL MEDICINE VISIT 1 Units Total treatment minutes: 23.00 Minutes Electronically Signed by: Vlad Iglesias Jr, PT, DPT, 09/02/2019 10:44:09 AM Denisse Soria RUG SHAMPOOER - 09/02/2019 9:46 AM EST Vascular Surgery Progress Note Micah Walters 73 y.o. POD: 3 Days Post-Op S/P: 08/31/2018: thrombectomy of RLE fem pop bypass X 2, aortogram and right external iliac artery angioplasty/stent, RLE angiogram. 08/28/2019: right femoral to popliteal artery bypass with propaten graft Subjective: HPI: 73 y.o. male with a PMH significant for HTN, Tobacco use, ETOH abuse, HLD and PAD with right 5th toe ulcer. He is now s/p right femoral to popliteal artery bypass with Propaten graft. He noted to have some diminished pulses to RLE and an arterial ultrasound was obtained POD 2 which demonstrated no arterial flow in distal PT suggesting occlusion. He returned to the OR and underwent a thrombectomyof RLE fem pop bypass X 2, aortogram and right external iliac artery angioplasty/stent and RLE angiogram showing popliteal artery occlusion distal to distal anastomosis Patient seen this am, lying in bed reports some numbness to right leg but otherwise no new complaints. Dressings changed, monophagic distal signals noted to RLE. Plan for repeat arterail duplex of RLE this am. Denies CP, pressure, SOB abdominal pain nausea or vomiting, I/O: Intake/Output Summary (Last 24 hours) at 09/02/2019 0946 Last data filed at 09/02/2019 0541 Gross per 24 hour Intake 1965.09 ml Output 1125 ml Net 840.09 ml IV Access Peripheral IV 08/28/19 Right Hand Peripheral IV 08/28/19 Right Antecubital Scheduled Meds: acetaminophen (TYLENOL) tablet 650 mg Oral Q6H allopurinol 300 mg Oral QAM amlodipine 2.5 mg Oral BID aspirin 81 mg Oral QPM atorvastatin 40 mg Oral QAM collagenase Topical Daily folic acid 1 mg Oral Daily gabapentin 300 mg Oral TID sodium chloride (preservative free) 10 mL Intravenous Q12H And heparin lock flush 20 Units Intravenous Q12H latanoprost 2 drop Both Eyes QPM lisinopril 40 mg Oral QAM multivitamin 1 tablet Oral Daily pantoprazole 20 mg Oral QAM thiamine 100 mg Oral Daily Continuous Infusions: heparin (porcine) in NaCl 1,700 Units/hr (09/02/19 0541) PRN Meds:.sodium chloride (preservative free) AND heparin lock flush AND* * sodium chloride (preservative free) AND heparin lock flush, lidocaine, lidocaine, ondansetron, oxyCODONE OR oxyCODONE Telemetry: SR Physical Exam: Vitals: Visit Vitals BP 133/51 (BP Location: Left arm, Patient Position: Lying) Pulse 100 Temp 36.7 C (Oral) Resp 16 Ht 1.727 m Wt 87 kg (191 lb 12.8 oz) SpO2 94% BMI 29.16 kg/m Exam: General: Alert, pleasant, in NAD CV: RRR S1S2, no murmur, rub, or gallop Lungs: CTA b/l no wheezes, rales, crackles or rhonchi Abd: Soft, non-tender, non-distended, positive bowel sounds, no masses Extremities: Right groin and medial thigh incisions clean intact, no drainage or surrounding erythema. Right toe with dry ulcer. No erythema noted. LLE warm perfused. Pulses:RLE AT/PT monophasic, LLE AT/PT biphasic, left femoral and cross femoral graft signal audible Neuro: AAOx3, speech is clear, answers questions appropriately Labs, Imaging, and other Diagnostics: Diagnostic tests reviewed for today's visit. SCIP Measures: Antibiotics: discontinued post op Ramos: discontinued DVT prophylaxis: Heparin drip Beta Steven: none Assessment and Plan: Principal Problem: Atherosclerotic PVD with ulceration Active Problems: Hyperlipidemia Hypertension PAD (peripheral artery disease) Alcohol abuse 1. PAD with right 5th toe ulcer: - s/p revascularization, with return to OR for thrombectomy - monophasic RLE AT/PT, foot warm pink - RLE arterial duplex ordered - continue Heparin infusion - santyl to right 5th toe ulcer - OOB PT, OT, Incentive spirometer, pain control, Neurontin ASA 2. HTN: - BP well controlled - continue Lisinopril Norvasc - chorthalidone held 3. HLD: - Lipitor - low fat diet 4. ETOH abuse: - [facility] protocol - MVI, Thiamine, Folic acid - currently scoring 0 5. AHD: full code 6. ADOD: unknown pending progress with PT, Plan was discussed with the Attending and any changes to the plan will be per the Attending. Denisse Olivarez NP-C Vascular Surgery September 02, 2019 9:46 AM Na Torres RN - 09/01/2019 1:05 PM ESTVascular Access Team: At bedside to place PICC. Patient states a doctor was just at his bedside stating he may not need the surgery he thought he was going to have. The decision has not been finalized until the doctor confirms it with Dr. Fernando. Patient does not want a PICC if he doesn't need it and would like to hold off until the decision on the surgery has been made. Dustin Redman, bedside RN, gloriaand will update VAT with information as it becomes available. Na Torres RN - 09/01/2019 10:41 AM ESTVascular Access Team: Called Dr Licona, who is scrubbed in the OR at this time, and agrees the patient can have a PICC placed instead of a midline. Will wait to start the procedure until orders are entered. Consent obtained by Tai Mccray RN [facility]. Bedside RNDustin aware. Haritha Piage RN - 07/2020 7:00 AM ESTFoley removed at 0600. Patient due to void Korin Loyola DO - 2019 9:14 PM ESTBrief Note Approximately at 20:00 was notified of weaker right lower extremity pulses. Went to bedside to assess. Right Lower Extremity Posterior tibialis: biphasic, faint Dorsalis pedis: biphasic, faint Left Lower Extremity Dorsalis pedis, posterior tibialis, peroneal all triphasic and easily dopplered Will continue to closely monitor Korin Barrera PGY-1 Haritha Paige RN - 08/31/2019 8:01 PM ESTTimes approximated; 1935; Received report from offgoing RN. Went into pt room to doppler pulses and check heparin drip. Dorsalis pedis pulse was more faint than on my previous shift. Posterior tibial pulse was also more faint. Notified Korin Barrera, PGY- 1 OBatyLenora roque RN - 08/31/2019 5:31 PM ESTAt 1330 unfractionated level resulted 0.17 , heparin drip up to 24 ml/hr or 1200 unit per policy. Next blood draw at 2130. Call khan in reach, will be monitoring. Haritha Paige RN - 08/31/2019 3:31 AM ESTPatient received from PACU via stretcher. Patient drowsy but oriented, complaining of 8/10 pain, dressings over incisions intact. Patient was transferred to bed via slide board, vital signs are stable (pt is tachycardic), lower extremity pulses were dopplered with off going RN. Dorsalis pedis pulse was very faint but dopplerable. Per PAPETERIE TABLE ASSEMBLER, they were not able to locate a dorsalis pedis pulse in theOR. Posterior tibial pulse was dopplerable. Incision site by the patient's knee had some serosanguinous drainage noted, traced with a sharpie. Heparin was supposed to be restarted at 0300. Patient's unfractionated heparin came back at 1.40. . eparin infusion held until at least 0600 when next unfractionated will be drawn. Patient did not receive evening meds. These meds will be held for the evening and the patient will receive his next scheduled dose of these medications in the morning. Pulses, medications, and unfractionated heparin level were all discussed and reviewed with Korin Barrera, PGY-1. Marcelino Saucedo RN - 08/30/2019 12:56 PM [id number]: This web content writer and Haritha MARIA at bedside to check pulses with doppler. RLE is cool, and monophasic pulses are present. Denisse Olivarez RUG SHAMPOOER notified and team aware. 0815: Patient transported to vascular lab for US doppler study. Xarelto held per order, pt Okay to travel off monitor. 0900: Patient done with breakfast prior to NPO order. 0930: Dr. Campos at bedside. Plan for patient to go to OR this afternoon (~5pm) . Low dose, no bolus heparin drip to be started. 1645: Patient transported to PACU. Nose to toes and pre op checklist complete. Chart w/ patient. IV cefazolin sent with patient. Vlad Lorenzana PT - 08/30/2019 9: 45 AM ESTPhysical Therapy Acute Care Encounter Note Medical Diagnosis: Right foot ischemia, ulceration Atherosclerotic PVD with ulceration s/p Procedure(s): 08/28/19 FEMORAL BELOW KNEE POPLITEAL bypass graft, prosthetic graft Rehabilitation Precautions/Restrictions: Full code, moderate fall risk, out of bed as tolerated Goal Review Visit Number: 2 SUBJECTIVE Patient Report: Pt agrees to participate with PT Pain: Patient currently complains of pain. Location: right LE . Patient describes pain as Nonspecific. Verbal Scale: Patient reports a pain level of 7 out of 10. Pain Medication Today: yes. OBJECTIVE General Observation: Supine in bed with head of bed slightly elevated in no apparent distress, PIV, pulse oximeter, cardiac monitor technician, denies lightheadedness or dizziness. No bed alarm noted at start of session. Skin Integrity Screen: All visible skin intact, surgical dressing to right medial thigh. Vital Signs: Heart Rate: 88 beats per minute Functional Status: Transfers: Sit<>stand with stand by assistance utilizing rolling walker Bed Mobility: Supine<>sit independently Locomotion/Gait/Ambulation: Patient was stand by assist with gait/ambulation for 75 ft . Patient requires the following assistive device(s): Rolling walker. Decreased luzmaria, foot clearance, step length, stride length, downward gaze Stairs: Not assessed. Outcome Measures: [facility]-PAC "6 Clicks" Basic Mobility Inpatient Short Form: Turning over in bed: A little difficulty (3) Sitting down on and standing up from a chair with arms: A little difficulty (3) Moving from lying on back to sitting on the side of the bed: A lot of difficulty (2) Moving to and from a bed to a chair (including a wheelchair): A little help (3) Walking in hospital room: A little help (3) Climbing 3-5 steps with a railing: A little help (3) Raw Score 17 /24. Interventions: Gait Training: Pt required verbal cues for proper hand placement onto assistive device, proper management of assistive device, proper LE positioning to ensure optimal base of support, proper muscle activation to ensure upright standing posture and to promote increased step length, proper self pacing and deep breathing to ensure acceptable oxygen saturation is maintained. Pt required seated rest break during ambulation secondary to LE muscle fatigue. Therapeutic Activities: Pt required verbal cues for proper hand placement onto assistive device, proper management of assistive device, proper LE positioning to ensure optimal base of support, proper muscle activation to ensure upright standing posture and to promote increased step length, proper self pacing and deep breathing to ensure acceptable oxygen saturation is maintained. Pt required seated rest break during ambulation secondary to LE muscle fatigue. Education: Mode of education provided: Demonstration. Explanation. Audience: Patient. Nurse. Education Provided: Safe mobility. Treatment plan. Range of motion exercises. Importance of activity. Mobility Techniques. Role of Physical Therapy. Response: Applied knowledge. Indicates understanding. Needs practice/reinforcement. ASSESSMENT Response to Visit: The session was tolerated fair, as evidenced by: Pain unchanged. Patient reported fatigue Call khan was in patient's reach at end of session. Pain: Yes, pain is unchanged from start of today's treatment. PLAN Treatment Frequency, Duration and Interventions: Restorative Physical Therapy is recommended for 5 times per week for 3 weeks Treatment is to include: Gait Training. Manual Therapy. Neuromuscular Re-education. Therapeutic Activity. Therapeutic Exercise. Self Care/Home Management. Pt will continue to benefit from skilled PT services to optimize functional mobility Recommended Physical Therapy Follow Up: Upon acute care discharge, the following is currently recommended: Home with family assistance and OP PT Equipment Provided: None issued this visit. Visit Number: Today's visit is number 2 Program: General Medicine (Therapist may be reached on Vocera) SESSION: Duration: 25 CHARGES: - ORDER - Physical Therapy Treatment 1 Units 55710 - CHARGE - PT GAIT TRNG - 15 MIN 1 Units 21902 - CHARGE - PT THERAPEUTIC ACTIVITIES - 15 MIN 1 Units - GENERAL MEDICINE VISIT 1 Units Total treatment minutes: 25.00 Minutes Electronically Signed by: Vlad Iglesias Jr, PT, DPT, 08/30/2019 3:57:22 PM Margoth Leon PharmD - 08/30/2019 9:38 AM EST Inpatient Pharmacy Medication History Review Micah Walters's medication history was completed by a medication history fire protection engineering technician and independently reviewed by myself. Medications Prior to Admission Medication Sig acetaminophen (TYLENOL) 500 MG tablet Take 500 [...] (HYGROTON) Take 25 mg by mouth daily gabapentin (NEURONTIN) 300 MG capsule Take 300 mg by mouth Three times daily indomethacin (INDOCIN SR) 75 MG CR capsule Take 75 mg by mouth daily with food or milk. latanoprost (XALATAN) 0.005 % ophthalmic solution Place 1 drop into both eyes nightly lisinopril (PRINIVIL,ZESTRIL) 40 MG tablet Take 40 mg by mouth daily pantoprazole (PROTONIX) 20 MG tablet Take 20 mg by mouth daily PreserVision AREDS 2 Oral Capsule Take 1 capsule by mouth daily Medication History Source: [employer] [address] [place] [id number] Notes to Provider: 1. Home meds note resumed inpatient: chlorthalidone, indomethacin, and PreserVision. Consider restarting inpatient if / when clinically appropriate. Of note, if team would like to resume PreserVision, this medication is a non- formulary. Thank you, Margoth Fleming, PharmD, BCPS, BCGP Of note: Medication history was completed based on information available during this patient encounter, the list above may not be all inclusive. Denisse Soria RUG SHAMPOOER - 08/30/2019 9:34 AM EST Vascular Surgery Progress Note Micah Walters 73 y.o. POD: 2 Days Post-Op S/P: 08/28/2019: right femoral to popliteal artery bypass with propaten graft Subjective: HPI: 73 y.o. male with a PMH significant for HTN, Tobacco use, ETOH abuse, HLD and PAD with right 5th toe ulcer. He is now s/p right femoral to popliteal artery bypass with Propaten graft. Seen this am,lying in bed, right foot cooler than left with diminished signals. RLE arterial duplex ordered showing no arterial flow in distal PT suggesting occlusion, cross femoral bypass patient. Heparin infusion ordered, NPO, plan for RLE thrombectomy today. Denies CP, pressure, SOB abdominal pain nausea or vomiting, I/O: Intake/Output Summary (Last 24 hours) at 08/30/2019 0934 Last data filed at 08/30/2019 0400 Gross per 24 hour Intake 360 ml Output 1200 ml Net -840 ml IV Access Peripheral IV 08/28/19 Right Hand Peripheral IV 08/28/19 Right Antecubital Scheduled Meds: acetaminophen (TYLENOL) tablet 650 mg Oral Q6H allopurinol 300 mg Oral QAM amlodipine 2.5 mg Oral BID aspirin 81 mg Oral QPM atorvastatin 40 mg Oral QAM collagenase Topical Daily folic acid 1 mg Oral Daily gabapentin 300 mg Oral TID latanoprost 2 drop Both Eyes QPM lisinopril 40 mg Oral QAM multivitamin 1 tablet Oral Daily pantoprazole 20 mg Oral QAM thiamine 100 mg Oral Daily Continuous Infusions: PRN Meds:.ondansetron, oxyCODONE OR oxyCODONE Telemetry: SR Physical Exam: Vitals: Visit Vitals BP 152/63 Pulse 80 Temp 36.4 C (Oral) Resp (!) 11 Ht 1.727 m Wt 83.9 kg (185 lb) SpO2 96% BMI 28.13 kg/m Exam: General: Alert, pleasant, in NAD CV: RRR S1S2, no murmur, rub, or gallop Lungs: CTA b/l no wheezes, rales, crackles or rhonchi Abd: Soft, non-tender, non-distended, positive bowel sounds, no masses Extremities: Right groin and medial thigh incisions clean intact, no drainage or surrounding erythema. Right fool cooler than left. Right 5t toe with dry ulcer. No erythema noted. LLE warm perfused. Pulses:RLE PT faint, LLE PT, faint peroneal audible, left femoral and cross femoral graft signal audible Neuro: AAOx3, speech is clear, answers questions appropriately Labs, Imaging, and other Diagnostics: Diagnostic tests reviewed for today's visit. SCIP Measures: Antibiotics: discontinued post op Ramos: discontinued DVT prophylaxis: Heparin drio Beta Steven: none Assessment and Plan: Principal Problem: Atherosclerotic PVD with ulceration Active Problems: Hyperlipidemia Hypertension PAD (peripheral artery disease) Alcohol abuse 1. PAD with right 5th toe ulcer: - s/p revascularization, - arterial duplex to RLE shows no arterial flow in the distal PT artery suggesting occlusion, right to left cross femoral bypass patent. - Heparin infusion started - plan for RLE thrombectomy today with Dr. Campos. - consent obtained and placed in chart. - NPO, IVF. Type and Cross 2 units, Ancef administration physician to OR - santyl to right 5th toe ulcer - OOB PT, OT, Incentive spirometer, pain control, Neurontin ASA 2. HTN: - BP well controlled - continue Lisinopril Norvasc - chorthalidone held 3. HLD: - Lipitor - low fat diet 4. ETOH abuse: - [facility] protocol - MVI, Thiamine, Folic acid - currently scoring 0 5. AHD: full code 6. ADOD: unknown pending progress with PT, Plan was discussed with the Attending and any changes to the plan will be per the Attending. Denisse Olivarez NP-C Vascular Surgery August 30, 2019 9:34 AM Zulay Eldridge RN - 08/29/2019 12:23 PM ESTCase Management Screen & amp; Assessment Patient's Name: Micah Walters Date of : 1945 Age: 73 y.o. Gender: male Attending Provider: Kristin Fernando MD Admitting Diagnosis: Atherosclerotic PVD with ulceration [I70.209, L98.499] Admission Date and Time: 08/28/2019 11:53 AM High Risk Criteria - MINT WAFER DEPOSITOR/Upon Arrival MINT WAFER DEPOSITOR-Type of Residence: Private residence MINT WAFER DEPOSITOR- Home Care Services: No Limited Home Supports/Lives Alone?: No Multi trauma/Critical care admit?: Yes Head/Spinal cord injury?: No Self pay/No prescription plan?: No Active with homecare?: No Multiple ED visits?: No Related/Unplanned readmission within 30 days?: No Complex/New medical issues: rt foot ischemia Psychosocial considerations: htn, pad, pvd CM Screen Outcome Parasitology Teacher Screen Outcome: Anticipate no Case Management needs for discharge planning Important message (Medicare rights) given?: Yes Date Given: 08/26/19 CM Chart Review Notice of Privacy Practice Signed?: Yes Self Pay: No Prescription Plan?: Yes (comment) Pt. Pharmacy & Phone # : [facility] MINT WAFER DEPOSITOR: Functional/Environmental Assessment Came from Rehab/SNF, plan to return?: No Brief physical/psychosocial summary: patient was independent prior to admission Bathing: Independent Dressing: Independent Toileting: Independent Medication administration: Independent Transfers: Independent Ambulation: Independent Meal preparation: Independent Number of stairs into home: 1 Number of stairs to bathroom: 0 Number of stairs to bedroom: 0 Durable Medical Equipment (DME): Walker, Cane Case Management Review Date CM re-review date needed?: No Discharge Assessment Patient/family informed of need for discharge planning?: Yes Patient expects to be discharged to:: home Actual discharge location : Home-No Needs Has discharge transport been arranged?: No transport arrangement necessary Home with support services reinstated?: No Living Arrangements: Spouse/significant other Support Systems: Spouse/significant other, Children Type of Residence: Private residence Home services arranged?: No Note: Meet with patient to introduce myself and explain my role as CM. Patient was independent prior to admission. Patient has a walker and a cane at home. Patient has been ambulating in the halls. Patient does not expect any discharge needs. CM will continue to follow and assess for discharge needs Zulay Cantuectronically signed by Zulay Cantu RN at 2019 12:26 PM Carlos Wiggins - 08/29/2019 11:28 AM EST Spiritual Care Progress Note School Manager: Chaplain Deja Mapping Engineer Patient Name: Micah Walters Age: 73 y.o. Sex: male Room/Bed: 62714/1 Cassie Affiliation/Tradition: none Admit Date: 08/28/2019 Referrals: Referral From: Rounding On Unit Referral To: School Manager Mapping Engineer Contact Information: vocera Spiritual Care Assessment Spouse/Significant Other Name/Relationship: None present Assessed Need for Visit: Change in Health Status Patient Description: Angry, Anxious Spiritual/Cultural/Social Issues Assessment: I visited Mr. Walters while rounding on the unit. He was partially sitting up in bed. He did not make eye contact. "I'm fine. I don't need anything." He wasnot interested in talking. I provided ministry of presence. Spiritual care remains available to him. Spiritual Care Intervention: Provide Ministry of Presence Spiritual Outcomes - Patient: Expressed feelings Spiritual Outcomes - Family: Not available for assessment Spiritual Care Plan Goal Goal: To assess spiritual care needs and hopes and mobilize spiritual resources for patients/families/caregivers that support/enhance quality of life related to hospitalization. Outcome: gradually improving Spiritual Care Follow Up Follow Up: Routine visit Denisse Soria NP - 08/29/2019 9:49 AM EST Vascular Surgery Progress Note Micah Walters 73 y.o. POD: 1 Day Post-Op S/P: right femoral to popliteal artery bypass with propaten graft Subjective: HPI: 73 y.o. male with a PMH significant for HTN, Tobacco use, ETOH abuse, HLD and PAD with right 5th toe ulcer. He is now s/p right femoral to popliteal artery bypass with Propaten graft. Seen this am,lying in bed, BLE warm complains of some incisional pain to medial knee incision, otherwise no complaints. Denies CP, pressure, SOB abdominal pain nausea or vomiting, I/O: Intake/Output Summary (Last 24 hours) at 08/29/2019 0949 Last data filed at 08/29/2019 0925 Gross per 24 hour Intake 4400 ml Output 3005 ml Net 1395 ml IV Access Peripheral IV 08/28/19 Right Hand Peripheral IV 08/28/19 Right Antecubital Scheduled Meds: acetaminophen (TYLENOL) tablet 650 mg Oral Q6H allopurinol 300 mg Oral QAM amlodipine 2.5 mg Oral BID aspirin 81 mg Oral QPM atorvastatin 40 mg Oral QAM collagenase Topical Daily enoxaparin 40 mg Subcutaneous Daily folic acid 1 mg Oral Daily gabapentin 300 mg Oral TID latanoprost 2 drop Both Eyes QPM lisinopril 40 mg Oral QAM magnesium sulfate 16 mEq Intravenous Once multivitamin 1 tablet Oral Daily pantoprazole 20 mg Oral QAM thiamine 100 mg Oral Daily Continuous Infusions: PRN Meds:.ondansetron, oxyCODONE OR oxyCODONE Telemetry: SR Physical Exam: Vitals: Visit Vitals BP 113/55 (BP Location: Right arm, Patient Position: Lying) Pulse 87 Temp 36.7 C (Oral) Resp (!) 10 Ht 1.727 m Wt 83.9 kg (185 lb) SpO2 97% BMI 28.13 kg/m Exam: General: Alert, pleasant, in NAD CV: RRR S1S2, no murmur, rub, or gallop Lungs: CTA b/l no wheezes, rales, crackles or rhonchi Abd: Soft, non-tender, non-distended, positive bowel sounds, no masses Extremities: Right LE, warm perfused, dressings intact slight bloody drainage noted to distal incision. Movement and sensation intact. Right 5t toe with dry ulcer. No erythema noted. LLE warm perfused. Pulses:RLE AT/Pt audible, LLE PT, faint peroneal audible, left femoral and cross femoral graft signal audible Neuro: AAOx3, speech is clear, answers questions appropriately Labs, Imaging, and other Diagnostics: Diagnostic tests reviewed for today's visit. SCIP Measures: Antibiotics: discontinued post op Ramos: discontinued DVT prophylaxis: Lovenox Beta Steven: none Assessment and Plan: Principal Problem: Atherosclerotic PVD with ulceration Active Problems: Hyperlipidemia Hypertension PAD (peripheral artery disease) Alcohol abuse 1. PAD with right 5th toe ulcer: - s/p revascularization, RLE warm perfused, distal signals. Movement and sensation intact - santyl to right 5th toe ulcer - dc IVF, dc MANUFACTURING MECHANIC, advance diet, dc ramos - OOB PT, OT, Incentive spirometer, pain control, Neurontin ASA - plan for low dose Xarelto (2.5 mg BID) this evening 2. HTN: - BP well controlled - continue Lisinopril Norvasc - chorthalidone held 3. HLD: - Lipitor - low fat diet 4. ETOH abuse: - [facility] protocol - MVI, Thiamine, Folic acid - currently scoring 0 5. AHD: full code 6. ADOD: unknown pending progress with PT, Pt has 1 stair to enter home. Plan was discussed with the Attending and any changes to the plan will be per the Attending. Denisse Olivarez NP-C Vascular Surgery August 29, 2019 9:49 AM Misty Bowie RN - 08/29/2019 2:48 AM ESTPt received from PACU. Pt AA&Ox3, Pt able move all extremities and follow commands. Pt complained of pain in Rt groin and down his Rt lower ext. Pt describes pain as a burning discomfort. Pt educated on use of fentanyl MANUFACTURING MECHANIC, bolus fentanyl and scheduled pain meds admin with good effect. Pt stated his pain was better controlled after understanding how to use fentanyl MANUFACTURING MECHANIC. Pts Rt lower ext noted to red and warm, bilateral pedal and post tib pulses audible with doppler. Dressings to Rt groin and Rt lower ext remain intact, small amt of sanguinous drainage noted. Pt kept on bedrest. Pt tolerating POliquids. Pts and daughter updated, Pt resting comfortably.Electronically signed by Misty Neff RN at 2019 2:54 AM Korin Loyola DO - 08/29/2019 12:54 AM ESTBrief Note Visited patient post operatively. Complained of some right sided groin pain. Pulses were dopperable bilaterally with signals in the posterior tibialis, dorsalis pedis and peroneal. Korin Barrera PGY-1 Surgery Misty Bowie RN - 08/28/2019 11:13 PM ESTIf wound was present on admission, this documentation was sent to attending provider for cosignature. Nancy Brink PA - 08/28/2019 9:44 PM EST Vascular Surgery Post Op Note Patient name: Micah Walters : 1945 73 y.o. POD: Day of Surgery s/p Right femoral to popliteal artery bypass with Propaten graft LOS: 0 days CC: Post op check SUBJECTIVE The patient is a 73 y.o. White or male with a history of PAD and right 5th toe wound who was taken to the OR today and underwent a right femo- pop bypass. The patient admits to pain in the right leg. He denies numbness, tingling, or weakness in the extrem. He denies CP, SOB, nausea, or vomiting. PHYSICAL EXAM Vitals: Temp: [36.5 C-37.2 C] 36.6 C Pulse: [96-121] 97 Resp: [8-19] 10 BP: (125-153)/(51-108) 138/63 SpO2: [92 %-98 %] 96 % O2 Therapy: Oxygen O2 Flow Rate (L/min): [2 L/min-4 L/min] 2 L/min I/O: Intake/Output Summary (Last 24 hours) at 08/28/20192150 Last data filed at 08/28/20191999 Gross per 24 hour Intake 2600 ml Output 1305 ml Net 1295 ml EBL: 150cc General appearance: Alert and oriented x 3, appears comfortable and in NAD. Lungs: Clear to auscultation bilaterally, no rhonchi, wheezes, or rales. Heart: Regular rate and rhythm, no murmur, rub, or gallop. Abdomen: Soft, non-tender, non-distended, normoactive bowel sounds. No flank tenderness. Extremities: Right leg is soft with no edema. Dressings are C/D/I. Movement and sensation intact.Right 5th toe with dry ulcer Pulses: R- DP/AT/PT peroneal signals on doppler. L- AT/PT signals on doppler SCIP Measures: Post op antibiotics: Ancef x 24 h Beta steven: No Ramos catheter: Yes, strict I/O DVT prophylaxis: Lovenox Labs, Imaging, and other diagnostics: Labs have been reviewed Assessment and Plan: Principal Problem: Atherosclerotic PVD with ulceration Active Problems: Hyperlipidemia Hypertension PAD (peripheral artery disease) Alcohol abuse 1. PAD with right foot ulceration - s/p right fem-pop bypass with Propaten graft - Leg is well perfused with good distal signals - Continue with aspirin daily - Bed rest overnight then OOB in the morning - PT/OT - Ramos in place for strict I/O, d/c in the morning - Ancef x 24 hours - Encourage incentive spirometry - VSS. Wean oxygen as tolerates - Santyl to right foot wound 2. Alcohol abuse - Drinks 6 beers/day - CIWA, MVI, thiamine, folic acid 3. HTN - BP well controlled - Continue with Norvasc and Lisinopril - Chlorthalidone held for now, restart if BP elevated 4. HLD - Continue with Lipitor daily 5. DVT prophylaxis - Lovenox 6. ADOD - Likely Monday Nancy Jernigan PA-C Date: August 28, 2019 Time: 9:51 PM documented in this encounter Plan of Treatment Date Type Specialty Care Team Description 09/20/2019 Office Visit Vascular Surgery Kristin Fernando MD [facility] [place] [place] [address] [phone] Name Type Priority Associated Date/Time Diagnoses US Doppler Lower Imaging Routine 08/30/2019 7:02 Extremity Unilateral AM EST Arterial Ltd (Vascular Lab) FLUORO Arteriogram Imaging Routine PVD (peripheral 08/31/2019 1:51 Lower Extremity-OR vascular disease) AM EST Right Surgical Pathology Pathology and Routine 09/03/2019 8:58 Exam ( Only) Cytology AM EST US Doppler Lower Imaging Routine PVD (peripheral 09/02/2019 2:07 Unilateral Arterial vascular disease) PM EST Bypass Graft Ltd (Vascular Lab) CT Angiography Lower Imaging STAT 09/02/2019 5:19 Extremity Right PM EST US Doppler Lower Imaging Routine 09/03/2019 5:44 Extremity Bilateral PM EST Venous Comp (Vascular Lab) Name Type Priority Associated Order Schedule Diagnoses FLUORO Arteriogram Imaging Routine PVD (peripheral One Time Imaging Lower Extremity-OR vascular disease) Routine for 1 Right Occurrences starting 08/28/2019 until 08/28/2019 Prepare RBC 2 Units Blood Bank Routine Once for 1 Occurrences starting 08/30/2019 until 08/30/2019 FLUORO Arteriogram Imaging Routine PVD (peripheral One Time Imaging Lower Extremity-OR vascular disease) Routine for 1 Right Occurrences starting 08/30/2019 until 08/30/2019 Surgical Pathology Pathology and Routine Once for 1 Exam ( Only) Cytology Occurrences starting 08/30/2019 until 08/30/2019 Surgical Pathology Pathology and Routine Once for 1 Exam ( Only) Cytology Occurrences starting 08/30/2019 until 08/30/2019 Oxygen Orders: Nasal Respiratory Care Routine Continuous for 30 Cannula; Liters per days for 30 Days minute: 2 LPM; D/C starting 08/31/2019 Oxygen 48hrs After until 09/29/2019 Being on Room Air: Yes Basic Metabolic Lab Routine AM Draw for 5 Panel Occurrences starting 09/02/2019 until 09/06/2019, 2 completed Name Type Priority Associated Diagnoses Order Schedule Referral to home Outpatient Referral Routine PAD (peripheral Ordered: health artery disease) 09/03/2019 Health Maintenance Due Date Last Done Comments Hepatitis C Screening (B. 1945 [id number]) MMR Vaccines (1 of 1 - Standard [...] of this encounter Implants Implanted Type Area Community Nurse Device Shelf Model / Identifier Expiration Serial / Date Lot Patch Vasc Xenosure [id number] - [id number] Left: [facility] 07/20/2017 [id number] / Implanted: Qty: 1 on 01/30/2015 by Kristin Fernando MD at OR [facility] Arterial VASCULAR / [id number] Stent- Lifestent-6 X 40 X130 - [id number] Left: [facility] 01/30/2016 [id number] / Implanted: Qty: 1 on 01/30/2015 by Kristin Fernando MD at OR [facility] Arterial / [id number] [place]get Ptfe 9.5x4.8mm - [id number] Left: [facility] [id number] / Implanted: Qty: 1 on 01/30/2015 by Kristin Fernando MD at OR 5E Arterial / Patch Vasc Xenosure [id number] - [id number] Right: Silvia MCCONNELL 2021 E0.8P8 / Implanted: Qty: 1 on 10/28/2016 by Kristin Fernando MD at OR [facility] VASCULAR / [id number] Graft Vasc Propaten [id number] - [id number] CHARLENE Deng 05/25/2020 [id number] / Implanted: Qty: 1 on 10/28/2016 by Kristin Fernando MD at OR [facility] [id number] / Description:femoral to femoral artery graft Stent- Omnilink 8mm X 39 [id number] - [id number] Arterial [facility] 07/20/2022 [id number] / Implanted: Qty: 1 on 07/29/2019 by Kristin Fernando MD at OR [facility] [id number] / [id number] Description:iliac Graft Vasc Propaten [id number] - [id number] Right: Leg CHARLENE KLINE + 09/04/2022 [id number] / Implanted: Qty: 1 on 08/28/2019 by Kristin Fernando MD at OR [facility] [id number] / Cov Stnt - [id number] - [id number] Right: Iliac GORCHARLENE Julien L + [id number] / Implanted: Qty: 1 on 08/30/2019 by Ld Campos MD at OR [facility] [id number] / documented as of this encounter Procedures Procedure Name Priority Date/Time Associated Comments Diagnosis ANTI-XA UNFRACTIONATED Routine 09/03/2019 2:58 Results for this HEPARIN LEVEL AM EST procedure are in the results section. PROTIME INR Routine 09/03/2019 2:58 Results for this AM EST procedure are in the results section. BASIC METABOLIC PANEL Routine 09/03/2019 2:58 Results for this AM EST procedure are in the results section. ANTI-XA UNFRACTIONATED Routine 09/02/2019 6:39 Results for this HEPARIN LEVEL PM EST procedure are in the results section. ANTI-XA UNFRACTIONATED Routine 09/02/2019 11:21 Results for this HEPARIN LEVEL AM EST procedure are in the results section. ANTI-XA UNFRACTIONATED Routine 09/02/2019 4:33 Results for this HEPARIN LEVEL AM EST procedure are in the results section. PROTIME INR Routine 09/02/2019 4:33 Results for this AM EST procedure are in the results section. CBC AND DIFFERENTIAL Routine 09/02/2019 4:33 Results for this AM EST procedure are in the results section. PHOSPHORUS LEVEL Routine 09/02/2019 4:33 Results for this AM EST procedure are in the results section. MAGNESIUM LEVEL Routine 09/02/2019 4:33 Results for this AM EST procedure are in the results section. BASIC METABOLIC PANEL Routine 09/02/2019 4:33 Results for this AM EST procedure are in the results section. ANTI-XA UNFRACTIONATED Routine 09/01/2019 9:37 Results for this HEPARIN LEVEL PM EST procedure are in the results section. ANTI-XA UNFRACTIONATED Routine 09/01/2019 2:47 Results for this HEPARIN LEVEL PM EST procedure are in the results section. CBC Timed 09/01/2019 2:47 Results for this PM EST procedure are in the results section. ANTI-XA UNFRACTIONATED Routine 09/01/2019 6:13 Results for this HEPARIN LEVEL AM EST procedure are in the results section. PROTIME INR Routine 09/01/2019 6:13 Results for this AM EST procedure are in the results section. CBC AND DIFFERENTIAL Routine 09/01/2019 6:13 Results for this AM EST procedure are in the results section. PHOSPHORUS LEVEL Routine 09/01/2019 6:13 Results for this AM EST procedure are in the results section. MAGNESIUM LEVEL Routine 09/01/2019 6:13 Results for this AM EST procedure are in the results section. BASIC METABOLIC PANEL Routine 09/01/2019 6:13 Results for this AM EST procedure are in the results section. ANTI-XA UNFRACTIONATED Routine 08/31/2019 9:31 Results for this HEPARIN LEVEL PM EST procedure are in the results section. ANTI-XA UNFRACTIONATED Routine 08/31/2019 1:20 Results for this HEPARIN LEVEL PM EST procedure are in the results section. ANTI-XA UNFRACTIONATED Routine 08/31/2019 5:58 Results for this HEPARIN LEVEL AM EST procedure are in the results section. PROTIME INR Routine 08/31/2019 5:58 Results for this AM EST procedure are in the results section. CBC AND DIFFERENTIAL Routine 08/31/2019 5:58 Results for this AM EST procedure are in the results section. PHOSPHORUS LEVEL Routine 08/31/2019 5:58 Results for this AM EST procedure are in the results section. MAGNESIUM LEVEL Routine 08/31/2019 5:58 Results for this AM EST procedure are in the results section. BASIC METABOLIC PANEL Routine 08/31/2019 5:58 Results for this AM EST procedure are in the results section. ANTI-XA UNFRACTIONATED STAT 08/31/2019 2:10 Results for this HEPARIN LEVEL AM EST procedure are in the results section. CBC STAT 08/31/2019 2:10 Results for this AM EST procedure are in the results section. BASIC METABOLIC PANEL STAT 08/31/2019 2:10 Results for this AM EST procedure are in the results section. XR FEMUR, ONE VIEW ONLY Routine 08/31/2019 1:30 Diagnosis unknown [place] this [address] AM EST procedure are in the results section. XR PELVIS 1-2 VIEWS Routine 08/31/2019 1:30 Diagnosis unknown [place] this [address] AM EST procedure are in the results section. TRANSFUSE RBC Routine 08/31/2019 12:27 (CONTINUOUS) AM EST POCT ISTAT VENOUS CG8 Routine 08/31/2019 12:11 Results for this AM EST procedure are in the results section. POCT ISTAT ACT Routine 08/31/2019 12:03 Results for this AM EST procedure are in the results section. POCT ISTAT ACT Routine 08/30/2019 11:20 Results for this PM EST procedure are in the results section. POCT ISTAT ACT Routine 08/30/2019 10:41 Results for this PM EST procedure are in the results section. POCT ISTAT ACT Routine 08/30/2019 9:54 Results for this PM EST procedure are in the results section. EMBOLECTOMY/THROMBECTOM 08/30/2019 6:21 occluded bypass Y PM EST FEMOROPOPLITEAL/AORTOIL IAC ARTERY, LEG INCISION Special Needs Pt had a full breakfast at 0900 ANTI-XA UNFRACTIONATED Routine 08/30/2019 4:09 Results for this HEPARIN LEVEL PM EST procedure are in the results section. VASC LAB US DOPPLER Routine 08/30/2019 11:46 PVD (peripheral Results for this LOWER UNILATERAL AM EST vascular disease) procedure are in ARTERIAL BYPASS GRAFT Ischemic ulcer, the results LTD limited to section. breakdown of skin ANTI-XA UNFRACTIONATED Routine 08/30/2019 9:51 Results for this HEPARIN LEVEL AM EST procedure are in the results section. PROTIME INR Routine 08/30/2019 9:51 Results for this AM EST procedure are in the results section. TYPE AND CROSSMATCH Routine 08/30/2019 9:51 Results for this AM EST procedure are in the results section. CBC AND DIFFERENTIAL Routine 08/30/2019 4:25 Results for this AM EST procedure are in the results section. PHOSPHORUS LEVEL Routine 08/30/2019 4:25 Results for this AM EST procedure are in the results section. MAGNESIUM LEVEL Routine 08/30/2019 4:25 Results for this AM EST procedure are in the results section. BASIC METABOLIC PANEL Routine 08/30/2019 4:25 Results for this AM EST procedure are in the results section. CBC AND DIFFERENTIAL Routine 08/29/2019 3:46 Results for this AM EST procedure are in the results section. PHOSPHORUS LEVEL Routine 08/29/2019 3:46 Results for this AM EST procedure are in the results section. MAGNESIUM LEVEL Routine 08/29/2019 3:46 Results for this AM EST procedure are in the results section. BASIC METABOLIC PANEL Routine 08/29/2019 3:46 Results for this AM EST procedure are in the results section. BYPASS GRAFT, W/VEIN; 08/28/2019 2:40 Ischemic ulcer of FEMORAL-POPLITEAL PM EST right foot, unspecified ulcer stage Case Notes 08/22 moved case up to 2 pm/lb08/27 removed aloka from equipment per MD Soha does not need/ bf documented in this encounter Results Protime-INR (09/03/2019 2:58 AM EST) PT Patient 13.4 12.5 - 14.9 [facility] Pathology Int'l Normalized 0.99Comment: Routine [facility] Ratio intensity oral [facility] anticoagulation INR is Pathology typically 2.0-3.0. Target INR must be clinically individualized. Specimen Plasma Performing Organization Address City/[facility] Phone Number [facility] CL[facility]ICAL PATHOLOGY [address] [place] [address] [facility] [address] [place] [address] Pathology anti-Xa unfractionated heparin level (09/03/2019 2:58 AM EST) Heparin Unfractionated 0.62 U/ml [facility] Pathology Specimen Serum Performing Organization Address City/[facility]/Zipcode Phone Number [facility] [address] [place] [address] [facility] [address] [place] [address] Pathology Basic Metabolic Panel (09/03/2019 2:58 AM EST) Bicarbonate 26 22 - 29 mmol/L [facility] Pathology Chloride 96 (L) 98 - 107 mmol/L [facility] Pathology Creatinine 0.72 0.70 - 1.20 [facility] mg/dL Univ Clin Pathology Glucose 110 70 - 140 mg/dL [facility] Pathology Potassium 4.0 3.4 - 5.1 [facility] mmol/L [facility] Pathology Sodium 134 (L) 136 - 145 [facility] mmol/L [facility] Pathology Blood Urea Nitrogen 7 (L) 8 - 23 mg/dL [facility] Pathology Anion Gap 12 8 - 15 mmol/L [facility] Pathology Osmolality, Jermain 277 275 - 300 [facility] mosm/kg [facility] Pathology BUN/Cre Ratio 10 [facility] Pathology Calcium 9.2 8.8 - 10.2 [facility] mg/dL Univ Clin Pathology GFR Non >90 >60 [facility] [place] 2009 CDK-EPI mL/min/1.73m2 Univ Clin Pathology GFR >90 >60 [facility] 2009 CKD-EPI mL/min/1.73m2 [facility] Pathology Specimen Plasma Performing Organization Address [facility] Hospitalcovt Phone Number [facility] PATHOLOGY [address] [place] [address] [facility] [address] [place] [address] Pathology anti-Xa unfractionated heparin level (09/02/2019 6:39 PM EST) Heparin Unfractionated 0.28 U/ml [facility] Pathology Specimen Serum Performing Organization Address [facility] Phone Number [facility] [address] [place] [address] [facility] [address] [place] [address] Pathology anti-Xa unfractionated heparin level (09/02/2019 11:21 AM EST) Heparin Unfractionated 0.23 U/ml [facility] Pathology Specimen Serum Performing Organization Address [facility] Phone Number [facility] [address] [place] [address] [phone] [facility] [address] [place] [address] Pathology HEP: Protime-INR (09/02/2019 4:33 AM EST) PT Patient 13.3 12.5 - 14.9 [facility] Pathology Int'l Normalized 0.98Comment: Routine [facility] Ratio intensity oral Univ Clin anticoagulation INR is Pathology typically 2.0-3.0. Target INR must be clinically individualized. Specimen Plasma Performing Organization Address City/[facility] Phone Number [facility] PATH[facility] [address] [place] [address] [facility] [address] [place] [address] Pathology anti-Xa unfractionated heparin level (09/02/2019 4:33 AM EST) Heparin Unfractionated 0.13 U/ml [facility] Pathology Specimen Serum Performing Organization Address [facility] Phone Number [facility] [address] [place] [address] [phone] [facility] [address] [place] [address] Pathology Basic Metabolic Panel (09/02/2019 4:33 AM EST) Bicarbonate 25 22 - 29 mmol/L [facility] Pathology Chloride 99 98 - 107 mmol/L [facility] Pathology Creatinine 0.82 0.70 - 1.20 [facility] mg/dL [facility] Pathology Glucose 110 70 - 140 mg/dL [facility] Pathology Potassium 4.4 3.4 - 5.1 [facility] mmol/L [facility] Pathology Sodium 134 (L) 136 - 145 [facility] mmol/L [facility] Pathology Blood Urea Nitrogen 10 8 - 23 mg/dL [facility] Pathology Anion Gap 10 8 - 15 mmol/L [facility] Pathology Osmolality, Jermain 278 275 - 300 [facility] mosm/kg [facility] Pathology BUN/Cre Ratio 12 [facility] Pathology Calcium 8.8 8.8 - 10.2 [facility] mg/dL [facility] Pathology GFR Non 86 >60 [facility] [place] 2009 CDK-EPI mL/min/1.73m2 Univ Clin Pathology GFR >90 >60 [facility] 2009 CKD-EPI mL/min/1.73m2 [facility] Pathology Specimen Plasma Performing Organization Address [facility] Phone Number [facility] [address] [place] [address] [facility] Clin [address] [place] [address] Pathology CBC and Differential (09/02/2019 4:33 AM EST) White Blood Cell 10.3 (H) 4 - 10 [facility] 10*3/uL [facility] Clin Pathology Red Blood Cell 2.60 (L) 4.6 - 6.1 [facility] 10*6/uL [facility] Pathology Hemoglobin 8.7 (L) 13.5 - 18 [facility] g/dL [facility] Pathology Hematocrit 25.8 (L) 41 - 53 % [facility] Pathology Mean Cell Volume 99.3 (H) 80 - 96 fL [facility] Pathology Mean Cell Hemoglobin 33.6 (H) 27 - 33 pg [facility] Pathology Mean Cell Hgb Conc 33.8 32.0 - 36.0 [facility] g/dL Univ Clin Pathology Red Cell Dist Width 13.9 11.5 - 14.5 % [facility] Pathology Platelet Count 338 150 - 400 [facility] 10*3/uL [facility] Clin Pathology Differential Type Automated Diff [facility] Pathology Neutrophil 70 % [facility] Lymphocyte 10 % [facility] Monocyte 11 % [facility] Pathology Eosinophil 8 % [facility] Pathology Basophil 1 % [facility] Univ Clin Pathology Abs Neutrophil 7.31 (H) 1.8 - 7.0 [facility] 10*3/uL [facility] Clin Pathology Abs Lymphocyte 1.00 (L) 1.2 - 4.0 [facility] Med 10*3/uL [facility] Clin Pathology Abs Monocyte 1.12 (H) 0 - 0.8 [facility] Med 10*3/uL [facility] Clin Pathology Abs Eosinophil 0.77 (H) 0 - 0.5 [facility] 10*3/uL [facility] Clin Pathology Abs Basophil 0.07 0 - 0.2 [facility] 10*3/uL [facility] Clin Pathology Nucleated Red Blood 0 0 - 0 [facility] Cells /100{WBCs} Univ Clin Pathology Specimen EDTA Whole Blood Performing Organization Address City/State/Zipcode Phone Number [facility] PATHOLOG[facility] [address] [place] [address] [phone] [facility] Univ Clin [address] [place] [address] Pathology Phosphorus Level (09/02/2019 4:33 AM EST) Phosphorus 2.7 2.5 - 4.5 mg/dL [facility] Pathology Specimen Plasma Performing Organization Address [facility] Phone Number [facility] [address] [place] [address] [facility] [address] [place] [address] Pathology Magnesium Level (09/02/2019 4:33 AM EST) Magnesium 1.8 1.6 - 2.4 mg/dL [facility] Pathology Specimen Plasma Performing Organization Address [facility] Phone Number [facility] [address] [place] [address] [facility] [address] [place] [id number] Pathology anti-Xa unfractionated heparin level (09/01/2019 9:37 PM EST) Heparin Unfractionated 0.29 U/ml [facility] Pathology Specimen Serum Performing Organization Address [facility] Phone Number [facility] [address] [place] [address] [facility] [address] [place] [address] Pathology anti-Xa unfractionated heparin level (09/01/2019 2:47 PM EST) Heparin Unfractionated 0.19 U/ml [facility] Pathology Specimen Serum Performing Organization Address [facility] Phone Number [facility] [address] [place] [address] [facility] [address] [place] [address] Pathology HEP: CBC (09/01/2019 2:47 PM EST) White Blood Cell 10.7 (H) 4 - 10 10*3/uL [facility] Pathology Red Blood Cell 2.65 (L) 4.6 - 6.1 [facility] 10*6/uL [facility] Pathology Hemoglobin 8.9 (L) 13.5 - 18 g/dL [facility] Pathology Hematocrit 26.4 (L) 41 - 53 % [facility] Pathology Mean Cell Volume 99.7 (H) 80 - 96 fL [facility] Pathology Mean Cell Hemoglobin 33.4 (H) 27 - 33 pg [facility] Pathology Mean Cell Hgb Conc 33.5 32.0 - 36.0 [facility] g/dL [facility] Pathology Red Cell Dist Width 14.2 11.5 - 14.5 % [facility] Pathology Platelet Count 343 150 - 400 [facility] 10*3/uL [facility] Pathology Specimen EDTA Whole Blood Performing Organization Address [facility] Phone [facility] [address] [place] [address] [facility] [address] [place] [address] Pathology HEP: Protime-INR (09/01/2019 6:13 AM EST) PT Patient 13.7 12.5 - 14.9 [facility] Pathology Int'l Normalized 1.02Comment: Routine [facility] Ratio intensity oral [facility] anticoagulation INR is Pathology typically 2.0-3.0. Target INR must be clinically individualized. Specimen Plasma Performing Organization Address [facility] Phone Number [facility] [address] [place] [address] [phone] [facility] [address] [place] [address] Pathology HEP: anti-Xa unfractionated heparin level (09/01/2019 6:13 AM EST) Heparin Unfractionated 0.94 U/ml [facility] Pathology Specimen Serum Performing Organization Address [facility] Phone Number [facility] [address] [place] [address] [facility] [address] [place] [address] Pathology Basic Metabolic Panel (09/01/2019 6:13 AM EST) Bicarbonate 25 22 - 29 mmol/L [facility] Pathology Chloride 99 98 - 107 mmol/L [facility] Pathology Creatinine 0.94 0.70 - 1.20 [facility] mg/dL Univ Clin Pathology Glucose 108 70 - 140 mg/dL [facility] Pathology Potassium 4.0 3.4 - 5.1 [facility] mmol/L [facility] Pathology Sodium 133 (L) 136 - 145 [facility] mmol/L [facility] Pathology Blood Urea Nitrogen 11 8 - 23 mg/dL [facility] Pathology Anion Gap 9 8 - 15 mmol/L [facility] Pathology Osmolality, Jermain 276 275 - 300 [facility] mosm/kg [facility] Pathology BUN/Cre Ratio 12 [facility] Pathology Calcium 8.4 (L) 8.8 - 10.2 [facility] mg/dL [facility] Pathology GFR Non 82 >60 [facility] Gambian 2009 CDK-EPI mL/min/1.73m2 Univ Clin Pathology GFR >90 >60 [facility] 2009 CKD-EPI mL/min/1.73m2 [facility] Pathology Specimen Plasma Performing Organization Address City/State/[facility] Phone Number [facility] [address] [place] [address] [facility] [address] [place] [id number] Pathology CBC and Differential (09/01/2019 6:13 AM EST) White Blood Cell 9.4 4 - 10 [facility] 10*3/uL [facility] Pathology Red Blood Cell 2.61 (L) 4.6 - 6.1 [facility] 10*6/uL Univ Clin Pathology Hemoglobin 8.5 (L) 13.5 - 18 [facility] g/dL [facility] Pathology Hematocrit 25.7 (L) 41 - 53 % [facility] Pathology Mean Cell Volume 98.5 (H) 80 - 96 fL [facility] Pathology Mean Cell Hemoglobin 32.8 27 - 33 pg [facility] Pathology Mean Cell Hgb Conc 33.3 32.0 - 36.0 [facility] g/dL [facility] Pathology Red Cell Dist Width 14.2 11.5 - 14.5 % [facility] Pathology Platelet Count 295 150 - 400 [facility] 10*3/uL Univ Clin Pathology Differential Type Automated Diff [facility] Pathology Neutrophil 74 % [facility] Lymphocyte 10 % [facility] Pathology Monocyte 11 % [facility] Pathology Eosinophil 5 % [facility] Pathology Basophil 0 % [facility] Pathology Abs Neutrophil 6.95 1.8 - 7.0 [facility] 10*3/uL Univ Clin Pathology Abs Lymphocyte 0.93 (L) 1.2 - 4.0 [facility] 10*3/uL [facility] Pathology Abs Monocyte 1.06 (H) 0 - 0.8 [facility] 10*3/uL [facility] Pathology Abs Eosinophil 0.45 0 - 0.5 [facility] 10*3/uL [facility] Clin Pathology Abs Basophil 0.02 0 - 0.2 [facility] 10*3/uL [facility] Pathology Nucleated Red Blood 0 0 - 0 [facility] Cells /100{WBCs} [facility] Pathology Specimen EDTA Whole Blood Performing Organization Address [facility] Phone Number [facility] [address] [place] [address] [facility] [address] [place] [address] Pathology Phosphorus Level (09/01/2019 6:13 AM EST) Phosphorus 2.7 2.5 - 4.5 mg/dL [facility] Pathology Specimen Plasma Performing Organization Address [facility] Phone Number [facility] [address] [place] [address] [phone] [facility] [address] [place] [address] Pathology Magnesium Level (09/01/2019 6:13 AM EST) Magnesium 1.8 1.6 - 2.4 mg/dL [facility] Pathology Specimen Plasma Performing Organization Address [facility] Phone Number [facility] [address] [place] [address] [phone] [facility] [address] [place] [address] Pathology anti-Xa unfractionated heparin level (08/31/2019 9:31 PM EST) Heparin Unfractionated 0.18 U/ml [facility] Pathology Specimen Serum Performing Organization Address [facility] Phone Number [facility] [address] [place] [address] [phone] [facility] Clin [address] [place] [address] Pathology anti-Xa unfractionated heparin level (08/31/2019 1:20 PM EST) Heparin Unfractionated 0.17 U/ml [facility] Pathology Specimen Serum Performing Organization Address [facility] Phone Number [facility] [address] [place] [address] [facility] [address] [place] [address] Pathology HEP: Protime-INR (08/31/2019 5:58 AM EST) PT Patient 13.8 12.5 - 14.9 [facility] Pathology Int'l Normalized 1.03Comment: Routine [facility] Ratio intensity oral Univ Clin anticoagulation INR is Pathology typically 2.0-3.0. Target INR must be clinically individualized. Specimen Plasma Performing Organization Address [facility] Phone Number [facility] [address] [place] [address] [facility] [address] [place] [address] Pathology HEP: anti-Xa unfractionated heparin level (08/31/2019 5:58 AM EST) Heparin Unfractionated 0.16 U/ml [facility] Pathology Specimen Serum Performing Organization Address City/[facility] Phone Number [facility] [address] [place] [address] [phone] [facility] [address] [place] [address] Pathology Basic Metabolic Panel (08/31/2019 5:58 AM EST) Bicarbonate 22 22 - 29 mmol/L [facility] Pathology Chloride 97 (L) 98 - 107 mmol/L [facility] Pathology Creatinine 1.01 0.70 - 1.20 [facility] mg/dL [facility] Pathology Glucose 155 (H) 70 - 140 mg/dL [facility] Pathology Potassium 4.6 3.4 - 5.1 [facility] mmol/L [facility] Pathology Sodium 134 (L) 136 - 145 [facility] mmol/L [facility] Pathology Blood Urea Nitrogen 10 8 - 23 mg/dL [facility] Pathology Anion Gap 15 8 - 15 mmol/L [facility] Pathology Osmolality, Jermain 280 275 - 300 [facility] mosm/kg [facility] Pathology BUN/Cre Ratio 10 [facility] Pathology Calcium 8.0 (L) 8.8 - 10.2 [facility] mg/dL [facility] Pathology GFR Non 72 >60 [facility] Gambian 2008 CDK-EPI mL/min/1.73m2 [facility] Pathology GFR 84 >60 [facility] 2008 CKD-EPI mL/min/1.73m2 [facility] Pathology Specimen Plasma Performing Organization Address City/State/Zipcode Phone Number [facility] [address] [place] [address] [facility] Clin [address] [place] [address] Pathology CBC and Differential (08/31/2019 5:58 AM EST) White Blood Cell 11.1 (H) 4 - 10 [facility] 10*3/uL [facility] Pathology Red Blood Cell 2.98 (L) 4.6 - 6.1 [facility] 10*6/uL [facility] Pathology Hemoglobin 9.8 (L) 13.5 - 18 [facility] g/dL [facility] Pathology Hematocrit 29.6 (L) 41 - 53 % [facility] Pathology Mean Cell Volume 99.6 (H) 80 - 96 fL [facility] Pathology Mean Cell Hemoglobin 32.9 27 - 33 pg [facility] Pathology Mean Cell Hgb Conc 33.0 32.0 - 36.0 [facility] g/dL [facility] Pathology Red Cell Dist Width 14.3 11.5 - 14.5 % [facility] Pathology Platelet Count 287 150 - 400 [facility] 10*3/uL [facility] Clin Pathology Differential Type Automated Diff [facility] Pathology Neutrophil 85 % [facility] Lymphocyte 4 % [facility] Pathology Monocyte 10 % [facility] Pathology Eosinophil 0 % [facility] Pathology Basophil 1 % [facility] Pathology Abs Neutrophil 9.52 (H) 1.8 - 7.0 [facility] 10*3/uL Univ [facility] Pathology Abs Lymphocyte 0.44 (L) 1.2 - 4.0 [facility] 10*3/uL [facility] Pathology Abs Monocyte 1.08 (H) 0 - 0.8 [facility] 10*3/uL [facility] Pathology Abs Eosinophil 0.00 0 - 0.5 [facility] 10*3/uL [facility] Pathology Abs Basophil 0.06 0 - 0.2 [facility] 10*3/uL [facility] Pathology Nucleated Red Blood 0 0 - 0 [facility] Cells /100{WBCs} [facility] Pathology Specimen EDTA Whole Blood Performing Organization Address [facility] Phone Number [facility] [address] [place] [address] [facility] [address] [place] [address] Pathology Phosphorus Level (08/31/2019 5:58 AM EST) Phosphorus 2.8 2.5 - 4.5 mg/dL [facility] Pathology Specimen Plasma Performing Organization Address [facility] Phone Number [facility] [address] [place] [address] [facility] [address] [place] [address] Pathology Magnesium Level (08/31/2019 5:58 AM EST) Magnesium 1.6 1.6 - 2.4 mg/dL [facility] Pathology Specimen Plasma Performing Organization Address [facility] Phone Number [facility] [address] [place] [address] [phone] [facility] [address] [place] [address] Pathology Basic Metabolic Panel (08/31/2019 2:10 AM EST) Bicarbonate 23 22 - 29 mmol/L [facility] Pathology Chloride 99 98 - 107 mmol/L [facility] Pathology Creatinine 0.96 0.70 - 1.20 [facility] mg/dL [facility] Pathology Glucose 186 (H) 70 - 140 mg/dL [facility] Pathology Potassium 4.7 3.4 - 5.1 [facility] mmol/L [facility] Pathology Sodium 135 (L) 136 - 145 [facility] mmol/L [facility] Pathology Blood Urea Nitrogen 9 8 - 23 mg/dL [facility] Pathology Anion Gap 13 8 - 15 mmol/L [facility] Pathology Osmolality, Jermain 284 275 - 300 [facility] mosm/kg [facility] Pathology BUN/Cre Ratio 9 [facility] Pathology Calcium 8.5 (L) 8.8 - 10.2 [facility] mg/dL [facility] Pathology GFR Non 81 >60 [facility] Gambian 2008 CDK-EPI mL/min/1.73m2 [facility] Clin Pathology GFR >90 >60 [facility] 2009 CKD-EPI mL/min/1.73m2 [facility] Pathology Specimen Plasma Performing Organization Address [facility] Phone Number [facility] [address] [place] [address] [phone] [facility] [address] [place] [address] Pathology CBC (08/31/2019 2:10 AM EST) White Blood Cell 11.0 (H) 4 - 10 10*3/uL [facility] Pathology Red Blood Cell 3.35 (L) 4.6 - 6.1 [facility] 10*6/uL [facility] Pathology Hemoglobin 11.2 (L) 13.5 - 18 g/dL [facility] Pathology Hematocrit 33.1 (L) 41 - 53 % [facility] Pathology Mean Cell Volume 99.1 (H) 80 - 96 fL [facility] Pathology Mean Cell Hemoglobin 33.4 (H) 27 - 33 pg [facility] Pathology Mean Cell Hgb Conc 33.7 32.0 - 36.0 [facility] g/dL [facility] Pathology Red Cell Dist Width 14.5 11.5 - 14.5 % [facility] Pathology Platelet Count 312 150 - 400 [facility] 10*3/uL [facility] Pathology Specimen EDTA Whole Blood Performing Organization Address [facility] Phone Number [facility] [address] [place] [address] [facility] [address] [place] [address] Pathology anti-Xa unfractionated heparin level (08/31/2019 2:10 AM EST) Heparin Unfractionated 1.40 (HH) U/ml [facility] Comment: [facility] Confirmed Pathology Called to and read back by KADE BRAXTON RN ON 8G AT 0315 BY 1521 Specimen Serum Performing Organization Address City/State/Zipcode Phone Number [facility] [address] [place] [address] [facility] [address] [place] [address] Pathology XR Femur, One View Only Right (08/31/2019 1:30 AM EST) Specimen Impressions Performed At FINDINGS/IMPRESSION: [facility] FEMUR: No acute fracture or joint dislocation . Mild degenerative changes in the right hip joint. Postsurgical changes at the right thigh and knee, with multiple skin harsha at the medial aspect of the knee. Vascular calcifications. PELVIS: The pelvic ring appears intact.There is no evidence of an acute fracture or dislocation. Mild degenerative changes in the bilateral hip joints. Moderately advanced degenerative changes in the lower lumbar/sacral joints. Multiple air-filled slightly dilated small bowel loops are noted. A Ramos catheter is seen in the urinary bladder. Vascular stent at the region of the right common iliac artery. No radiopaque tubular structure similar to the suspected missing instrument in the pelvis or the right thigh. Findings were discussed with Dr. Fernando by Dr. Jones via phone at 1:30 AM on 08/31/2019. Narrative Performed At INDICATION: Flat-plate in O.R. for a missing instrument count. [facility] TECHNIQUE: AP view of the pelvis and the right femur were obtained. Two additional images of the missing instrument is obtained. COMPARISON: CTA abdomen and pelvis dated 05/29/2019. Procedure Note Interface, Received Via [employer] System - 09/02/2019 7:20 AM EST INDICATION: Flat-plate in O.R. for a missing instrument count. TECHNIQUE: AP view of the pelvis and the right femur were obtained. Two additional images of the missing instrument is obtained. COMPARISON: CTA abdomen and pelvis dated 05/29/2019. FINDINGS/IMPRESSION: RIGHT FEMUR: No acute fracture or joint dislocation . Mild degenerative changes in the right hip joint. Postsurgical changes at the right thigh and knee , with multiple skin harsha at the medial aspect of the knee. Vascular calcifications. PELVIS: The pelvic ring appears intact.There is no evidence of an acute fracture or dislocation. Mild degenerative changes in the bilateral hip joints. Moderately advanced degenerative changes in the lower lumbar/sacral joints. Multiple air-filled slightly dilated small bowel loops are noted. A Ramos catheter is seen in the urinary bladder. Vascular stent at the region of the right common iliac artery. No radiopaque tubular structure similar to the suspected missing instrument in the pelvis or the right thigh. Findings were discussed with Dr. Fernando by Dr. Jones via phone at 1:30 AM on 2019. Performing Organization Address City/State/Zipcode Phone Number [facility] [address] [place] [address] XR Pelvis 1-2 Views (08/31/2019 1:30 AM EST) Specimen Impressions Performed At FINDINGS/IMPRESSION: [facility] RIGHT FEMUR: No acute fracture or joint dislocation . Mild degenerative changes in the right hip joint. Postsurgical changes at the right thigh and knee, with multiple skin harsha at the medial aspect of the knee. Vascular calcifications. PELVIS: The pelvic ring appears intact.There is no evidence of an acute fracture or dislocation. Mild degenerative changes in the bilateral hip joints. Moderately advanced degenerative changes in the lower lumbar/sacral joints. Multiple air-filled slightly dilated small bowel loops are noted. A Ramos catheter is seen in the urinary bladder. Vascular stent at the region of the right common iliac artery. No radiopaque tubular structure similar to the suspected missing instrument in the pelvis or the right thigh. Findings were discussed with Dr. Fernando by Dr. Jones via phone at 1:30 AM on 08/31/2019. Narrative Performed At INDICATION: Flat-plate in O.R. for a missing instrument count. [facility] TECHNIQUE: AP view of the pelvis and the right femur were obtained. Two additional images of the missing instrument is obtained. COMPARISON: CTA abdomen and pelvis dated 05/29/2019. Procedure Note Interface, Received [employer] - 09/02/2019 7:20 AM EST INDICATION: Flat-plate in O.R. for a missing instrument count. TECHNIQUE: AP view of the pelvis and the right femur were obtained. Two additional images of the missing instrument is obtained. COMPARISON: CTA abdomen and pelvis dated 05/29/2019. FINDINGS/IMPRESSION: RIGHT FEMUR: No acute fracture or joint dislocation . Mild degenerative changes in the right hip joint. Postsurgical changes at the right thigh and knee , with multiple skin harsha at the medial aspect of the knee. Vascular calcifications. PELVIS: The pelvic ring appears intact.There is no evidence of an acute fracture or dislocation. Mild degenerative changes in the bilateral hip joints. Moderately advanced degenerative changes in the lower lumbar/sacral joints. Multiple air-filled slightly dilated small bowel loops are noted. A Ramos catheter is seen in the urinary bladder. Vascular stent at the region of the right common iliac artery. No radiopaque tubular structure similar to the suspected missing instrument in the pelvis or the right thigh. Findings were discussed with Dr. Fernando by Dr. Jones via phone at 1:30 AM on 2019. Performing Organization Address [facility] Phone Number [facility] [address] [place] [address] POCT i-STAT venous CG8 (08/31/2019 12:11 AM EST) i-STAT Venous pH 7.40 7.36 - 7.41 [facility] POC i-STAT Venous PCO2 36 (L) 40 - [address] [facility] POC i-STAT Venous PO2 [address] [facility] POC i-STAT Venous Base NEG 2 mmol/L [facility] Excess [facility] POC i-STAT Venous SO2 86 (H) 60 - 85 % [facility] POC i-STAT Venous Total 23 mmol/L [facility] CO2 [facility] POC i-STAT Sodium 135 (L) 136 - 145 [place] [facility] mmol/L [facility] POC i-STAT Potassium 4.3 3.4 - 5.1 [facility] mmol/L [facility] POC i-STAT Ionized 1.11 (L) 1.13 - 1.32 [facility] Calcium mmol/L [facility] POC i-STAT Glucose 173 (H) 70 - 140 mg/dL [facility] POC i-STAT Hematocrit 33 (L) 41 - 53 % [facility] POC i-STAT Hemoglobin 11.2 (L) 13.5 - 18.0 [facility] g/dL [facility] POC Specimen Whole Blood Performing Organization Address City/[facility] Phone Number POINT OF CARE TEST [address] [place] [address] [facility] POC [address] [place] [address] POCT i-STAT ACT (08/31/2019 12:03 AM EST) i-Stat ACT [address] [facility] POC Specimen Whole Blood Performing Organization Address [facility] Phone Number POINT OF CARE TEST [address] [place] [address] [facility] POC [address] [place] [address] POCT i-STAT ACT (08/30/2019 11:20 PM EST) i-Stat ACT 213 [facility] POC Specimen Whole Blood Performing Organization Address City/[facility] Phone Number POINT OF CARE TEST [address] [place] [address] [facility] POC [address] [place] [address] POCT i-STAT ACT (08/30/2019 10:41 PM EST) i-Stat ACT 246 [facility] POC Specimen Whole Blood Performing Organization Address [facility] Phone Number POINT OF CARE TEST [address] [place] [address] [facility] POC [address] [place] [address] POCT i-STAT ACT (08/30/2019 9:54 PM EST) i-Stat ACT 235 [facility] POC Specimen Whole Blood Performing Organization Address [facility] Phone Number POINT OF CARE TEST [address] [place], [place] [phone] [place] [address] POC [address] [place] [address] anti-Xa unfractionated heparin level (08/30/2019 4:09 PM EST) Heparin Unfractionated 0.60 U/ml [facility] Pathology Specimen Serum Performing Organization Address [facility] Phone Number [facility] [address] [place] [address] [phone] [facility] [address] [place] [address] Pathology US Doppler Lower Unilateral Arterial Bypass Graft Ltd (Vascular Lab) (2019 11:46 AM EST) Specimen Narrative [facility]formed [facility], [facility] --- FINAL REPORT --- Name: MICAH WALTERS : 1945 Visit: [id number] Date: 30 Aug 2019 TYPE OF TEST: Bypass Graft Duplex REASON FOR TEST Rest pain (right side), Initial post-op Graft:- Summary: Right common femoral - popliteal (below knee) bypass with propaten Op. Date: 08/28/2019 Surgeon: Kristin Fernando MD Results:- Velocity Ratio Stenosis Waveform -------- ----- -------- Inflow: Proximal: Upper: Mid-graft: Lower: Distal: Outflow: CHUY: INTERPRETATION/FINDINGS Duplex examination of the right fem-pop bypass graft: There is no identifiable arterial flow visualized in the bypass graft indicating occlusion. Severe homogenous plaque noted within the graft. Low velocity monophasic arterial flow is demonstrated in the dorsalis pedis artery. No identifiable arterial flow visualized in the distal posterior tibial artery suggesting occlusion. The right to left fem-fem bypass is patent. ADDITIONAL COMMENTS I have personally reviewed the data relevant to the interpretation of this study. TECHNOLOGIST: Yoav James PHYSICIAN: Electronically signed by: Vlad Reyez 08/30/2019 03:06 PM Procedure Note Interface, Received Via [employer] - 08/30/2019 3:06 PM GUIDO [facility], [facility] --- FINAL REPORT --- Name: MICAH WALTERS : 1945 Visit: [id number] Date: 30 Aug 2019 TYPE OF TEST: Bypass Graft Duplex REASON FOR TEST Rest pain (right side), Initial post-op Graft:- Summary: Right common femoral - popliteal (below knee) bypass with propaten Op. Date: 08/28/2019 Surgeon: Kristin Fernando MD Results:- Velocity Ratio Stenosis Waveform -------- ----- -------- Inflow: Proximal: Upper: Mid-graft: Lower: Distal: Outflow: CHUY: INTERPRETATION/FINDINGS Duplex examination of the right fem-pop bypass graft: There is no identifiable arterial flow visualized in the bypass graft indicating occlusion. Severe homogenous plaque noted within the graft. Low velocity monophasic arterial flow is demonstrated in the dorsalis pedis artery. No identifiable arterial flow visualized in the distal posterior tibial artery suggesting occlusion. The right to left fem-fem bypass is patent. ADDITIONAL COMMENTS I have personally reviewed the data relevant to the interpretation of this study. TECHNOLOGIST: Yoav James PHYSICIAN: Electronically signed by: Vlad Reyez 08/30/2019 03:06 PM Performing Organization Address City/State/Zipcode Phone Number U NON RADIOLOGY IMAGING [address] [place] [address] Protime-INR (08/30/2019 9:51 AM EST) PT Patient 14.3 12.5 - 14.9 [facility] Pathology Int'l Normalized 1.08Comment: Routine [facility] Ratio intensity oral Univ Clin anticoagulation INR is Pathology typically 2.0-3.0. Target INR must be clinically individualized. Specimen Plasma Performing Organization Address [facility] Phone Number [facility] PATHOLOGY [address] [place] [address] [facility] [address] [place] [address] Pathology Type and Crossmatch (08/30/2019 9:51 AM EST) ABO/RH(D) O POS [facility] Pathology Gel Antibody Screen NEG [facility] Pathology Crossmatch 09/02/2019 [facility] Expiration Univ [facility] Pathology Site Performed at [facility], . Univ Clin [facility] UNIT NUMBER [id number] [facility] Univ [facility] Pathology Blood Component Leukoreduced Red [facility] Cells Univ Clin Pathology Unit Division 00 [facility] Univ [facility] Pathology STATUS OF UNIT ISSUED, FINAL [facility] Pathology TRANSFUSION STATUS OK TO TRANSFUSE [facility] Pathology CROSSMATCH RESULT Compatible [facility] Pathology UNIT NUMBER [id number] [facility] Pathology Blood Component Leukoreduced Red [facility] Cells [facility] Pathology Unit Division 00 [facility] Pathology STATUS OF UNIT REL FROM ALLOC [facility] Univ Clin Pathology TRANSFUSION STATUS OK TO TRANSFUSE [facility] Pathology CROSSMATCH RESULT Compatible [facility] Pathology Specimen EDTA Whole Blood Performing Organization Address City/[facility] Phone Number [facility] [address] [place] [address] [facility] Univ Clin [address] [place] [address] Pathology anti-Xa unfractionated heparin level (08/30/2019 9:51 AM EST) Heparin Unfractionated 1.02Comment: U/ml [facility] CONFIRMED BY [facility] DILUTION Pathology Specimen Serum Performing Organization Address City/State/Zipcode Phone Number [facility] [address] [place] [address] [phone] [facility] Univ Clin [address] [place] [address] Pathology Basic Metabolic Panel (08/30/2019 4:25 AM EST) Bicarbonate 26 22 - 29 mmol/L [facility] Univ Clin Pathology Chloride 97 (L) 98 - 107 mmol/L [facility] Pathology Creatinine 0.78 0.70 - 1.20 [facility] mg/dL Univ Clin Pathology Glucose 109 70 - 140 mg/dL [facility] Pathology Potassium 4.1 3.4 - 5.1 [facility] mmol/L [facility] Pathology Sodium 133 (L) 136 - 145 [facility] mmol/L [facility] Pathology Blood Urea Nitrogen 7 (L) 8 - 23 mg/dL [facility] Pathology Anion Gap 10 8 - 15 mmol/L [facility] Pathology Osmolality, Jermain 275 275 - 300 [facility] mosm/kg Univ Clin Pathology BUN/Cre Ratio 9 [facility] Pathology Calcium 9.0 8.8 - 10.2 [facility] mg/dL Univ Clin Pathology GFR Non 88 >60 [facility] Gambian 2009 CDK-EPI mL/min/1.73m2 [facility] Pathology GFR >90 >60 [facility] 2009 CKD-EPI mL/min/1.73m2 [facility] Pathology Specimen Plasma Performing Organization Address City/[facility]/Zipcode Phone Number [facility] [address] [place] [address] [facility] Univ Clin [address] [place] [address] Pathology CBC and Differential (08/30/2019 4:25 AM EST) White Blood Cell 8.6 4 - 10 [facility] 10*3/uL Univ Clin Pathology Red Blood Cell 3.27 (L) 4.6 - 6.1 [facility] 10*6/uL [facility] Pathology Hemoglobin 10.9 (L) 13.5 - 18 [facility] g/dL Univ [facility] Pathology Hematocrit 32.2 (L) 41 - 53 % [facility] Pathology Mean Cell Volume 98.6 (H) 80 - 96 fL [facility] Pathology Mean Cell Hemoglobin 33.2 (H) 27 - 33 pg [facility] Univ Clin Pathology Mean Cell Hgb Conc 33.7 32.0 - 36.0 [facility] g/dL Univ Clin Pathology Red Cell Dist Width 14.3 11.5 - 14.5 % [facility] Pathology Platelet Count 286 150 - 400 [facility] 10*3/uL Univ Clin Pathology Differential Type Automated Diff [facility] Pathology Neutrophil 73 % [facility] Pathology Lymphocyte 11 % [facility] Pathology Monocyte 12 % [facility] Univ Clin Pathology Eosinophil 3 % [facility] Univ Clin Pathology Basophil 1 % [facility] Pathology Abs Neutrophil 6.38 1.8 - 7.0 [facility] 10*3/uL Univ Clin Pathology Abs Lymphocyte 0.95 (L) 1.2 - 4.0 [facility] 10*3/uL Univ Clin Pathology Abs Monocyte 1.02 (H) 0 - 0.8 [facility] 10*3/uL [facility] Clin Pathology Abs Eosinophil 0.23 0 - 0.5 [facility] 10*3/uL Univ Clin Pathology Abs Basophil 0.06 0 - 0.2 [facility] 10*3/uL [facility] Pathology Nucleated Red Blood 0 0 - 0 [facility] Cells /100{WBCs} [facility] Pathology Specimen EDTA Whole Blood Performing Organization Address City/[facility] Phone Number [facility] PATH[facility] [address] [place] [address] [phone] [facility] Univ Clin [address] [place] [address] Pathology Phosphorus Level (08/30/2019 4:25 AM EST) Phosphorus 2.7 2.5 - 4.5 mg/dL [facility] Pathology Specimen Plasma Performing Organization Address [facility] Phone Number [facility] [address] [place] [address] [facility] [address] [place] [address] Pathology Magnesium Level (08/30/2019 4:25 AM EST) Magnesium 2.1 1.6 - 2.4 mg/dL [facility] Pathology Specimen Plasma Performing Organization Address [facility] Phone Number [facility] [address] [place] [address] [facility] [address] [place] [address] Pathology Basic Metabolic Panel (08/29/2019 3:46 AM EST) Bicarbonate 24 22 - 29 mmol/L [facility] Pathology Chloride 94 (L) 98 - 107 mmol/L [facility] Pathology Creatinine 0.94 0.70 - 1.20 [facility] mg/dL Univ Clin Pathology Glucose 151 (H) 70 - 140 mg/dL [facility] Pathology Potassium 4.4 3.4 - 5.1 [facility] mmol/L [facility] Pathology Sodium 130 (L) 136 - 145 [facility] mmol/L [facility] Pathology Blood Urea Nitrogen 9 8 - 23 mg/dL [facility] Pathology Anion Gap 12 8 - 15 mmol/L [facility] Pathology Osmolality, Jermain 272 (L) 275 - 300 [facility] mosm/kg Univ Clin Pathology BUN/Cre Ratio 10 [facility] Pathology Calcium 8.8 8.8 - 10.2 [facility] mg/dL [facility] Clin Pathology GFR Non 82 >60 [facility] Gamb[place] 2009 CDK-EPI mL/min/1.73m2 [facility] Pathology GFR >90 >60 [facility] 2009 CKD-EPI mL/min/1.73m2 [facility] Pathology Specimen Plasma Performing Organization Address City/State/[facility] Phone Number [facility] [address] [place] [address] [facility] Univ Clin [address] [place] [address] Pathology CBC and Differential (08/29/2019 3:46 AM EST) White Blood Cell 12.8 (H) 4 - 10 [facility] 10*3/uL [facility] Pathology Red Blood Cell 3.38 (L) 4.6 - 6.1 [facility] 10*6/uL Univ Clin Pathology Hemoglobin 11.1 (L) 13.5 - 18 [facility] g/dL Univ Clin Pathology Hematocrit 33.4 (L) 41 - 53 % [facility] Pathology Mean Cell Volume 98.8 (H) 80 - 96 fL [facility] Pathology Mean Cell Hemoglobin 32.7 27 - 33 pg [facility] Pathology Mean Cell Hgb Conc 33.1 32.0 - 36.0 [facility] g/dL Univ Clin Pathology Red Cell Dist Width 14.0 11.5 - 14.5 % [facility] Pathology Platelet Count 299 150 - 400 [facility] 10*3/uL Univ Clin Pathology Differential Type Automated Diff [facility] Pathology Neutrophil 90 % [facility] Univ Clin Pathology Lymphocyte 4 % [facility] Pathology Monocyte 5 % [facility] Univ Clin Pathology Eosinophil 0 % [facility] Univ Clin Pathology Basophil 1 % [facility] Pathology Abs Neutrophil 11.56 (H) 1.8 - 7.0 [facility] 10*3/uL Univ Clin Pathology Abs Lymphocyte 0.46 (L) 1.2 - 4.0 [facility] 10*3/uL Univ Clin Pathology Abs Monocyte 0.67 0 - 0.8 [facility] 10*3/uL Univ Clin Pathology Abs Eosinophil 0.00 0 - 0.5 [facility] 10*3/uL Univ Clin Pathology Abs Basophil 0.12 0 - 0.2 [facility] 10*3/uL [facility] Pathology Nucleated Red Blood 0 0 - 0 [facility] Cells /100{WBCs} [facility] Pathology Specimen EDTA Whole Blood Performing Organization Address [facility] Phone Number [facility] [address] [place] [address] [facility] Univ Clin [address] [place] [address] Pathology Phosphorus Level (08/29/2019 3:46 AM EST) Phosphorus 2.8 2.5 - 4.5 mg/dL [facility] Pathology Specimen Plasma Performing Organization Address [facility] Phone Number [facility] [address] [place] [address] [facility] [address] [place] [address] Pathology Magnesium Level (08/29/2019 3:46 AM EST) Magnesium 1.5 (L) 1.6 - 2.4 mg/dL [facility] Pathology Specimen Plasma Performing Organization Address [facility]/Zipcode Phone Number [facility] [address] [place] [address] [facility] [address] [place] [address] Pathology documented in this encounter Visit Diagnoses Diagnosis PVD (peripheral vascular disease) Peripheral vascular disease, unspecified Ischemic ulcer, limited to breakdown of skin Diagnosis unknown Other unknown and unspecified cause of morbidity or mortality PAD (peripheral artery disease) Peripheral vascular disease, unspecified Hypertension Unspecified essential hypertension Hyperlipidemia Other and unspecified hyperlipidemia Alcohol abuse Alcohol abuse, unspecified documented in this encounter Administered Medications Medication Order MAR Action Action Date Dose Rate Site acetaminophen (TYLENOL) tablet Given 09/03/2019 8:07 AM EST 650 mg 650 mg 650 mg, Oral, Every 6 hours, First dose on Mon08/28/19 at 2100, For 30 days, Maximum daily dose of acetaminophen is 3,000 mg from all sources in 24 hours., Given 09/03/2019 2:51 AM EST 650 mg Given 09/02/2019 8:32 PM EST 650 mg allopurinol (ZYLOPRIM) tablet 300 mg Given 09/03/2019 8:06 AM EST 300 mg 300 mg, Oral, Every morning, First dose on Nikki 08/29/19 at 0900, For 30 days Given 09/02/2019 8:24 AM EST 300 mg Given 09/01/2019 8:42 AM EST 300 mg amlodipine (NORVASC) tablet 2.5 mg Given 09/03/2019 8:07 AM EST 2.5 mg 2.5 mg, Oral, 2 Times Daily, First dose on Mon08/28/19 at 2100, For 30 days, Check vital signs before administering, Given 09/02/2019 8:33 PM EST 2.5 mg Given 09/02/2019 8:25 AM EST 2.5 mg aspirin chewable tablet 81 mg Given 09/03/2019 8:07 AM EST 81 mg 81 mg, Oral, Every evening, First dose (after last modification) on Mon08/31/19 at 0915, For 30 days Given 09/02/2019 8:24 AM EST 81 mg Given 09/01/2019 8:42 AM EST 81 mg atorvastatin (LIPITOR) tablet 40 mg Given 09/03/2019 8:06 AM EST 40 mg 40 mg, Oral, Every morning, First dose on Mon08/29/19 at 0900, For 30 days Given 09/02/2019 8:24 AM EST 40 mg Given 09/01/2019 8:42 AM EST 40 mg collagenase (SANTYL) ointment Given 09/02/2019 8:25 AM EST Topical, Daily Standard, First dose on Mon08/28/19 at 1930, For 28 days Given 09/01/2019 8:46 AM EST Given 08/31/2019 9:19 AM EST folic acid (FOLVITE) tablet 1 mg Given 09/03/2019 8:06 AM EST 1 mg 1 mg, Oral, Daily Standard, First dose on Mon08/29/19 at 0900, For 30 days Given 09/02/2019 8:24 AM EST 1 mg Given 09/01/2019 8:42 AM EST 1 mg gabapentin (NEURONTIN) capsule 300 mg Given 09/03/2019 8:07 AM EST 300 mg 300 mg, Oral, Three Times Daily Standard, First dose on Mon08/28/19 at 2100, For 30 days Given 09/02/2019 8:32 PM EST 300 mg Given 09/02/2019 4:08 PM EST 300 mg latanoprost (XALATAN) 0.005 % ophthalmic Given 09/02/2019 8:34 PM EST 2 drops solution 2 drop 2 drop, Both Eyes, Every evening, First dose on Mon08/28/19 at 2100, For 30 days Given 09/01/2019 10:13 PM EST 2 drops Given 08/31/2019 9:37 PM EST 2 drops lidocaine (XYLOCAINE) 1 % injection 5 mL 5 mL, Subcutaneous, Once PRN, For MIDLINE Catheter insertion, Starting 08/09 at 0923, For 30 days lidocaine (XYLOCAINE) 1 % injection 5 mL 5 mL, Subcutaneous, Once PRN, for PICC insertion, Starting Mon09/01/19 at 1119 , For 30 days lisinopril (PRINIVIL,ZESTRIL) tablet 40 mg Given 09/03/2019 8:07 AM EST 40 mg 40 mg, Oral, Every morning, First dose on Mon08/29/19 at 0900, For 30 doses, Hold for SBP <120, Given 09/02/2019 8:24 AM EST 40 mg Given 09/01/2019 8:42 AM EST 40 mg multivitamin tablet 1 tablet Given 09/03/2019 8:07 AM EST 1 tablet 1 tablet, Oral, Daily Standard, First dose on Mon08/29/19 at 0900, For 30 days Given 09/02/2019 8:24 AM EST 1 tablet Given 09/01/2019 8:42 AM EST 1 tablet ondansetron (ZOFRAN) injection 4 mg 4 mg, Intravenous, Every 8 hours PRN, Nausea, Vomiting, Starting [place] 09/01/19 at 0922, For 86 hours oxyCODONE (ROXICODONE) immediate release tablet 10 mg 10 mg, Oral, Every 4 hours PRN, Severe Pain (Pain Scale Score 7-10), Starting [place] 09/01/19 at 0922, For 3 days, Oxycodone immediate release is limited to 10 mg per dose. Higher doses ( only) require Pain Service consultation and approval., oxyCODONE (ROXICODONE) immediate release Given 09/03/2019 7:37 AM EST 5 mg tablet 5 mg 5 mg, Oral, Every 4 hours PRN, Moderate Pain (Pain Scale Score 4-6), Starting [place] 09/01/19 at 0922, For 3 days, Oxycodone immediate release is limited to 10 mg per dose. Higher doses ( only) require Pain Service consultation and approval., Given 09/03/2019 2:52 AM EST 5 mg Given 09/02/2019 8:32 PM EST 5 mg pantoprazole (PROTONIX) EC tablet 20 mg Given 09/03/2019 8:07 AM EST 20 mg 20 mg, Oral, Every morning, First dose on Mon08/29/19 at 0900, For 30 days, Do not crush or chew, Given 09/02/2019 8:24 AM EST 20 mg Given 09/01/2019 8:42 AM EST 20 mg rivaroxaban (XARELTO) tablet 2.5 mg Given 09/03/2019 8:07 AM EST 2.5 mg 2.5 mg, Oral, 2 Times Daily, First dose on Mon09/03/19 at 0900, For 30 days sodium chloride (preservative free) 0.9 % flush 10 mL 10 mL, Intravenous, PRN, Line Care, Starting Mon09/01/19 at 1119, For 30 days, Verify blood return before use. Flush with 10 mL of Sodium Chloride 0.9 % before and after infusions or blood sampling followed-by 2 mL Heparin 10 units/mL to lock. Reference Policy CM C-34H Central Line Policy., thiamine (B-1) tablet 100 mg Given 09/03/2019 8:07 AM EST 100 mg 100 mg, Oral, Daily Standard, First dose on Nikki 08/29/19 at 0900, For 30 days Given 09/02/2019 8:24 AM EST 100 mg Given 09/01/2019 8:42 AM EST 100 mg Medication Order MAR Action Action Date Dose Rate Site acetaminophen (OFIRMEV) New Bag 08/31/2019 1:48 AM 1,000 mg 400 mL/hr infusion 1,000 mg EST 1,000 mg, Intravenous, Once, 08/31/19 at 0200, For 1 dose, If NPO and has not yet received an acetaminophen product in prior 4 hours., Recovery aspirin chewable tablet 81 mg Given 08/29/2019 8:14 PM EST 81 mg 81 mg, Oral, Every evening, First dose on Nikki 08/29/19 at 2100, For 7 doses ceFAZolin (ANCEF) IVPB 1 g in New Bag 08/29/2019 7:30 AM EST 1 g 100 mL/ hr dextrose 5 % (premix) 1 g, Intravenous, Administer over 30 Minutes, Every 8 hours, First dose on Mon08/28/19 at 2330, For 2 doses New Bag 08/28/2019 9:42 PM EST 1 g 100 mL/hr clopidogrel (PLAVIX) tablet 150 mg Given 08/31/2019 9:22 AM EST 150 mg 150 mg, Oral, Once, 08/31/19 at 0915, For 1 dose dextrose 5 % and sodium Rate/Dose Verify 08/31/2019 6:00 AM EST 75 mL/hr chloride 0.45 % infusion at 75 mL/hr, Intravenous, Continuous, Starting Mon08/30/19 at 1000, For 30 days Rate/Dose Verify 08/31/2019 4:00 AM EST 75 mL/hr Restarted - All Meds 08/31/2019 1:55 AM EST 75 mL/hr dextrose 5 % and sodium chloride 0.45 % New Bag 08/31/2019 10:37 AM EST 75 mL/hr infusion at 75 mL/hr, Intravenous, Continuous, Starting 08/31/19 at 0915, For 6 hours enoxaparin sodium (LOVENOX) injection 40 mg Given 08/29/2019 9:15 AM EST 40 mg 40 mg, Subcutaneous, Daily Standard, First dose on Nikki 08/29/19 at 0900, For 30 days, Non Patients: body weight < 150 kg, CrCl > 30 mL/min. Guidelines for Lovenox: MUST wait 24 hours before starting Enoxaparin if patient has epidural catheter. D/C Enoxaparin 10-12 hours prior to removing epidural catheter. May restart Enoxaparin 24 hours after epidural catheter has been removed., fentaNYL (SUBLIMAZE) (PF) Given by IV push 08/31/2019 2:50 AM EST 12.5 mcg injection 12.5 mcg 12.5 mcg, Intravenous, Every 5 min PRN, Moderate Pain (Pain Scale Score 4-6), Starting 08/31/19 at 0148, For 10 doses Given by IV push 08/31/2019 2:45 AM EST 12.5 mcg Given by IV push 08/31/2019 2:40 AM EST 12.5 mcg fentaNYL (SUBLIMAZE) (PF) Given by IV push 08/28/2019 7:40 PM EST 25 mcg injection 25 mcg 25 mcg, Intravenous, Every 5 min PRN, Severe Pain (Pain Scale Score 7-10), Starting 08/28/19 at 2045, For 10 doses, Recovery Given by IV push 08/28/2019 7:35 PM EST 25 mcg Given by IV push 08/28/2019 7:30 PM EST 25 mcg fentaNYL (SUBLIMAZE) bolus from bag Bolus from Bag 08/29/2019 6:08 AM EST 25 mcg 25 mcg 25 mcg, Intravenous, Every 2 hours PRN, breakthrough pain, Starting 08/28/19 at 1954, For 3 days Bolus from Bag 08/29/2019 3:51 AM EST 25 mcg Bolus from Bag 08/29/2019 12:18 AM EST 25 mcg fentaNYL (SUBLIMAZE) MANUFACTURING MECHANIC 50 MODIFY/HANDOFF OF 08/29/2019 7:18 AM mcg/mL CONTROLED SUBSTANCE DRIP EST Intravenous, Continuous, Starting 08/28/19 at 2000, For 3 days MODIFY/HANDOFF OF CONTROLED SUBSTANCE DRIP 08/28/2019 8:39 PM EST START/CHANGED BAG - CONTROLLED SUBSTANCE DRIP 08/28/2019 8:01 PM EST heparin in NaCl 0.45 % New Bag 09/03/2019 7:39 AM EST 1,800 Units/hr 36 mL /hr infusion 50 units/mL 1,800 Units/hr (36 mL/hr), Intravenous, at 36 mL/hr, Continuous, Starting Mon08/30/19 at 1000, For 30 days, Adult Low Dose / No Bolus Protocol., Heparin Rate Change 09/03/2019 3:50 AM EST 1,800 Units/hr 36 mL/hr Rate/Dose Verify 09/03/2019 2:00 AM EST 1,900 Units/hr 38 mL/hr iohexol (OMNIPAQUE) New Syringe/Cartridge 09/02/2019 5:11 PM 100 mLs Right Arm 350 MG/ML contrast EST injection 100 mL 100 mL, Given by IV, 1 TIME IMAGING, 09/02/19 at 1700, For 1 dose lactated ringers bolus 500 mL New Bag 08/31/2019 2:47 AM EST 500 mLs 500 mL/hr 500 mL, Intravenous, Once, 08/31/19 at 0245, For 1 dose, Recovery magnesium sulfate infusion 2 g/50 New Bag 08/29/2019 9:19 AM EST 16 mEq 50 mL/hr mL (premix) 16 mEq, Intravenous, Administer over 60 Minutes, Once, Nikki 08/29/19 at 0830, For 1 dose, each 8 mEq equivalent to 1 gm, morphine sulfate (PF) injection 2 Given by IV push 08/31/2019 2:05 AM EST 2 mg mg 2 mg, Intravenous, Every 5 min PRN, Severe Pain (Pain Scale Score 7-10), Starting 08/31/19 at 0148, For 5 doses Given by IV push 08/31/2019 2:00 AM EST 2 mg NaCl infusion 0.9 % Rate/Dose Verify 08/29/2019 6:00 AM EST 125 mL/hr at 125 mL/hr, Intravenous, Continuous, Starting 08/28/19 at 2000, For 30 days Rate/Dose Verify 08/29/2019 4:00 AM EST 125 mL/hr Rate/Dose Verify 08/29/2019 2:00 AM EST 125 mL/hr oxyCODONE (ROXICODONE) immediate release Given 09/01/2019 5:13 AM EST 10 mg tablet 10 mg 10 mg, Oral, Every 4 hours PRN, Severe Pain (Pain Scale Score 7-10), Starting Nikki 08/29/19 at 0725, For 3 days, Oxycodone immediate release is limited to 10 mg per dose. Higher doses ( only) require Pain Service consultation and approval., Given 08/31/2019 10:39 PM EST 10 mg Given 08/31/2019 1:19 PM EST 10 mg oxyCODONE (ROXICODONE) immediate release Given 08/31/2019 6:00 PM EST 5 mg tablet 5 mg 5 mg, Oral, Every 4 hours PRN, Moderate Pain (Pain Scale Score 4-6), Starting Nikki 08/29/19 at 0725, For 3 days, Oxycodone immediate release is limited to 10 mg per dose. Higher doses ( only) require Pain Service consultation and approval., Given 08/31/2019 8:15 AM EST 5 mg Given 08/30/2019 1:37 PM EST 5 mg rivaroxaban (XARELTO) tablet 2.5 mg Given 08/29/2019 8:14 PM EST 2.5 mg 2.5 mg, Oral, 2 Times Daily, First dose (after last modification) on [facility] 08/29/19 at 2100, For 5 days documented in this encounter
[2019-09-21] MEDS ORDERED: NS 0.9% 1000 ML** 1,000 ML IV ONE ×2 (08:33→19:35)
[2019-09-21] MEDS ORDERED: Ondansetron INJ* 2 MG/ML VIAL IV ONE (08:33)
--- NOTE | 2019-09-21 08:43 | ED ---
Complex/Multi-Sys Presentation - HPI Summary HPI Summary: Patient is a 73 y/o male who had vascular surgery two weeks ago and presents to [facility] with complaints of lower back pain, difficulty standing up, dark and concentrated urine, N/V. He states that he has been nauseous for the past two days and experienced onset of vomiting and difficulty standing up this morning, 09/21/19. CP, SOB, sore throat, rhinorrhea are denied. Patient had surgery at [facility] and notes that he had been evaluated by his surgeon recently, who was unconcerned about the patient. PMHx of peripheral vascular disease, HTN , HLD, GI bleed, ulcer. PSHx of fem-fem bypass in 2017. Patient is a former smoker and denies alcohol and substance usage. Home medications and allergies are reviewed. - History Of Current Complaint Time Seen by Provider: 09/21/19 08:31 Hx Obtained From: Patient Onset/Duration: Still Present Timing: Constant Severity Currently: Moderate Location: Pain At: - back Associated Signs And Symptoms: Positive: Nausea, Vomiting, Back Pain, Other - positive - difficulty standing up, dark and concentrated urine - Allergies/Home Medications Allergies/Adverse Reactions: Allergies Allergy/AdvReac Type Severity Reaction Status Date / Time No Known Allergies Allergy Verified 09/21/19 09:23 Home Medications: Home Medications Chlorthalidone 25 mg PO DAILY 09/21/19 [History Confirmed 09/21/19] Indomethacin ER* [Indocin ER] 75 mg PO DAILY 09/21/19 [History Confirmed ] Oxycodone HCl 5 mg PO Q6H PRN 09/21/19 [History Confirmed 09/21/19] Pantoprazole TAB * [Protonix TAB*] 40 mg PO DAILY 09/21/19 [History Confirmed ] Rivaroxaban [Xarelto] 2.5 mg PO DAILY 09/21/19 [History Confirmed 09/21/19] PMH/Surg Hx/FS Hx/Imm Hx Endocrine/Hematology History: Denies: Hx Diabetes Cardiovascular History: Reports: Hx Hypercholesterolemia, Hx Hypertension, Hx Peripheral Vascular Disease, Other Cardiovascular Problems/Disorders Denies: Hx Pacemaker/ICD GI History: Reports: Hx Gastrointestinal Bleed, Hx Ulcer History: Denies: Hx Dialysis, Hx Renal Disease Musculoskeletal History: Reports: Hx Arthritis, Hx Bursitis, Hx Gout Sensory History: Reports: Hx Contacts or Glasses - for reading Denies: Hx Hearing Aid Opthamlomology History: Reports: Hx Contacts or Glasses - for reading Psychiatric History: Denies: Hx Panic Disorder - Surgical History Surgery Procedure, Year, and Place: endarectomy 2011 cataract. Lt knee surgery. FEM-FEM BYPASS 2017 Hx Anesthesia Reactions: No Infectious Disease History: No Infectious Disease History: Denies: Traveled Outside the [place] in Last 30 Days - Family History Known Family History: Negative: Cardiac Disease, Hypertension, Diabetes - Social History Alcohol Use: None Substance Use Type: Reports: None Smoking Status (MU): Former Smoker Type: Cigarettes Amount Used/How Often: 1 ppd Length of Time of Smoking/Using Tobacco: 53 YEARS Have You Smoked in the Last Year: No Review of Systems Constitutional: Other - positive - difficulty standing up Positive: Vomiting, Nausea Genitourinary: Other - positive - dark and concentrated urine Positive: Myalgia - back pain All Other Systems Reviewed And Are Negative: Yes Physical Exam - Summary Physical Exam Summary: VITAL SIGNS: Reviewed. GENERAL: Patient is a well-developed and nourished male who is lying comfortable in the stretcher. Patient is not in any acute respiratory distress. HEAD AND FACE: No signs of trauma. No ecchymosis, hematomas or skull depressions. No sinus tenderness. EYES: PERRLA, EOMI x 2, No injected conjunctiva, no nystagmus. EARS: Hearing grossly intact. Ear canals and tympanic membranes are within normal limits. MOUTH: Oropharynx within normal limits. Dry oral mucosa noted. NECK: Supple, trachea is midline, no adenopathy, no JVD, no carotid bruit, no c- spine tenderness, neck with full ROM. CHEST: Symmetric, no tenderness at palpation. LUNGS: Clear to auscultation bilaterally. No wheezing or crackles. CVS: Regular rate and rhythm, S1 and S2 present, no murmurs or gallops appreciated. ABDOMEN: Soft, non-tender. No signs of distention. No rebound, no guarding, and no masses palpated. Bowel sounds are normal. EXTREMITIES: FROM in all major joints, no edema, no cyanosis or clubbing. There is a well-healing wound to the right leg without any erythema, discharge, or tenderness. The patient has a necrotic fourth toe to the right foot. NEURO: Alert and oriented x 3. No acute neurological deficits. Speech is normal and follows commands. SKIN: Dry and warm with increased turgor of skin. Triage Information Reviewed: Yes Vital Signs On Initial Exam: Initial Vitals Temp Pulse Resp BP Pulse Ox 102.5 F 113 20 112/54 93 09/21/19 08:29 09/21/19 08:29 09/21/19 08:29 09/21/19 08:29 09/21/19 08:29 Vital Signs Reviewed: Yes Procedures - Sedation Patient Received Moderate/Deep Sedation with Procedure: No Diagnostics - Vital Signs Vital Signs Temp Pulse Resp BP Pulse Ox 09/21/19 08:29 102.5 F 113 20 112/54 93 - Laboratory Result Diagrams: 09/21/19 09:09/21/19 09:01 Lab Statement: Any lab studies that have been ordered have been reviewed, and results considered in the medical decision making process. - Radiology CXR Radiology Interpretation Completed By: Radiologist Summary of Radiographic Findings: IMPRESSION: Left retrocardiac airspace opacification is best seen on the lateral view. THIS REPORT WAS REVIEWED BY ED PHYSICIAN. ABDOMEN X-RAY Radiology Interpretation Completed By: Radiologist Summary of Radiographic Findings: Impression: 1. SEVERAL DISTENDED GASEOUS LOOPS OF BOWEL WITH GAS EXTENDING TO THE RECTUM. 2. VASCULAR CALCIFICATIONS. 3. POSTOPERATIVE CHANGES ABOVE. THIS REPORT WAS REVIEWED BY ED PHYSICIAN. - EKG 0933 Cardiac Rate: Tachycardia - rate of 108 bpm EKG Rhythm: Sinus Tachycardia Summary of EKG Findings: EKG showed sinus tachycardia with rate of 108 BPM, some ST depression in leads II, III, aVF, V5-V6, no ST elevations, no STEMI. ED physician has reviewed and interpreted this EKG. Complex Multi-Symp Course/Dx Assessment/Plan: Patient is a 73 y/o male who had vascular surgery two weeks ago and presents to [facility] with complaints of lower back pain, difficulty standing up, dark and concentrated urine, N/V. He states that he has been nauseous for the past two days and experienced onset of vomiting and difficulty standing up this morning, 09/21/19. CP, SOB, sore throat, rhinorrhea are denied. Patient had surgery at [facility] and notes that he had been evaluated by his surgeon recently, who was unconcerned about the patient. PMHx of peripheral vascular disease, HTN, HLD, GI bleed, ulcer. PSHx of fem-fem bypass in 2017. Patient is a former smoker and denies alcohol and substance usage. In the ED course the patient was placed in a nuclear monitoring technician, IV access was obtained, IV fluids started and given Zofran for Nausea and Vomiting. Blood test w/o a significant abnormality except for WBCs of 19.6, hemoglobin 10.3, hematocrit 31 , absolute neutrophils of 18.7, sodium 127, chloride 92, BUN is 50, creatinine 1.56, glucose 1:30, lactic acid 2.6, magnesium 1.3, AST 419, AST is 53, troponin 0.07, CRP of 385, BNP 237. Influenza A and B are negative. Abdominal x-ray impression: 1. SEVERAL DISTENDED GASEOUS LOOPS OF BOWEL WITH GAS EXTENDING TO THE RECTUM. 2. VASCULAR CALCIFICATIONS. 3. POSTOPERATIVE CHANGES ABOVE. CXR impression: Left retrocardiac airspace opacifications. Therefore, likely patient is developing pneumonia. In the ED course I would place the patient antibiotics since the patient is septic with source. Troponin is elevated, therefore, he was given ASA. This time I discussed my physical exam and findings with Dr. Toro who accepted the patient for admission. The patient is hemodynamically stable alert oriented 3. - Diagnoses Provider Diagnoses: Sepsis, Dehydration, Acute renal insufficiency, Elevated troponin - Physician Notifications Discussed Care Of Patient With: Danielle Toro Time Discussed With Above Provider: 10:10 Instructed by Provider To: Other - Patient's case was discussed with Dr. Toro , Dr. Toro accepts for admission Discharge ED - Sign-Out/Discharge Documenting (check all that apply): Patient Departure - admit - Discharge Plan Condition: Stable Disposition: ADMITTED TO [facility] - Billing Disposition and Condition Condition: STABLE Disposition: Admitted to [facility] - Attestation Statements Document Initiated by Scribe: Yes Documenting Scribe: SERGIO GARCÍA Provider For Whom Lisa is Documenting (Include Credential): ANABEL ORNELAS MD Scribe Attestation: SERGIO Leso, scribed for ANABEL ORNELAS MD on 09/21/19 at 1850. Scribe Documentation Reviewed: Yes Provider Attestation: The documentation as recorded by the SERGIO santana accurately reflects the service I personally performed and the decisions made by , ANABEL ORNELAS MD Status of Scribe Document: Viewed
[2019-09-21] MEDS ORDERED: Ketorolac INJ* 30 MG/ML 1 ML VIAL IV PUSH ONE (09:22)
[2019-09-21 09:37] LABS: ALT 53 U/L (7-52); AST 419 U/L (13-39); Albumin 3.6 g/dL (3.2-5.2); Albumin/Globulin Ratio 1.2 (1-3); Alkaline Phosphatase 78 U/L (34-104); Anion Gap 11 mmol/L (2-11); BUN/Creatinine Ratio 19.2 (8-20); Blood Urea Nitrogen 30 mg/dL (6-24); C Reactive Protein 385.73 mg/L (<8.01); CO2 Carbon Dioxide 24 mmol/L (22-32); Calcium 8.9 mg/dL (8.6-10.3); Chloride 92 mmol/L (101-111); EGFR African American 53.2 (>60); Glucose 130 mg/dL (70-100); Magnesium 1.3 mg/dL (1.9-2.7); Potassium 3.7 mmol/L (3.5-5.0); Sodium 127 mmol/L (135-145); Total Protein 6.6 g/dL (6.4-8.9)
[2019-09-21 09:40] LABS: Troponin I 0.07 ng/mL (<0.03)
[2019-09-21] MEDS ORDERED: Magnesium Sulfate 1 GM IV* 1 GM/100 ML BAG IV ONE (09:58)
[2019-09-21 10:05] LABS: Influenza A Molecular Negative (Negative); Influenza B Molecular Negative (Negative)
[2019-09-21 10:05] LABS: ABS Lymphocytes 0.2 10^3/ul (1.0-4.8); ABS Monocytes 0.7 10^3/ul (0-0.8); ABS Neutrophils 18.7 10^3/ul (1.5-7.7); Hematocrit 31 % (42-52); Hemoglobin 10.3 g/dL (14.0-18.0); Lymphocyte % 1.1 %; Mean Corpuscular HGB Conc 33 g/dL (31-36); Mean Corpuscular Hemoglobin 31 pg (27-31); Mean Corpuscular Volume 92 fL (80-94); Mean Platelet Volume 7.9 fL (7.4-10.4); Platelet Count 288 10^3/uL (150-450); Red Blood Count 3.38 10^6 /uL (4.18-5.48); Red Cell Distribution Width 15 % (10-15); White Blood Count 19.6 10^3/uL (3.5-10.8)
[2019-09-21] MEDS ORDERED: Piperacillin/Tazobac ADVAN(*) 3.375 GM in NS 0.9% 100 ML* 100 ML IVPB ONE (10:32)
[2019-09-21] MEDS ORDERED: Aspirin 81 mg CHEW TAB* 81 MG TAB.CHEW PO ONE (10:35)
[2019-09-21] MEDS ORDERED: Ondansetron INJ* 2 MG/ML VIAL IV PRN (11:57)
[2019-09-21] MEDS ORDERED: Vancomycin per Pharmacy* NOTE FOLLOW UP SCH (12:00)
[2019-09-21] MEDS ORDERED: Lactated Ringers 1000 ML Bag* 1,000 ML IV SCH ×3 (12:00→18:00)
[2019-09-21 12:27] LABS: Urine Appearance Cloudy; Urine Bilirubin Negative (Negative); Urine Blood 3+ (Negative); Urine Color Amber; Urine Glucose Negative (Negative); Urine Ketones Negative (Negative); Urine Nitrite Negative (Negative); Urine Protein 2+(100 mg/dL) (Negative); Urine Specific Gravity 1.018 (1.010-1.030); Urine Urobilinogen Negative (Negative)
[2019-09-21 12:32] LABS: Urine Bacteria Absent (Absent); Urine Granular Casts Present (Absent); Urine Red Blood Cell Absent (Absent); Urine White Blood Cell Trace(0-5/hpf) (Absent)
--- NOTE | 2019-09-21 12:33 | HP ---
CC: Dr. Geronimo; Dr. Fernando * HISTORY AND PHYSICAL: DATE OF ADMISSION: 09/21/19 PRIMARY CARE PROVIDER: Dr. Geronimo. VASCULAR SURGEON: Dr. Fernando. ATTENDING PHYSICIAN: Dr. Danielle Mcgraw * (dictation provided by Josefa Mcknight NP ). CHIEF COMPLAINT: Nausea, vomiting, and malaise. HISTORY OF PRESENT ILLNESS: Mr. Nino is a 73-year-old male with past medical history of peripheral arterial disease, hypertension, who had recent surgery 3 weeks ago on his right leg for peripheral revascularization with Dr. Salinas, who presents today to the hospital with concern for nausea, vomiting x1, and malaise. Mr. Nino states that he had surgery on his right leg about 3 weeks. He did follow up with Dr. Fernando yesterday. He did not note to her that he had been feeling unwell for a couple of days. She examined him and per his report had no concern. He seems to suggest that may be there was some purulent drainage from his right groin site but there is none noted today. The patient states he has just been feeling tired and generally unwell without much in the way of a specific complaint. He did have nausea. He has had poor appetite. He vomited x1 today. He is not aware that he had a fever at home but was febrile here on arrival to 102.5. The patient states his last bowel movement was yesterday and then it was normal for him. He has been passing gas since then. The patient does have an ulceration with eschar to his 4th toe on the right and he states this is unchanged and is actually "looking better." This ulceration was impetus for his recent right leg revascularization. In the emergency room, as noted he is febrile. He has leukocytosis with a white blood cell count of 19.6. His CRP is dramatically elevated at 385.73. His troponin is elevated at 0.07. His BUN and creatinine are elevated with creatinine of 1.56 and BUN of 30. He is hyponatremic with a sodium of 127. His chest x-ray shows no acute process. Urinalysis is pending. PAST MEDICAL HISTORY: 1. Peripheral arterial disease with surgery to both left and right leg but most recently to right leg about 3 weeks ago. 2. Hypertension. 3. Gout. 4. Hyperlipidemia. 5. Neuropathy. MEDICATIONS: 1. Rivaroxaban 2.5 mg p.o. daily. 2. Lisinopril 40 mg p.o. daily. 3. Amlodipine 2.5 mg p.o. b.i.d. 4. PreserVision softgel 2 each p.o. daily. 5. Pantoprazole 40 mg p.o. daily. 6. Oxycodone 5 mg p.o. q.6 hours p.r.n. 7. Indomethacin 75 mg p.o. daily. 8. Gabapentin 300 mg p.o. t.i.d. 9. Chlorthalidone 25 mg p.o. daily. 10. Atorvastatin 40 mg p.o. q.p.m. 11. Aspirin 81 mg p.o. daily. 12. Allopurinol 300 mg p.o. daily. ALLERGIES: No known drug allergies. FAMILY HISTORY: The patient states his mother and father "a while ago." He does not know any information about the cause of . SOCIAL HISTORY: He is a former smoker of about 50 years. He quit 5 years ago. He drinks alcohol occasionally. No reported drug use. He lives with his and states she would be the healthcare proxy. REVIEW OF SYSTEMS: A 14-point review of systems was completed with Mr. Nino and all those not mentioned above were negative. PHYSICAL EXAMINATION GENERAL: Mr. Nino is lying in the bed. He looks in no acute distress. VITAL SIGNS: Temperature 102.5 on arrival, it is now 101.3; pulse rate 101; respiratory rate 27; O2 saturation 97% on room air; blood pressure 99/47. LUNGS: Clear to auscultation bilaterally with no accessory muscle use and good aeration. HEART: S1, S2. No murmur, rub, or gallop and regular. ABDOMEN: Soft, nontender with bowel sounds positive x4. EXTREMITIES: No cyanosis. No edema. Feet are warm. Pulses are minimally palpable. He has a long incision to his right calf with harsha without any drainage or erythema. He has an incision to his right groin with some mild erythema. No drainage. NEUROLOGIC: He is alert, he is oriented x3. He moves all extremities equally. There is no facial asymmetry or focal weakness. Extraocular movements are intact. SKIN: Incisions with harsha as noted above. Ulceration with black eschar to 4th toe on the right, no erythema or drainage. DIAGNOSTIC STUDIES/LAB DATA: WBC 19.6, hemoglobin 10.3, hematocrit 31, platelet count 288. Sodium 127, potassium 3.7, chloride 92, serum bicarbonate 24, BUN 30, creatinine 1.56, glucose 130. Lactic acid 2.6, magnesium 1.3. AST 419, ALT 53. Troponin 0.07. CRP 385.73. BNP 237. Flu swab is negative. Chest x-ray shows left retrocardiac airspace opacification seen in the lateral view. Abdomen x-ray shows gaseous distention. ASSESSMENT: Mr. Nino is a 73-year-old male with a past medical history of hypertension, peripheral arterial disease with recent revascularization surgery with Dr. Fernando, who presents today to the hospital with severe sepsis. Our plans are for inpatient admission, as I expect his length of stay to be greater than 2 days for the followin. Severe sepsis: Source of sepsis is unclear. The patient has a concern for possible infiltrate on x-ray. He has had a recent surgery. His urinalysis is pending. Plan to treat with vancomycin and cefepime given the broad possibilities for his infection and severity of his illness. We will be awaiting blood cultures, urinalysis. We will be following up with a required 6- hour reassessment. He will have a repeat lactic acid. 2. Acute kidney injury: I suspect this is due to dehydration especially in the setting of sepsis and mild hyponatremia. Plan to hydrate and recheck all labs in the a.m. Will avoid nephrotoxins as possible. 3. Elevated troponin: I suspect this is due to demand ischemia in the setting of his illness. We will cycle troponin x3 and he will be monitored on telemetry unit. If his troponins continue to rise, we can consider echocardiogram and consultation with cardiology. 4. Hypertension: Plan to hold his routine medications of hypertension given sepsis and relatively low blood pressure. 5. DVT prophylaxis with Xarelto. 6. Code status is full code. This was reviewed with him at the bedside. 7. Disposition, to telemetry floor. TIME SPENT: Approximately 60 minutes was spent on the admission of this patient , more than half the time was spent with the patient at the bedside reviewing the events leading up to this hospitalization, performing the physical examination, and reviewing my plan of care. JOSEFA MCKNIGHT PENCIL MAKER [id number]/[facility] #: [id number] RIANA
[2019-09-21] MEDS ORDERED: Vancomycin(*) 1,500 MG in NS 0.9% 250 ML* 250 ML IVPB ONE (13:00)
[2019-09-21 13:23] LABS: Troponin I 0.06 ng/mL (<0.03)
--- NOTE | 2019-09-21 13:29 | PN ---
Sepsis Event Evaluation Date of Evaluation: 09/21/19 Time of Evaluation: 13:29 Current Stage of Sepsis: Severe Sepsis Vital Signs - Last 12 Hours: Vital Signs - 12 hr Temp Pulse Resp BP Pulse Ox 09/21/19 13:09 99.3 F 95 26 98/53 94 09/21/19 12:01 25 99/54 09/21/19 12:00 22 09/21/19 11:31 97 26 105/51 91 09/21/19 11:30 96 23 100/53 95 09/21/19 11:00 100 24 99 09/21/19 10:33 99 27 99/47 97 09/21/19 10:20 101.3 F 09/21/19 10:01 108 30 114/53 100 09/21/19 10:00 112 21 100 09/21/19 09:31 108 21 136/54 100 09/21/19 09:00 114 26 100 09/21/19 08:32 26 112/54 09/21/19 08:29 102.5 F 113 29 112/54 93 Lactic Acid: 09/21/19 09/21/19 08:58 12:54 Lactic Acid 2.6 H* 1.2 - Cardiopulmonary Exam Respiratory: Symmetrical Chest Expansion and Respiratory Effort Cardiovascular: NL Sounds; No Murmurs; No JVD, No Edema - Peripheral Pulse Exam Radial Pulses: Bilateral Normal - Skin Exam Skin Exam: Normal Turgor - Pascual Coma Scale Best Eye Response: 4 - Spontaneous Best Motor Response: 6 - Obeys Commands Best Verbal Response: 5 - Oriented Coma Scale Total: 15 Assess/Plan/Problems-Billing Assessment:
[2019-09-21] MEDS: Gabapentin CAP(*) 300 MG PO SCH ×2 (14:06→20:11)
[2019-09-21] MEDS ORDERED: Magnesium Sulfate IV* 3 GM in NS 0.9% 100 ML* 100 ML IVPB ONE (14:45)
[2019-09-21] MEDS: oxyCODONE TAB* 5 MG TAB PO PRN (15:42)
--- NOTE | 2019-09-21 15:59 | PN ---
Progress Note - Progress Note Date of Service: 09/21/19 Note: Plan for IVF bolus of 1 Liter for tachycardia and mild hypotension. Lactic acidosis resolved.
[2019-09-21 17:06] LABS: Troponin I 0.06 ng/mL (<0.03)
[2019-09-21] MEDS: Atorvastatin* 40 MG TAB PO SCH (17:42)
[2019-09-21] MEDS ORDERED: Cefepime 1 GM in Dextrose(*) 1 GM/50 ML BAG IV SCH (18:00)
[2019-09-21] MEDS: Cefepime 1 GM in Dextrose(*) 1 GM/50 ML BAG IV SCH (19:55)
[2019-09-21] MEDS: Acetaminophen TAB* 325 MG PO PRN (20:12)
[2019-09-21] MEDS: NS 0.9% 1000 ML** 1,000 ML IV SCH (21:12)
[2019-09-22] MEDS ORDERED: Vancomycin(*) 1,250 MG in NS 0.9% 250 ML* 250 ML IVPB SCH (02:00)
[2019-09-22] MEDS: Acetaminophen TAB* 325 MG PO PRN ×3 (02:14→22:03)
[2019-09-22] MEDS: oxyCODONE TAB* 5 MG TAB PO PRN ×3 (02:17→20:00)
[2019-09-22 06:04] LABS: ABS Lymphocytes 0.2 10^3/ul (1.0-4.8); ABS Monocytes 0.6 10^3/ul (0-0.8); Hematocrit 25 % (42-52); Hemoglobin 8.5 g/dL (14.0-18.0); Lymphocyte % 1.6 %; Mean Corpuscular HGB Conc 34 g/dL (31-36); Mean Corpuscular Hemoglobin 31 pg (27-31); Mean Corpuscular Volume 93 fL (80-94); Mean Platelet Volume 7.9 fL (7.4-10.4); Platelet Count 180 10^3/uL (150-450); Red Blood Count 2.72 10^6 /uL (4.18-5.48); Red Cell Distribution Width 15 % (10-15); White Blood Count 12.9 10^3/uL (3.5-10.8)
[2019-09-22 06:15] LABS: Albumin 2.9 g/dL (3.2-5.2); Albumin/Globulin Ratio 1.1 (1-3); BUN/Creatinine Ratio 23.2 (8-20); Calcium 7.7 mg/dL (8.6-10.3); EGFR African American 59.3 (>60); Globulin 2.7 g/dL (2-4); Magnesium 2.3 mg/dL (1.9-2.7); Potassium 3.6 mmol/L (3.5-5.0); Total Bilirubin 0.6 mg/dL (0.2-1.0); Total Protein 5.6 g/dL (6.4-8.9)
[2019-09-22] MEDS: Aspirin EC TAB* 81 MG TAB.EC PO SCH (09:02)
[2019-09-22] MEDS: Gabapentin CAP(*) 300 MG PO SCH ×3 (09:02→22:03)
[2019-09-22] MEDS: Pantoprazole TAB * 40 MG TAB PO SCH (09:03)
[2019-09-22] MEDS: Allopurinol TAB* 300 MG PO SCH (09:03)
[2019-09-22] MEDS: INDOMETHACIN 75 MG PO SCH (09:05)
[2019-09-22] MEDS: RIVAROXABAN 2.5 MG PO SCH ×2 (09:05→22:04)
[2019-09-22] MEDS: Cefepime 1 GM in Dextrose(*) 1 GM/50 ML BAG IV SCH ×2 (09:05→20:01)
[2019-09-22] MEDS: NS 0.9% 1000 ML** 1,000 ML IV SCH (11:03)
--- NOTE | 2019-09-22 11:33 | ECHO ---
*[facility], [place]* [place] [address] Fax #: [phone] Transthoracic Echocardiogram Patient: Mehul Nino : 1945 Study Date: 09/22/2019 Age: 73 Gender: M HR: 113 bpm Height: 68 in /172.7 cm BSA: 1.95 m^2 Weight: 179.6 lb /81.6 kg BMI: 27.4 kg/m^2 *Decontamination Technician: Candelaria Martínez *Referring Physician: * Josefa McknightReading Physician: * Yoav Abraham MD Indications: Bacteremia. History: Risk factors: Former tobacco use. Hypertension. Dyslipidemia. Conclusions Summary: - Left ventricle: The cavity size is normal. Wall thickness is mildly increased. Systolic function is normal. The estimated ejection fraction is 60-65%. Wall motion is normal; there are no regional wall motion abnormalities. - Right ventricle: The cavity size is normal. Systolic function is normal. - Left atrium: The atrium is mildly dilated. - No significant valvular abnormalities noted Recommendations: Compared to prior from 05/2018, findings are similar. Study data: Transthoracic echocardiogram. Procedure: Transthoracic echocardiography was performed. Image quality was adequate. The study was technically limited due to body habitus and COPD. Complete 2D, spectral Doppler, and color flow Doppler. Location: Bedside. Patient status: Inpatient. Patient room number: 441-2. Rhythm: Tachycardia. Findings Left ventricle: The cavity size is normal. Wall thickness is mildly increased. Systolic function is normal. The estimated ejection fraction is 60-65%. Wall motion is normal; there are no regional wall motion abnormalities. Left ventricular diastolic function parameters are normal. Right ventricle: The cavity size is normal. Systolic function is normal. Left atrium: The atrium is mildly dilated. Right atrium: The atrium is normal in size. Mitral valve: The leaflets are normal thickness. No echocardiographic evidence for prolapse. There is no evidence of stenosis. There is mild regurgitation. Aortic valve: The valve is trileaflet. The leaflets are normal thickness. There is no evidence of stenosis. There is trace regurgitation. Tricuspid valve: The valve is structurally normal. The leaflets are normal thickness. There is no evidence of stenosis. There is trace regurgitation. Pulmonic valve: The valve is structurally normal. There is no evidence of stenosis. There is trace regurgitation. Aorta: The aortic root appears normal. The aortic arch appears normal. Pericardium: There is no significant pericardial effusion. Pulmonary arteries: Systolic pressure is within the normal range, estimated to be 30 mm Hg. Systemic veins: Inferior vena cava: There is (>= 50%) respiratory change in the IVC dimension. Pulmonary veins: The Pulmonary veins appear normal. Measurements Left ventricle Value Ref Right atrium continued Value Ref MARIA DEL ROSARIO, LAX 4.4 cm 4.2 - ML dim, ES, A4C 3.6 cm 2.6 - 5.8 4.4 ESD, LAX 2.6 cm 2.5 - SI dim, ES, A4C 4.9 cm 3.4 - 4.0 5.3 FS, LAX 40 % 25 - 43 PW, ED, LAX (H) 1.2 cm 0.6 - Aortic valve Value Ref 1.0 Peak v, S 1.45 m/sec -------- FS 40 % 25 - 43 VTI, S 34.6 cm -------- Mid-wall FS 15 % -------- Mean grad, S 5.0 mm Hg -------- PW, ED (H) 1.2 cm 0.6 - Peak grad, S 8.0 mm Hg -------- 1.0 KWASI, VTI 2.60 cm^2 -------- PW/ID, ED 0.26 -------- KWASI, Vmax 2.60 cm^2 -------- Qs 7 L/min -------- E', lat avis, TDI (L) 9.6 cm/sec >=10.0 Mitral valve Value Ref E/e', lat avis, TDI 12 -------- Peak E 1.13 m/sec --- ----- E', med avis, TDI 9.1 cm/sec >=7.0 Peak A 0.63 m/sec -------- E/e', med avis, TDI 12 -------- Decel time 206 ms --- ----- E', avg, TDI 9.4 cm/sec -------- Peak grad, D 5.1 mm Hg --- ----- E/e', avg, TDI 12 <=14 Peak E/A ratio 1.8 -------- LVOT Value Ref Pulmonic valve Value Ref Diam, S 2.00 cm -------- Peak v, S 0.79 m/sec -------- Area 3.1 cm^2 -------- Peak grad, S 3.0 mm Hg -------- Peak jossie, S 1.2 m/sec -------- Peak grad, S 6 mm Hg -------- Tricuspid valve Value Ref Mean grad, S 3 mm Hg -------- TR peak v 2.48 m/sec <=2.8 SV 90 ml -------- Peak RV-RA grad, 25 mm Hg -------- S Ventricular septum Value Ref Max TR jossie 2.2 m/sec -------- IVS, ED (H) 1.2 cm 0.6 - 1.0 Aortic root Value Ref Root diam 3.2 cm <4.1 Right ventricle Value Ref MARIA DEL ROSARIO, LAX 3.5 cm -------- Ascending aorta Value Ref MARIA DEL ROSARIO minor ax, A4C (H) 4.0 cm 1.9 - AAo AP diam, S 3.3 cm -------- mid 3.5 Decending aorta Value Ref Left atrium Value Ref Yang peak jossie 0.59 m/sec -------- ML dim, A4C 4.6 cm -------- SI dim, A4C 5.9 cm -------- Inferior vena cava Value Ref Vol/bsa, ES, 1-p 27 ml/m^2 12 - 37 Diam 2.0 cm -------- A4C Vol/bsa, ES, A/L (H) 35 ml/m^2 16 - 34 Right atrium Value Ref SI dim, ES 4.9 cm 3.4 - 5.3 Legend: (L) and (H) jovani values outside specified reference range. Prepared and electronically signed by Yoav Abraham MD 09/22/2019 11:33
[2019-09-22] MEDS ORDERED: Cetirizine* 10 MG TAB PO SCH (13:00)
[2019-09-22] MEDS: Collagenase 250 UNITS/GM OINT* 1 APPLIC OINT TOPICAL SCH (13:25)
--- NOTE | 2019-09-22 15:02 | PN ---
Subjective Date of Service: 09/22/19 Interval History: Mr. Nino is feeling poor today. He has no energy and c/o malaise, no specific complaints. He did eat a little breakfast, but appetite is poor. Denies CP, SOB , cough, N/V. Daughter at bedside. No concerns from nursing. Family History: Unchanged from Admission Social History: Unchanged from Admission Past Medical History: Unchanged from Admission Objective Active Medications: Acetaminophen (Tylenol Tab*) 650 mg PO Q6H PRN PAIN - MILD Allopurinol (Zyloprim Tab*) 300 mg PO DAILY [facility] Aspirin (Aspirin Ec Tab*) 81 mg PO DAILY [facility] Atorvastatin Calcium (Lipitor*) 40 mg PO QPM [facility] Collagenase (Santyl 250 Units/Gm Oint*) 1 applic TOPICAL DAILY [facility] Gabapentin (Neurontin Cap(*)) 300 mg PO TID [facility] Sodium Chloride (Ns 0.9% 1000 Ml) 1,000 mls @ 75 mls/hr IV PER RATE [facility] Cefepime HCl (Maxipime 1 Gm In Dextrose Duplex (*)) 1 gm in 50 mls @ 100 mls/ hr IV 0800,2000 [facility] Indomethacin (Indocin Er) 75 mg PO DAILY [facility] Pto - Rivaroxaban [ (Xarelto] 2.5 Mg) 2.5 mg PO BID [facility] Ondansetron HCl (Zofran Inj*) 4 mg IV Q6H PRN NAUSEA Oxycodone HCl (Roxycodone Tab*) 5 mg PO Q6H PRN PAIN - MILD Pantoprazole Sodium (Protonix Tab*) 40 mg PO DAILY [facility] Vital Signs - 8 hr 09/22/19 09/22/19 09/22/19 08:00 08:35 09:02 Temperature 98.2 F Pulse Rate 105 Respiratory 16 16 20 Rate Blood Pressure 110/51 (mmHg) O2 Sat by Pulse 100 Oximetry 09/22/19 09/22/19 09/22/19 11:00 11:09 14:15 Temperature 98.3 F Pulse Rate 114 Respiratory 16 16 16 Rate Blood Pressure 110/44 (mmHg) O2 Sat by Pulse 99 Oximetry Oxygen Devices in Use Now: None Appearance: Elderly male lying in bed in NAD Ears/Nose/Mouth/Throat: Mucous Membranes Moist Neck: NL Appearance and Movements; NL JVP, Trachea Midline Respiratory: Symmetrical Chest Expansion and Respiratory Effort, Clear to Auscultation Cardiovascular: NL Sounds; No Murmurs; No JVD, RRR Abdominal: NL Sounds; No Tenderness; No Distention Extremities: No Edema Skin: - - 3 surgical sites to RLE without erythema Neurological: Alert and Oriented x 3 Lines/Tubes/Other Access: Clean, Dry and Intact Peripheral IV Nutrition: Taking PO's Result Diagrams: 09/22/19 05:41 09/22/19 05:41 Assess/Plan/Problems-Billing Assessment: Mr. Nino is a 73 yo M with PMH of PAD, HTN, gout, HLD, neuropathy; who presented to the ED with c/o malaise, N/V and was found to be septic secondary to bacteremia. - Patient Problems (1) Bacteremia Code(s): R78.81 - BACTEREMIA Comment: - 11/22 BC growing Staph aureus; MRSA negative - Had surgery to RLE 3 weeks ago for PAD with stents placed with Dr. Love Fernando at [facility]; 3 surgical sites (right lower leg and 2 in right groin) not infected, but surgery is the most obvious source of this bacteremia - Only hardware is multiple BLE stents; no pacer or joint replacements - TTE today unremarkable, but will need TERRA to r/o endocarditis - Awaiting surgical records - ID consult tomorrow - Continue cefepime; vanco d/c'd d/t MRSA negative PCR (2) Severe sepsis Code(s): A41.9 - SEPSIS, UNSPECIFIED ORGANISM; R65.20 - SEVERE SEPSIS WITHOUT SEPTIC SHOCK Comment: - Resolving - Met criteria on admission with leukocytosis, tachycardia, fever, elevated lactic - Source is bacteremia - No hypotension - Plan as above (3) ANNI (acute kidney injury) Code(s): N17.9 - ACUTE KIDNEY FAILURE, UNSPECIFIED Comment: - Creatinine elevated on admission, now trending down - Secondary to sepsis - Continue IVF (4) Transaminitis Code(s): R74.0 - NONSPEC ELEV OF LEVELS OF TRANSAMNS & LACTIC ACID DEHYDRGNSE Comment: - AST>>ALT - History of alcohol abuse - Check liver US (5) Elevated troponin Code(s): R79.89 - OTHER SPECIFIED ABNORMAL FINDINGS OF BLOOD CHEMISTRY Comment : - Peaked at 0.07 - Suspect demand ischemia secondary to sepsis (6) PAD (peripheral artery disease) Code(s): I73.9 - PERIPHERAL VASCULAR DISEASE, UNSPECIFIED Comment: - Multiple stents to BLE - Surgery in Aug [address] 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; patient has been using Santyl - Continue aspirin, Xarelto (7) Hypertension Code(s): I10 - ESSENTIAL (PRIMARY) HYPERTENSION Comment: - Soft BPs - Hold amlodipine, lisinopril, chlorthalidone (8) Anemia Code(s): D64.9 - ANEMIA, UNSPECIFIED Comment: - Chronic, consistent with baseline (9) Hyperlipidemia Code(s): E78.5 - HYPERLIPIDEMIA, UNSPECIFIED Comment: - Continue atorvastatin (10) History of gout Code(s): Z87.39 - PERSONAL HISTORY OF DISEASES OF THE MS SYS AND CONN TISS Comment: - Continue allopurinol (11) DVT prophylaxis Comment: - Xarelto (12) Full code status Code(s): Z78.9 - OTHER SPECIFIED HEALTH STATUS Comment: Status and Disposition: Inpatient. Anticipate extended course of IV abx for bacteremia. Attending: Carol Palmer
[2019-09-22] MEDS: Atorvastatin* 40 MG TAB PO SCH (17:15)
[2019-09-23] MEDS: NS 0.9% 1000 ML** 1,000 ML IV SCH (01:52)
[2019-09-23] MEDS ORDERED: Furosemide IV* 10 MG/ML 2 ML VIAL (20 MG) IV ONE (05:33)
--- NOTE | 2019-09-23 06:40 | PN ---
Hospitalist Progress Note Date of Service: 09/23/19 called for SOB, tachy, cxr ordered, rales noted, 20mg lasix given, on follow up per nurse patient improving sob improved making urine on lasix
[2019-09-23 06:45] LABS: ABS Eosinophils 0.1 10^3/ul (0-0.6); ABS Lymphocytes 0.3 10^3/ul (1.0-4.8); ABS Monocytes 0.5 10^3/ul (0-0.8); ABS Neutrophils 10.8 10^3/ul (1.5-7.7); Hematocrit 26 % (42-52); Hemoglobin 8.7 g/dL (14.0-18.0); Lymphocyte % 2.2 %; Mean Corpuscular HGB Conc 33 g/dL (31-36); Mean Corpuscular Hemoglobin 31 pg (27-31); Mean Corpuscular Volume 93 fL (80-94); Mean Platelet Volume 8.6 fL (7.4-10.4); Platelet Count 172 10^3/uL (150-450); Red Blood Count 2.83 10^6 /uL (4.18-5.48); Red Cell Distribution Width 16 % (10-15); White Blood Count 11.7 10^3/uL (3.5-10.8)
[2019-09-23 06:48] LABS: ALT 72 U/L (7-52); AST 341 U/L (13-39); Albumin/Globulin Ratio 1.2 (1-3); Alkaline Phosphatase 89 U/L (34-104); Anion Gap 7 mmol/L (2-11); BUN/Creatinine Ratio 23.8 (8-20); Blood Urea Nitrogen 35 mg/dL (6-24); CO2 Carbon Dioxide 22 mmol/L (22-32); Calcium 8.1 mg/dL (8.6-10.3); Chloride 101 mmol/L (101-111); EGFR Non-African American 47.1 (>60); Globulin 2.6 g/dL (2-4); Glucose 102 mg/dL (70-100); Potassium 3.4 mmol/L (3.5-5.0); Sodium 130 mmol/L (135-145); Total Protein 5.6 g/dL (6.4-8.9)
[2019-09-23 06:49] LABS: Total Iron Binding Capacity 204 mcg/dL (250-450); Transferrin 146 mg/dL (203-362)
[2019-09-23 06:52] LABS: % Iron Saturation 10 % (15-55); Iron < 20 ug/dL (50-212)
[2019-09-23 07:10] LABS: Ferritin 346.8 ng/mL (24-336)
[2019-09-23 07:14] LABS: Folate > 20.00 ng/mL (>3.99)
[2019-09-23 07:44] VITALS: BP 127/51
[2019-09-23] MEDS: Cefepime 1 GM in Dextrose(*) 1 GM/50 ML BAG IV SCH (07:46)
[2019-09-23] MEDS: Pantoprazole TAB * 40 MG TAB PO SCH (07:50)
[2019-09-23] MEDS: Aspirin EC TAB* 81 MG TAB.EC PO SCH (07:50)
[2019-09-23] MEDS: Gabapentin CAP(*) 300 MG PO SCH (07:50)
[2019-09-23] MEDS: Allopurinol TAB* 300 MG PO SCH (07:50)
[2019-09-23] MEDS: INDOMETHACIN 75 MG PO SCH (07:51)
[2019-09-23] MEDS: RIVAROXABAN 2.5 MG PO SCH (07:51)
[2019-09-23] MEDS: Collagenase 250 UNITS/GM OINT* 1 APPLIC OINT TOPICAL SCH (07:53)
[2019-09-23] MEDS: Acetaminophen TAB* 325 MG PO PRN (08:04)
[2019-09-23] MEDS: oxyCODONE TAB* 5 MG TAB PO PRN (08:04)
[2019-09-23] MEDS ORDERED: KCL 20 MEQ/100 ML IVPREMIX* 20 MEQ/100 ML BAG IV ONE (09:23)
[2019-09-23] MEDS ORDERED: Metoprolol Tartrate IV* 1 MG/ML 5 ML VIAL IV ONE (09:26)
[2019-09-23] MEDS ORDERED: Diltiazem IV push/loading dose 5 MG/ML 5 ML vial (25 mg) IV SLOW PU ONE (09:46)
[2019-09-23] MEDS ORDERED: Azithromycin 500 mg/250 ml NS 500 MG/250 ML BAG IVPB ONE ×2 (10:00→12:00)
--- NOTE | 2019-09-23 11:36 | TRS ---
CC: Dr. Vivek Geronimo * TRANSFER SUMMARY: DATE OF ADMISSION: 09/21/19 DATE OF TRANSFER: 09/23/19 PRIMARY CARE PROVIDER: Dr. Vivek Geronimo ATTENDING PHYSICIAN: Dr. Ania Castillo * (DICTATED BY ANDRES CONROY NP) ACCEPTING FACILITY: [facility]. ACCEPTING PHYSICIAN: Dr. Kristin Fernando. PRIMARY DIAGNOSES: 1. Bacteremia, Staphylococcus aureus. 2. Severe sepsis. 3. Acute kidney injury. 4. Transaminitis. 5. Troponinemia. 6. Severe peripheral arterial disease, status post vascular surgery on at [facility]. SECONDARY DIAGNOSES: 1. Hypertension. 2. Anemia. 3. Hyperlipidemia. 4. History of gout. 5. History of alcohol abuse. STUDIES WHILE IN THE HOSPITAL: 1. EKG on 09/21/19 shows sinus tachycardia with a rate of 108. 2. Abdomen x-ray on 09/21/19, reads as severely distended gaseous loops of bowel with gas extending to the rectum. Vascular calcifications. Postoperative changes. 3. Chest x-ray on 09/21/19, reads as left retrocardiac airspace opacification is best seen on the lateral view. 4. Transthoracic echocardiogram on 09/22/19, reads as the left ventricular cavity size was normal. Wall thickness is mildly increased. Systolic function is normal. The estimated ejection fraction of 60% to 65%. Wall motion is normal and there are no regional wall motion abnormalities. The right ventricular cavity size was normal. Systolic function is normal. The left atrium is mildly dilated. There are no significant valvular abnormalities noted. 5. Liver ultrasound on 09/22/19, reads as hepatomegaly with steatosis. There is an incompletely imaged nonmobile shadowing 3 mm echogenic focus in the gallbladder. Repeat right upper quadrant ultrasound in 6 months to evaluate for the possibility of a polyp. No intra or extrahepatic biliary duct dilation. Nonobstructive right nephrolithiasis (0.7 cm). 6. Chest x-ray on 09/23/19, reads as worsening right perihilar and left retrocardiac airspace opacification. This is concerning for pneumonia in the correct clinical contact. 7. EKG on 09/23/19 showed sinus tachycardia with a rate of 114, PACs, borderline T- wave abnormalities in inferior leads. HISTORY OF PRESENT ILLNESS AND HOSPITAL COURSE: Mr. Nino is a 73-year-old male with past medical history of severe peripheral arterial disease, hypertension, gout, hyperlipidemia, and peripheral neuropathy, who presented to the emergency room on 09/21/19 with complaints of nausea, vomiting and malaise. Please see the history and physical by Josefa Mcknight NP for a complete summary of the events leading up to this hospitalization. In short, the patient had vascular surgery with Dr. Fernando at [facility] on 08/28/19, during that time there was a graft placed in the right popliteal vein. The patient did have a followup appointment with Dr. Fernando 1 to 2 days prior to admission to this facility and there were no concerns at that time though the patient started feeling poorly and so presented to the emergency room here on 09/21/19. In the emergency room, he was noted to be febrile up to 102.5. He was meeting criteria for severe sepsis with additional leukocytosis, tachycardia, and elevated lactic acid. Source of infection was not known at that time, though there was significant concern due to the patient's recent vascular surgery. He received Zosyn and vanco and was admitted by the hospitalist service. The patient was continued on cefepime and vanco. The next day on 09/22/19, the patient's blood cultures came back positive 4/4 bottles with Staphylococcus aureus, pansensitive, this was MRSA negative by PCR. After initiation of antibiotics, the patient's fever did resolve. White count has come down from 19.6 on admission to 11.7 as of today, 09/23/19. The patient's lactic acidosis did resolve with IV fluids. He was noted to have an elevated troponin initially at 0.07, which came down to 0.06, this was suspected to be due to demand ischemia. Overnight last night, nursing called the circulation clerk due to shortness of breath and tachycardia. At that point, the patient was given a dose of Lasix. At this point, he is requiring 2 L of oxygen to maintain saturation. There is some concern on chest x- ray that there may be a developing pneumonia and so in addition to be cefepime, I will give the patient a dose of azithromycin this morning. Vanco has been discontinued due to negative MRSA PCR. He is noted to have transaminitis with labs this morning showing AST of 341 and ALT of 72. The cause of this is not entirely clear, but the patient does have a known history of alcoholism though liver ultrasound did not show any significant abnormalities. I did speak with the patient's vascular surgeon, Dr. Fernando this morning. She spoke with the patient's and they are in agreement that the patient should be transferred back up to [facility] at this point due to the potential need for revisional surgery. There is concern that the graft site may become infected, which would necessitate removal of that graft site. I have spoken with the patient about this and he is aware and agreeable to be discharged. Transfer has been arranged through our transfer center. At the time of this dictation, the patient is starting to become tachycardic with rates up into the 150s, this appears on telemetry to be new onset atrial fibrillation. There is an EKG being obtained at that time and we will order a dose of metoprolol and possibly diltiazem if necessary. The plan will be for him to get a dose of azithromycin 20 mEq of IV potassium chloride prior to leaving. Dr. Fernando did ask that the patient's anticoagulation be held this morning if possible, but unfortunately, he has already received a dose this morning. PHYSICAL EXAMINATION: Mr. Nino is a well-developed, well-nourished white elderly male, lying in bed, in no acute distress. He appears his stated age. Vital Signs: Temp 99.6, heart rate 104, respiratory rate 18, oxygen saturation 91% on 2 L, blood pressure 127/51. HEENT: Head is atraumatic, normocephalic. Visual graham are grossly intact. Oral mucous membranes moist. Respiratory: Symmetrical chest expansion. No chest wall deformities. Lung sounds diminished throughout with scattered wheezing. No rhonchi or rubs. Cardiovascular: Regular rate and rhythm. S1, S2 present. No murmurs, rubs, or gallops. No JVD. Extremities: Skin warm and smooth bilaterally. Pedal pulses are 1+ bilaterally. There is no edema. Neuro: Awake, alert, and oriented x4. Moves all extremities. Skin: There is a right lower leg medial incision, which is clean, dry, intact with sutures and harsha in place. There is an incision similarly clean, dry, and intact to the right groin without drainage. There is minimal erythema. There is ulceration and eschar to the right 4th toe without significant erythema or drainage. CURRENT MEDICATIONS: 1. Acetaminophen 650 mg p.o. q.6 hours p.r.n. fever, pain. 2. Allopurinol 300 mg p.o. daily. 3. Aspirin 81 mg p.o. daily. 4. Atorvastatin 40 mg p.o. at bedtime. 5. Cefepime 1 g q.12 hours. 6. Santyl 1 application topically daily to right 4th toe. 7. Gabapentin 300 mg p.o. t.i.d. 8. Indomethacin 75 mg p.o. daily. 9. Ondansetron 4 mg IV q.6 hours p.r.n. nausea and vomiting. 10. Oxycodone 5 mg p.o. q.6 hours p.r.n. pain. 11. Pantoprazole 40 mg p.o. daily. 12. Azithromycin 500 mg I.V. once. DIET: NPO. ACTIVITY: Up with assistance. TRANSFER CONDITION: Fair. [facility] This is a summarized report of a complex medical history and hospital stay. For further details, please see the entire medical record. TIME SPENT: Approximately 90 minutes were spent on the care of this patient and arranging this transfer. ANDRES CONROY INSULATION BOARD BACK TENDER [id number]/[facility] #: [id number] RIANA
[2019-09-23] MEDS ORDERED: Vancomycin Trough Check NOTE FOLLOW UP ONE (13:30)
== END 2019-09-23 11:15 | disposition short-term general hospital (02) | DRG 871 ==
LOC: ED 08:22 → MEDTELE 12:59
PROVIDERS: ADMIT Internal Medicine; ATTEND Internal Medicine
DX: A41.01 Sepsis due to Methicillin susceptible Staphylococcus aureus (principal); J18.9 Pneumonia, unspecified organism; I24.8 Other forms of acute ischemic heart disease; N17.9 Acute kidney failure, unspecified; E87.2 Acidosis; I47.1 Supraventricular tachycardia; T82.7XXA Infection and inflammatory reaction due to other cardiac and vascular devices, implants and grafts, initial encounter; R65.20 Severe sepsis without septic shock; E78.00 Pure hypercholesterolemia, unspecified; I10 Essential (primary) hypertension; I73.9 Peripheral vascular disease, unspecified; M19.90 Unspecified osteoarthritis, unspecified site; E86.0 Dehydration; M10.9 Gout, unspecified; E78.5 Hyperlipidemia, unspecified; R74.0 Nonspecific elevation of levels of transaminase and lactic acid dehydrogenase [LDH]; D64.9 Anemia, unspecified; G62.9 Polyneuropathy, unspecified; Z87.891 Personal history of nicotine dependence; Z79.82 Long term (current) use of aspirin; Z79.899 Other long term (current) drug therapy
CPT/HCPCS: 36415; 71045; 71046; 74019; 76705; 80053; 81003; 81015; 82607; 82728; 82746; 83540; 83550; 83605; 83690; 83735; 83880; 84484; 85025; 86140; 87040; 87077; 87086; 87150; 87186; 87205; 93005; 93306; 99285; A9270-GY; J0456; J0692; J1885; J1940; J2405; J2543; J3370; J3475; J3480; J3490